=== PATIENT | female | born 1975 | race Caucasian/White ===

== ENCOUNTER → 2018-04-06 | Day surgery (SDC) | payer OTHER ==
--- NOTE | 2018-04-08 09:13 | PATH ---
Surgical Pathology Report Patient Name: MAGGY THURMAN [facility]. Rec. #: [id number] /Age/Gender: 1975 (Age: 42) / F Account: [id number] Location: RADIOLOGY [facility] Taken: 04/06/2018 Received: 04/06/2018 Reported: 04/08/2018 Physicians: Alia Phillips CNM Specimen(s) Received A: RIGHT BREAST 9:00 1.94 CM B: RIGHT AXILLARY 1.59 CM Clinical History Palpable mass Mammographic findings: Highly suspicious/malignant Ultrasound findings: Highly suspicious/malignant Final Diagnosis A. RIGHT BREAST UOQ MASS, ULTRASOUND GUIDED CORE BIOPSY: INVASIVE DUCTAL CARCINOMA, POORLY DIFFERENTIATED (CHANELLE GRADING SYSTEM). THE TUMOR MEASURES AT LEAST 1.5CM IN LARGEST DIMENSION. LYMPHOVASCULAR INVASION IDENTIFIED. B. RIGHT AXILLARY ABNORMAL LOOKING LYMPH NODE, ULTRASOUND GUIDED BIOPSY: METASTATIC CARCINOMA, EXTENSIVELY INVOLVING LYMPH NODE TISSUE. Reports for [place], [place], and [facility] to follow. Interdepartmental case reviewed with consensus on diagnosis. This case was discussed with Dr. Burdick on April 08, 2018. Electronically Signed Maggie Mattson M.D. Gross Description A. Received in formalin labeled "right 9:00," are 5 agustin-yellow, cylindrical portions of fibroadipose tissue ranging from 1.2-1.7 cm in length and averaging 0.1 cm in diameter. The specimens are submitted in toto in one cassette. B. Received in formalin labeled "right axilla," are 3 agustin-yellow, cylindrical portions of fibroadipose tissue ranging from 0.3-1.5 cm in length and averaging 0.1 cm in diameter. The specimens are submitted in toto in one cassette. Time to formalin fixation: Less than one minute Total formalin fixation time: Approximately 6 hours. /04/06/2018 saudi04/06/2018
== END | disposition home or self-care (01) ==
LOC: JRADUS-SUR 10:25
PROVIDERS: ATTEND Midwife
PROC: 0HBT3ZX Excision of Right Breast, Percutaneous Approach, Diagnostic (ICD-10-PCS; principal; 2018-04-06)
PROC: 07D53ZX Extraction of Right Axillary Lymphatic, Percutaneous Approach, Diagnostic (ICD-10-PCS; 2018-04-06)
DX: C50.911 Malignant neoplasm of unspecified site of right female breast (principal); C77.3 Secondary and unspecified malignant neoplasm of axilla and upper limb lymph nodes
CPT/HCPCS: 19083; 19084; 88305-TC; A4648

== ENCOUNTER 2018-05-20 05:28 | Day surgery (SDC) | payer OTHER ==
[2018-05-15 15:25] VITALS: BMI 29.9
[2018-05-20] MEDS ORDERED: HEPARIN NA (PORCINE) 5,000 UNITS/ML 1ML VIAL ONE (15:04)
[2018-05-20] MEDS ORDERED: ceFAZolin SODIUM 1 GM VIAL ONE (15:42)
[2018-05-20] MEDS ORDERED: MIDAZOLAM HCL 2 MG/2 ML SINGLE DOSE VIAL ONE ×2 (15:42)
[2018-05-20] MEDS ORDERED: PROPOFOL 20 ML ONE (15:44)
[2018-05-20] MEDS ORDERED: ceFAZolin SODIUM 1 GM VIAL IVPB ONE (15:51)
[2018-05-20] MEDS ORDERED: LIDOCAINE HCL 1%, 10 MG/ML (20ML VIAL) INF ONE (16:00)
[2018-05-20] MEDS ORDERED: HEPARIN NA (PORCINE) 5,000 UNITS/ML 1ML VIAL SQ ONE (16:10)
[2018-05-20] MEDS ORDERED: ONDANSETRON 4 MG/2 ML VIAL IVPUSH PRN (16:36)
[2018-05-20] MEDS ORDERED: ACETAMINOPHEN 325 MG TABLET (FP) PO PRN (16:36)
[2018-05-20] MEDS ORDERED: LACTATED RINGERS SOLUTION 1,000 ML IV SCH (16:45)
[2018-05-20] MEDS ORDERED: ACETAMINOPHEN 325 MG TABLET (FP) ONE (17:02)
[2018-05-20 18:00] VITALS: BP 133/80; PULSE 78; TEMP 97.5
--- NOTE | 2018-05-20 19:34 | OP ---
DATE OF OPERATION: 05/20/2018 PREOPERATIVE DIAGNOSIS: Breast cancer. POSTOPERATIVE DIAGNOSIS: Breast cancer. PROCEDURE: Left Mediport under fluoroscopy. SURGEON: Sara Novoa M.D. ANESTHESIA: Local, IV sedation. ESTIMATED BLOOD LOSS: Minimal. COMPLICATIONS: None. This was a sterile procedure. INDICATION FOR PROCEDURE: Patient presenting with a locally advanced right breast cancer with a positive lymph node in the axilla. Therefore, recommendation for neoadjuvant chemotherapy and venous access was needed for this neoadjuvant chemotherapy. The procedure of a left Mediport was discussed, and all the questions answered. PROCEDURE IN DETAIL: The patient was brought to [facility] in [place], was taken into the operating room, and after IV sedation and IV antibiotics, the left chest and neck were prepped and draped in usual sterile fashion. The area in the upper left chest was anesthetized with 1% lidocaine without epinephrine. A percutaneous stick of the left subclavian vein was performed, and venous return was noted. The Seldinger technique was used to insert the catheter into the superior vena cava. Appropriate positioning was noted under fluoroscopy. The catheter was then tunneled through. A pocket was created for the Mediport device. The system was flushed with heparinized saline at all times. Once the appropriate pocket was created, the Mediport recess was connected to the catheter, cut at the correct length. The system was then flushed with heparinized saline and brief fluoroscopy was performed to note there were no kinks, and the tip was in the SVC. Once this was done the incision was closed in routine fashion, interrupted 2-0 Vicryl, running 4-0 Biosyn. A sterile dressing with Tegaderm, 4x4s applied. She tolerated the procedure well, was taken to recovery in good condition. SARA NOVOA M.D. [id number] MTDD
== END 2018-05-20 18:06 | disposition home or self-care (01) ==
LOC: JASU-SURG 05:28
PROVIDERS: ATTEND Surgery
PROC: B518ZZA Fluoroscopy of Superior Vena Cava, Guidance (ICD-10-PCS; 2018-05-20)
PROC: 02HV33Z Insertion of Infusion Device into Superior Vena Cava, Percutaneous Approach (ICD-10-PCS; principal; 2018-05-20 14:00)
DX: C50.911 Malignant neoplasm of unspecified site of right female breast (principal)
CPT/HCPCS: 36561; C1751; 71045-TC-FY; 76000-TC-FY; 84703; J1644

== ENCOUNTER 2018-06-10 07:30 | Day surgery (SDC) | payer OTHER ==
[2018-06-10] MEDS ORDERED: SODIUM CHLORIDE 500 ML IV ONE ×2 (09:00→11:30)
[2018-06-10 09:34] LABS: EOS % 1.1 % (0-4.5); HEMATOCRIT 36.8 % (32.4-45.2); HEMOGLOBIN 12.4 GM/dL (10.7-15.3); MCH 29.8 pg (25.7-33.7); MCHC 33.7 g/dl (32.0-36.0); MEAN CELL VOLUME 88.6 fl (80-96); MEAN PLT VOLUME 8.4 fl (7.5-11.1); MONO % 7.9 % (3.8-10.2); PLATELET COUNT 233 K/MM3 (134-434); RBC 4.15 M/mm3 (3.60-5.2); RDW 14.1 % (11.6-15.6); WHITE BLOOD COUNT 6.8 K/mm3 (4.0-10.0)
[2018-06-10] MEDS ORDERED: PALONOSETRON HCL 0.25 MG/5 ML VIAL IVPUSH ONE (10:00)
[2018-06-10] MEDS ORDERED: FOSAPREPITANT DIMEGLUMINE 150 MG in SODIUM CHLORIDE 150 ML IVPB ONE (10:00)
[2018-06-10] MEDS ORDERED: DEXAMETHASONE INJECTION 20 MG in SODIUM CHLORIDE 50 ML IVPB ONE (10:00)
[2018-06-10 10:01] LABS: ALBUMIN 3.5 g/dl (3.4-5.0); ALBUMIN 3.6 g/dl (3.4-5.0); ALK PHOS 111 U/L (45-117); ALK PHOS 114 U/L (45-117); ANION GAP 9 MMOL/L (8-16); BILIRUBIN,DIRECT < 0.2 mg/dL (0.0-0.2); BILIRUBIN,TOTAL 0.2 mg/dL (0.2-1.0); BLOOD UREA NITROGEN 13 mg/dL (7-18); CALCIUM 8.5 mg/dL (8.5-10.1); CHLORIDE 108 mmol/L (98-107); CO2 23 mmol/L (21-32); CREATININE 0.7 mg/dL (0.55-1.02); GLUCOSE,RANDOM 109 mg/dL (74-106); MAGNESIUM 2.3 mg/dL (1.8-2.4); POTASSIUM 4.2 mmol/L (3.5-5.1); SGOT/AST 17 U/L (15-37); SGPT/ALT 23 U/L (12-78); SODIUM 140 mmol/L (136-145); TOT PROT 6.9 g/dl (6.4-8.2); TOT PROT 7.1 g/dl (6.4-8.2)
[2018-06-10] MEDS ORDERED: DOXORUBICIN HCL IV ONE (10:30)
[2018-06-10] MEDS ORDERED: SODIUM CHLORIDE IV ONE (10:30)
[2018-06-10] MEDS ORDERED: CYCLOPHOSPHAMIDE IVPB ONE (11:00)
[2018-06-10] MEDS ORDERED: SODIUM CHLORIDE IVPB ONE (11:00)
[2018-06-10 16:05] VITALS: TEMP 97.6
[2018-06-10] MEDS ORDERED: PORTA CATH FLUSH 10 ML IVPUSH ONE (16:05)
[2018-06-10 16:12] VITALS: BP 123/51; PULSE 88
== END 2018-06-10 15:10 | disposition home or self-care (01) ==
LOC: JONCCHEMO 07:30
PROVIDERS: ATTEND Internal Medicine Hematology & Oncology
DX: Z51.11 Encounter for antineoplastic chemotherapy (principal); C50.911 Malignant neoplasm of unspecified site of right female breast
CPT/HCPCS: 36415; 80053; 80076; 83735; 85025; 96361; 96367; 96375; 96413; 96417; J1100; J1453; J2469; J9070

== ENCOUNTER 2018-06-11 07:26 | Day surgery (SDC) | payer OTHER ==
[2018-06-11] MEDS ORDERED: SODIUM CHLORIDE IVPB ONE (10:00)
[2018-06-11] MEDS ORDERED: PEGFILGRASTIM 6 MG/0.6 ML DISP.SYRIN SQ ONE (10:00)
[2018-06-11] MEDS ORDERED: DEXAMETHASONE IVPB ONE (10:00)
[2018-06-11] MEDS ORDERED: ONDANSETRON IVPB ONE (10:00)
[2018-06-11] MEDS ORDERED: POTASSIUM CHLORIDE 20 MEQ in DEXTROSE 5%-NORMAL SALINE 500 ML IVPB SCH (10:30)
[2018-06-11 16:40] VITALS: BP 115/71; PULSE 108; TEMP 98.1
[2018-06-11] MEDS ORDERED: PORTA CATH FLUSH 10 ML IVPUSH ONE (16:40)
== END 2018-06-11 14:30 | disposition home or self-care (01) ==
LOC: JONCCHEMO 07:26 → J7W 11:45 → JONCCHEMO 14:30
PROVIDERS: ATTEND Internal Medicine Hematology & Oncology
PROC: 3E013GC Introduction of Other Therapeutic Substance into Subcutaneous Tissue, Percutaneous Approach (ICD-10-PCS; principal; 2018-06-11)
PROC: 3E0437Z Introduction of Electrolytic and Water Balance Substance into Central Vein, Percutaneous Approach (ICD-10-PCS; 2018-06-11)
PROC: 3E0 Administration, Physiological Systems and Anatomical Regions, Introduction (ICD-10-PCS; 2018-06-11)
DX: C50.911 Malignant neoplasm of unspecified site of right female breast (principal); Z76.89 Persons encountering health services in other specified circumstances
CPT/HCPCS: 96361; 96365; 96367; 96368; 96372; 96375; J2505

== ENCOUNTER 2018-06-23 07:26 | Day surgery (SDC) | payer OTHER ==
[2018-06-23] MEDS ORDERED: SODIUM CHLORIDE 500 ML IV ONE ×2 (08:00→10:00)
[2018-06-23] MEDS ORDERED: PALONOSETRON HCL 0.25 MG/5 ML VIAL IVPUSH ONE (08:30)
[2018-06-23] MEDS ORDERED: DEXAMETHASONE INJECTION 20 MG in SODIUM CHLORIDE 50 ML IVPB ONE (08:30)
[2018-06-23] MEDS ORDERED: FOSAPREPITANT DIMEGLUMINE 150 MG in SODIUM CHLORIDE 145 ML IVPB ONE (08:30)
[2018-06-23] MEDS ORDERED: SODIUM CHLORIDE IV ONE (09:00)
[2018-06-23] MEDS ORDERED: DOXORUBICIN HCL IV ONE (09:00)
[2018-06-23 09:20] LABS: BASO % 0.8 % (0-2.0); EOS % 0.8 % (0-4.5); HEMATOCRIT 34.5 % (32.4-45.2); HEMOGLOBIN 11.5 GM/dL (10.7-15.3); LYMPH % 18.9 % (8-40); MCH 29.5 pg (25.7-33.7); MCHC 33.3 g/dl (32.0-36.0); MEAN CELL VOLUME 88.6 fl (80-96); MEAN PLT VOLUME 8.2 fl (7.5-11.1); MONO % 10.3 % (3.8-10.2); NEUT % 69.2 % (42.8-82.8); PLATELET COUNT 222 K/MM3 (134-434); RBC 3.89 M/mm3 (3.60-5.2); RDW 14.9 % (11.6-15.6); WHITE BLOOD COUNT 7.8 K/mm3 (4.0-10.0)
[2018-06-23] MEDS ORDERED: CYCLOPHOSPHAMIDE IVPB ONE (09:30)
[2018-06-23] MEDS ORDERED: SODIUM CHLORIDE IVPB ONE (09:30)
[2018-06-23 09:40] LABS: ALBUMIN 3.4 g/dl (3.4-5.0); ALBUMIN 3.5 g/dl (3.4-5.0); ALK PHOS 140 U/L (45-117); ANION GAP 7 MMOL/L (8-16); BILIRUBIN,DIRECT < 0.2 mg/dL (0.0-0.2); BILIRUBIN,TOTAL 0.1 mg/dL (0.2-1.0); BILIRUBIN,TOTAL 0.2 mg/dL (0.2-1.0); BLOOD UREA NITROGEN 18 mg/dL (7-18); CALCIUM 8.7 mg/dL (8.5-10.1); CHLORIDE 111 mmol/L (98-107); CO2 23 mmol/L (21-32); CREATININE 0.5 mg/dL (0.55-1.02); GLUCOSE,RANDOM 98 mg/dL (74-106); MAGNESIUM 2.4 mg/dL (1.8-2.4); POTASSIUM 4.3 mmol/L (3.5-5.1); SGOT/AST 13 U/L (15-37); SGOT/AST 15 U/L (15-37); SGPT/ALT 27 U/L (12-78); SGPT/ALT 28 U/L (12-78); SODIUM 141 mmol/L (136-145); TOT PROT 6.6 g/dl (6.4-8.2); TOT PROT 6.7 g/dl (6.4-8.2)
[2018-06-23 09:42] LABS: ALK PHOS 145 U/L (45-117)
[2018-06-23] MEDS ORDERED: DEXAMETHASONE SOD PHOSPHATE 10 MG/1 ML VIAL ONE (09:58)
[2018-06-23] MEDS ORDERED: ONDANSETRON 4 MG/2 ML VIAL ONE (09:59)
[2018-06-23 10:43] VITALS: TEMP 98.1
[2018-06-23] MEDS ORDERED: PORTA CATH FLUSH 10 ML IVPUSH ONE (10:43)
[2018-06-23 10:54] LABS: ANISOCYTOSIS 3+; MACROCYTOSIS 0; PLATELET ESTIMATE NORMAL; TEAR DROP CELLS 1+
[2018-06-23 14:31] VITALS: BP 118/72; PULSE 80
== END 2018-06-23 14:32 | disposition home or self-care (01) ==
LOC: JONCCHEMO 07:26 → J7W 09:50 → JONCCHEMO 14:32
PROVIDERS: ATTEND Internal Medicine Hematology & Oncology
DX: Z51.11 Encounter for antineoplastic chemotherapy (principal); C50.911 Malignant neoplasm of unspecified site of right female breast
CPT/HCPCS: 36415; 80053; 80076; 83735; 85025; 96361; 96367; 96375; 96413; 96417; J1100; J1453; J2469; J9070

== ENCOUNTER 2018-06-24 07:39 | Day surgery (SDC) | payer OTHER ==
[2018-06-24] MEDS ORDERED: DEXAMETHASONE INJECTION 8 MG, ONDANSETRON INJECTION 8 MG in SODIUM CHLORIDE 100 ML IVPB ONE (09:00)
[2018-06-24] MEDS ORDERED: PEGFILGRASTIM 6 MG/0.6 ML DISP.SYRIN SQ ONE (09:00)
[2018-06-24] MEDS ORDERED: POTASSIUM CHLORIDE 20 MEQ, MAGNESIUM SULFATE 1 GM in DEXTROSE 5%-0.45% SALINE - 500 ML IVPB ONE (09:30)
[2018-06-24 15:50] VITALS: TEMP 98.1
[2018-06-24 16:08] VITALS: BP 126/78; PULSE 74
[2018-06-24] MEDS ORDERED: PORTA CATH FLUSH 10 ML IVPUSH ONE (16:08)
== END 2018-06-24 14:55 | disposition home or self-care (01) ==
LOC: JONCCHEMO 07:39 → J7W 12:41 → JONCCHEMO 14:55
PROVIDERS: ATTEND Internal Medicine Hematology & Oncology
PROC: 3E0437Z Introduction of Electrolytic and Water Balance Substance into Central Vein, Percutaneous Approach (ICD-10-PCS; principal; 2018-06-24)
PROC: 3E043GC Introduction of Other Therapeutic Substance into Central Vein, Percutaneous Approach (ICD-10-PCS; 2018-06-24)
PROC: 3E013GC Introduction of Other Therapeutic Substance into Subcutaneous Tissue, Percutaneous Approach (ICD-10-PCS; 2018-06-24)
DX: C50.911 Malignant neoplasm of unspecified site of right female breast (principal); Z76.89 Persons encountering health services in other specified circumstances
CPT/HCPCS: 96361; 96365; 96367; 96372; 96375; J1100; J2405; J2505

== ENCOUNTER 2018-07-07 07:44 | Day surgery (SDC) | payer OTHER ==
[2018-07-07] MEDS ORDERED: SODIUM CHLORIDE 500 ML IV ONE ×2 (08:00→10:30)
[2018-07-07] MEDS ORDERED: PALONOSETRON HCL 0.25 MG/5 ML VIAL IVPUSH ONE (08:30)
[2018-07-07] MEDS ORDERED: FOSAPREPITANT DIMEGLUMINE 150 MG in SODIUM CHLORIDE 145 ML IVPB ONE (08:30)
[2018-07-07] MEDS ORDERED: DEXAMETHASONE INJECTION 20 MG in SODIUM CHLORIDE 50 ML IVPB ONE (08:30)
[2018-07-07] MEDS ORDERED: DOXORUBICIN HCL IV ONE (09:00)
[2018-07-07] MEDS ORDERED: SODIUM CHLORIDE IV ONE (09:00)
[2018-07-07] MEDS ORDERED: CYCLOPHOSPHAMIDE IVPB ONE (10:00)
[2018-07-07] MEDS ORDERED: SODIUM CHLORIDE IVPB ONE (10:00)
[2018-07-07 10:10] LABS: BASO % 1.4 % (0-2.0); EOS % 0.8 % (0-4.5); HEMATOCRIT 32.4 % (32.4-45.2); HEMOGLOBIN 10.8 GM/dL (10.7-15.3); LYMPH % 16.9 % (8-40); MCH 29.8 pg (25.7-33.7); MCHC 33.5 g/dl (32.0-36.0); MEAN CELL VOLUME 89.1 fl (80-96); MONO % 9.4 % (3.8-10.2); NEUT % 71.5 % (42.8-82.8); PLATELET COUNT 252 K/MM3 (134-434); RBC 3.63 M/mm3 (3.60-5.2); RDW 15.3 % (11.6-15.6); WHITE BLOOD COUNT 7.4 K/mm3 (4.0-10.0)
[2018-07-07 10:42] LABS: ALBUMIN 3.4 g/dl (3.4-5.0); ALK PHOS 115 U/L (45-117); BILIRUBIN,DIRECT < 0.2 mg/dL (0.0-0.2); BILIRUBIN,TOTAL 0.3 mg/dL (0.2-1); MAGNESIUM 2.3 mg/dL (1.8-2.4); SGOT/AST 15 U/L (15-37); SGPT/ALT 24 U/L (13-61); TOT PROT 6.4 g/dl (6.4-8.2)
[2018-07-07 10:43] LABS: ALBUMIN 3.5 g/dl (3.4-5.0); ALK PHOS 122 U/L (45-117); ANION GAP 9 MMOL/L (8-16); BILIRUBIN,TOTAL 0.2 mg/dL (0.2-1); BLOOD UREA NITROGEN 15 mg/dL (7-18); CALCIUM 8.8 mg/dL (8.5-10.1); CHLORIDE 107 mmol/L (98-107); CO2 27 mmol/L (21-32); CREATININE 0.6 mg/dL (0.55-1.3); GLUCOSE,RANDOM 87 mg/dL (74-106); SGOT/AST 14 U/L (15-37); SGPT/ALT 25 U/L (13-61); SODIUM 142 mmol/L (136-145); TOT PROT 6.8 g/dl (6.4-8.2)
[2018-07-07 13:46] LABS: ACANTHOCYTES 0; ANISOCYTOSIS 0; HELMET CELLS 0; HOWELL-JOLLY BODIES 0; MACROCYTOSIS 0; OVALOCYTE 0; PLATELET ESTIMATE NORMAL; ROULEAU 0; SICKELED CELLS 0; TARGET CELLS 0; TEAR DROP CELLS 0; TOXIC GRANULATION 0
[2018-07-07] MEDS ORDERED: PORTA CATH FLUSH 10 ML IVPUSH ONE (18:30)
[2018-07-07 18:31] VITALS: BP 116/65; PULSE 95; TEMP 98.1
== END 2018-07-07 18:34 | disposition home or self-care (01) ==
LOC: JONCCHEMO 07:44 → J7W 12:13 → JONCCHEMO 18:34
PROVIDERS: ATTEND Internal Medicine Hematology & Oncology
DX: Z51.11 Encounter for antineoplastic chemotherapy (principal); C50.911 Malignant neoplasm of unspecified site of right female breast
CPT/HCPCS: 36415; 80053; 80076; 83735; 84702; 85025; 96361; 96367; 96375; 96413; 96417; J1100; J1453; J2469; J9070

== ENCOUNTER 2018-07-08 07:43 | Day surgery (SDC) | payer OTHER ==
[2018-07-08] MEDS ORDERED: DEXAMETHASONE INJECTION 10 MG, ONDANSETRON INJECTION 8 MG in SODIUM CHLORIDE 100 ML IVPB ONE (09:00)
[2018-07-08] MEDS ORDERED: PEGFILGRASTIM 6 MG/0.6 ML DISP.SYRIN SQ ONE (09:00)
[2018-07-08] MEDS ORDERED: POTASSIUM CHLORIDE 20 MEQ in SODIUM CHLORIDE 250 ML IVPB ONE (09:30)
[2018-07-08] MEDS ORDERED: POTASSIUM CHLORIDE 20 MEQ in SODIUM CHLORIDE 500 ML IVPB ONE (09:30)
[2018-07-08 15:43] VITALS: TEMP 98.8
[2018-07-08 16:26] VITALS: BP 110/66; PULSE 105
[2018-07-08] MEDS ORDERED: PORTA CATH FLUSH 10 ML IVPUSH ONE (16:26)
== END 2018-07-08 14:20 | disposition home or self-care (01) ==
LOC: JONCCHEMO 07:43 → J7W 11:36 → JONCCHEMO 14:20
PROVIDERS: ATTEND Internal Medicine Hematology & Oncology
PROC: 3E0437Z Introduction of Electrolytic and Water Balance Substance into Central Vein, Percutaneous Approach (ICD-10-PCS; principal; 2018-07-08)
PROC: 3E043GC Introduction of Other Therapeutic Substance into Central Vein, Percutaneous Approach (ICD-10-PCS; 2018-07-08)
PROC: 3E013GC Introduction of Other Therapeutic Substance into Subcutaneous Tissue, Percutaneous Approach (ICD-10-PCS; 2018-07-08)
DX: C50.911 Malignant neoplasm of unspecified site of right female breast (principal); Z76.89 Persons encountering health services in other specified circumstances
CPT/HCPCS: 96361; 96365; 96367; 96372; 96375; J1100; J2405; J2505

== ENCOUNTER 2018-07-14 11:35 | Day surgery (SDC) | payer OTHER ==
[2018-07-14] MEDS ORDERED: ONDANSETRON 4 MG TABLET PO ONE (12:15)
[2018-07-14] MEDS ORDERED: TBO-FILGRASTIM 480 MCG/0.8 ML DISP.SYRIN SQ ONE (12:45)
[2018-07-14 14:35] VITALS: BP 111/67; PULSE 86; TEMP 98.1
== END 2018-07-14 12:40 | disposition home or self-care (01) ==
LOC: JONCCHEMO 11:35 → J7W 11:56 → JONCCHEMO 12:40
PROVIDERS: ATTEND Internal Medicine Hematology & Oncology
PROC: 3E013GC Introduction of Other Therapeutic Substance into Subcutaneous Tissue, Percutaneous Approach (ICD-10-PCS; principal; 2018-07-14)
DX: Z76.89 Persons encountering health services in other specified circumstances (principal); C50.911 Malignant neoplasm of unspecified site of right female breast
CPT/HCPCS: 96372; J1447

== ENCOUNTER 2018-07-21 07:45 | Day surgery (SDC) | payer OTHER ==
[2018-07-21] MEDS ORDERED: SODIUM CHLORIDE 500 ML IV ONE ×2 (09:00→11:30)
[2018-07-21 10:00] LABS: BASO % 0.4 % (0-2.0); EOS % 0.1 % (0-4.5); HEMATOCRIT 33.1 % (32.4-45.2); HEMOGLOBIN 10.9 GM/dL (10.7-15.3); LYMPH % 6.1 % (8-40); MCH 29.5 pg (25.7-33.7); MCHC 33.1 g/dl (32.0-36.0); MEAN CELL VOLUME 89.3 fl (80-96); MEAN PLT VOLUME 8.1 fl (7.5-11.1); MONO % 2.6 % (3.8-10.2); NEUT % 90.8 % (42.8-82.8); PLATELET COUNT 224 K/MM3 (134-434); RDW 17.9 % (11.6-15.6); WHITE BLOOD COUNT 11.9 K/mm3 (4.0-10.0)
[2018-07-21] MEDS ORDERED: PALONOSETRON HCL 0.25 MG/5 ML VIAL IVPUSH ONE (10:00)
[2018-07-21] MEDS ORDERED: FAMOTIDINE 20 MG/50 ML IVPB 20 MG/50 ML MG IVPB ONE (10:00)
[2018-07-21] MEDS ORDERED: DEXAMETHASONE INJECTION 20 MG, DIPHENHYDRAMINE 50 MG in SODIUM CHLORIDE 100 ML IVPB ONE (10:00)
[2018-07-21 10:23] LABS: ALBUMIN 3.6 g/dl (3.4-5.0); BILIRUBIN,DIRECT 0.1 mg/dL (0.0-0.2); BILIRUBIN,TOTAL 0.2 mg/dL (0.2-1); MAGNESIUM 2.3 mg/dL (1.8-2.4); TOT PROT 7.1 g/dl (6.4-8.2)
[2018-07-21 10:27] LABS: ALBUMIN 3.7 g/dl (3.4-5.0); ALK PHOS 133 U/L (45-117); ANION GAP 5 MMOL/L (8-16); BILIRUBIN,TOTAL 0.2 mg/dL (0.2-1); BLOOD UREA NITROGEN 12 mg/dL (7-18); CALCIUM 9.6 mg/dL (8.5-10.1); CHLORIDE 109 mmol/L (98-107); CO2 25 mmol/L (21-32); CREATININE 0.6 mg/dL (0.55-1.3); GLUCOSE,RANDOM 149 mg/dL (74-106); POTASSIUM 4.3 mmol/L (3.5-5.1); SGOT/AST 14 U/L (15-37); SGPT/ALT 25 U/L (13-61); SODIUM 139 mmol/L (136-145); TOT PROT 7.2 g/dl (6.4-8.2)
[2018-07-21] MEDS ORDERED: PACLITAXEL 144 MG in SODIUM CHLORIDE 250 ML IVPB ONE (10:30)
[2018-07-21 13:01] LABS: ACANTHOCYTES 0; ANISOCYTOSIS 0; HELMET CELLS 0; HOWELL-JOLLY BODIES 0; MACROCYTOSIS 0; OVALOCYTE 0; PLATELET ESTIMATE NORMAL; ROULEAU 0; SICKELED CELLS 0; TARGET CELLS 0; TEAR DROP CELLS 0; TOXIC GRANULATION 0
[2018-07-21 18:06] VITALS: BP 125/77; PULSE 107; TEMP 97.8
[2018-07-21] MEDS ORDERED: PORTA CATH FLUSH 10 ML IVPUSH ONE (18:06)
== END 2018-07-21 15:30 | disposition home or self-care (01) ==
LOC: JONCCHEMO 07:45 → J7W 10:26 → JONCCHEMO 15:30
PROVIDERS: ATTEND Internal Medicine Hematology & Oncology
DX: Z51.11 Encounter for antineoplastic chemotherapy (principal); C50.911 Malignant neoplasm of unspecified site of right female breast
CPT/HCPCS: 36415; 80053; 80076; 83735; 84703; 85025; 96361; 96367; 96375; 96413; 96415; J1100; J2469

== ENCOUNTER 2018-07-28 07:44 | Day surgery (SDC) | payer OTHER ==
[2018-07-28] MEDS ORDERED: FAMOTIDINE 20 MG/50 ML IVPB 20 MG/50 ML MG IVPB ONE (08:00)
[2018-07-28] MEDS ORDERED: PALONOSETRON HCL 0.25 MG/5 ML VIAL IVPUSH ONE (08:00)
[2018-07-28] MEDS ORDERED: DEXAMETHASONE INJECTION 20 MG, DIPHENHYDRAMINE 50 MG in SODIUM CHLORIDE 100 ML IVPB ONE (08:00)
[2018-07-28] MEDS ORDERED: PACLITAXEL 144 MG in SODIUM CHLORIDE 250 ML IVPB ONE (08:30)
[2018-07-28] MEDS ORDERED: SODIUM CHLORIDE 250 ML IV ONE (09:30)
[2018-07-28 09:43] VITALS: TEMP 98.1
[2018-07-28 10:04] LABS: BASO % 0.8 % (0-2.0); EOS % 0.2 % (0-4.5); HEMOGLOBIN 10.7 GM/dL (10.7-15.3); LYMPH % 9.9 % (8-40); MCH 30.9 pg (25.7-33.7); MCHC 34.6 g/dl (32.0-36.0); MEAN CELL VOLUME 89.1 fl (80-96); MONO % 4.5 % (3.8-10.2); NEUT % 84.6 % (42.8-82.8); PLATELET COUNT 403 K/MM3 (134-434); RBC 3.48 M/mm3 (3.60-5.2); RDW 18.2 % (11.6-15.6); WHITE BLOOD COUNT 5.5 K/mm3 (4.0-10.0)
[2018-07-28 10:29] LABS: ALBUMIN 3.8 g/dl (3.4-5.0); BILIRUBIN,DIRECT 0.1 mg/dL (0.0-0.2); BILIRUBIN,TOTAL 0.4 mg/dL (0.2-1); MAGNESIUM 2.3 mg/dL (1.8-2.4)
[2018-07-28 10:45] LABS: ALBUMIN 3.7 g/dl (3.4-5.0); ALK PHOS 100 U/L (45-117); ANION GAP 6 MMOL/L (8-16); BILIRUBIN,TOTAL 0.4 mg/dL (0.2-1); BLOOD UREA NITROGEN 20 mg/dL (7-18); CALCIUM 9.1 mg/dL (8.5-10.1); CHLORIDE 107 mmol/L (98-107); CO2 25 mmol/L (21-32); CREATININE 0.6 mg/dL (0.55-1.3); GLUCOSE,RANDOM 110 mg/dL (74-106); POTASSIUM 4.3 mmol/L (3.5-5.1); SGOT/AST 38 U/L (15-37); SGPT/ALT 69 U/L (13-61); SODIUM 138 mmol/L (136-145); TOT PROT 7.1 g/dl (6.4-8.2)
[2018-07-28 17:52] VITALS: BP 123/68; PULSE 113
[2018-07-28] MEDS ORDERED: PORTA CATH FLUSH 10 ML IVPUSH ONE (17:52)
== END 2018-07-28 15:00 | disposition home or self-care (01) ==
LOC: JONCCHEMO 07:44 → J7W 10:22 → JONCCHEMO 15:00
PROVIDERS: ATTEND Internal Medicine Hematology & Oncology
DX: Z51.11 Encounter for antineoplastic chemotherapy (principal); C50.911 Malignant neoplasm of unspecified site of right female breast
CPT/HCPCS: 36415; 80053; 80076; 83735; 84703; 85025; 96361; 96367; 96375; 96413; J1100; J2469

== ENCOUNTER 2018-08-04 07:14 | Day surgery (SDC) | payer OTHER ==
[2018-08-04 09:17] LABS: BASO % 2.1 % (0-2.0); EOS % 1.4 % (0-4.5); HEMATOCRIT 32.4 % (32.4-45.2); HEMOGLOBIN 10.9 GM/dL (10.7-15.3); LYMPH % 13.8 % (8-40); MCH 30.7 pg (25.7-33.7); MCHC 33.6 g/dl (32.0-36.0); MEAN CELL VOLUME 91.4 fl (80-96); MEAN PLT VOLUME 8.2 fl (7.5-11.1); MONO % 4.9 % (3.8-10.2); NEUT % 77.8 % (42.8-82.8); PLATELET COUNT 326 K/MM3 (134-434); RBC 3.54 M/mm3 (3.60-5.2); RDW 20.4 % (11.6-15.6); WHITE BLOOD COUNT 4.5 K/mm3 (4.0-10.0)
[2018-08-04 09:53] LABS: ALBUMIN 3.5 g/dl (3.4-5.0); ALK PHOS 96 U/L (45-117); ANION GAP 6 MMOL/L (8-16); BILIRUBIN,DIRECT 0.1 mg/dL (0.0-0.2); BILIRUBIN,TOTAL 0.4 mg/dL (0.2-1); BLOOD UREA NITROGEN 17 mg/dL (7-18); CALCIUM 8.7 mg/dL (8.5-10.1); CHLORIDE 110 mmol/L (98-107); CO2 25 mmol/L (21-32); CREATININE 0.5 mg/dL (0.55-1.3); GLUCOSE,RANDOM 119 mg/dL (74-106); MAGNESIUM 2.4 mg/dL (1.8-2.4); POTASSIUM 4.3 mmol/L (3.5-5.1); SGOT/AST 29 U/L (15-37); SGPT/ALT 66 U/L (13-61); SODIUM 141 mmol/L (136-145); TOT PROT 6.4 g/dl (6.4-8.2)
[2018-08-04] MEDS ORDERED: DEXAMETHASONE IVPB ONE (10:00)
[2018-08-04] MEDS ORDERED: SODIUM CHLORIDE IVPB ONE (10:00)
[2018-08-04] MEDS ORDERED: DIPHENHYDRAMINE IVPB ONE (10:00)
[2018-08-04] MEDS ORDERED: FAMOTIDINE 20 MG/50 ML IVPB 20 MG/50 ML MG IVPB ONE (10:00)
[2018-08-04] MEDS ORDERED: PACLITAXEL 144 MG in SODIUM CHLORIDE 250 ML IVPB ONE (10:30)
[2018-08-04] MEDS ORDERED: SODIUM CHLORIDE 250 ML IV ONE (11:30)
[2018-08-04 14:09] VITALS: TEMP 96.6
[2018-08-04] MEDS ORDERED: PORTA CATH FLUSH 10 ML IVPUSH ONE (14:09)
[2018-08-04 14:12] VITALS: BP 126/72; PULSE 80
== END 2018-08-04 13:20 | disposition home or self-care (01) ==
LOC: JONCCHEMO 07:14 → J7W 09:43 → JONCCHEMO 13:20
PROVIDERS: ATTEND Internal Medicine Hematology & Oncology
DX: Z51.11 Encounter for antineoplastic chemotherapy (principal); C50.911 Malignant neoplasm of unspecified site of right female breast
CPT/HCPCS: 36415; 80053; 80076; 83735; 84703; 85025; 96361; 96366; 96367; 96375; 96413; J1100

== ENCOUNTER 2018-08-11 07:47 | Day surgery (SDC) | payer OTHER ==
[2018-08-11] MEDS ORDERED: DIPHENHYDRAMINE IVPB ONE (08:00)
[2018-08-11] MEDS ORDERED: FAMOTIDINE 20 MG/50 ML IVPB 20 MG/50 ML MG IVPB ONE (08:00)
[2018-08-11] MEDS ORDERED: DEXAMETHASONE IVPB ONE (08:00)
[2018-08-11] MEDS ORDERED: SODIUM CHLORIDE IVPB ONE (08:00)
[2018-08-11] MEDS ORDERED: PACLITAXEL 144 MG in SODIUM CHLORIDE 250 ML IVPB ONE (08:30)
[2018-08-11] MEDS ORDERED: SODIUM CHLORIDE 250 ML IV ONE (09:30)
[2018-08-11 09:52] LABS: BASO % 0.9 % (0-2.0); EOS % 1.6 % (0-4.5); HEMOGLOBIN 11.2 GM/dL (10.7-15.3); LYMPH % 11.5 % (8-40); MCH 31.3 pg (25.7-33.7); MCHC 33.9 g/dl (32.0-36.0); MEAN CELL VOLUME 92.4 fl (80-96); MEAN PLT VOLUME 8.3 fl (7.5-11.1); MONO % 2.8 % (3.8-10.2); NEUT % 83.2 % (42.8-82.8); PLATELET COUNT 342 K/MM3 (134-434); RBC 3.57 M/mm3 (3.60-5.2); RDW 20.4 % (11.6-15.6); WHITE BLOOD COUNT 5.3 K/mm3 (4.0-10.0)
[2018-08-11 10:31] LABS: ALBUMIN 3.6 g/dl (3.4-5.0); ALK PHOS 107 U/L (45-117); ANION GAP 11 MMOL/L (8-16); BILIRUBIN,DIRECT 0.1 mg/dL (0.0-0.2); BILIRUBIN,TOTAL 0.4 mg/dL (0.2-1); BLOOD UREA NITROGEN 20 mg/dL (7-18); CALCIUM 8.9 mg/dL (8.5-10.1); CHLORIDE 109 mmol/L (98-107); CO2 22 mmol/L (21-32); CREATININE 0.7 mg/dL (0.55-1.3); GLUCOSE,RANDOM 151 mg/dL (74-106); MAGNESIUM 2.2 mg/dL (1.8-2.4); POTASSIUM 4.6 mmol/L (3.5-5.1); SGOT/AST 32 U/L (15-37); SGPT/ALT 69 U/L (13-61); SODIUM 142 mmol/L (136-145); TOT PROT 6.9 g/dl (6.4-8.2)
[2018-08-11] MEDS ORDERED: PORTA CATH FLUSH 10 ML IVPUSH ONE (14:04)
[2018-08-11 14:48] VITALS: BP 120/75; PULSE 102
[2018-08-11 16:34] VITALS: TEMP 97.8
== END 2018-08-11 14:45 | disposition home or self-care (01) ==
LOC: JONCCHEMO 07:47 → J7W 10:21 → JONCCHEMO 14:45
PROVIDERS: ATTEND Internal Medicine Hematology & Oncology
DX: Z51.11 Encounter for antineoplastic chemotherapy (principal); C50.919 Malignant neoplasm of unspecified site of unspecified female breast
CPT/HCPCS: 36415; 80053; 80076; 83735; 84703; 85025; 96361; 96367; 96375; 96413; J1100

== ENCOUNTER 2018-08-18 07:20 | Day surgery (SDC) | payer OTHER ==
[2018-08-18] MEDS ORDERED: SODIUM CHLORIDE IVPB ONE (08:00)
[2018-08-18] MEDS ORDERED: DEXAMETHASONE IVPB ONE (08:00)
[2018-08-18] MEDS ORDERED: FAMOTIDINE 20 MG/50 ML IVPB 20 MG/50 ML MG IVPB ONE (08:00)
[2018-08-18] MEDS ORDERED: DIPHENHYDRAMINE IVPB ONE (08:00)
[2018-08-18] MEDS ORDERED: PACLITAXEL 144 MG in SODIUM CHLORIDE 250 ML IVPB ONE (08:30)
[2018-08-18] MEDS ORDERED: SODIUM CHLORIDE 250 ML IV ONE (09:30)
[2018-08-18 10:02] LABS: EOS % 1.7 % (0-4.5); HEMATOCRIT 33.7 % (32.4-45.2); HEMOGLOBIN 11.9 GM/dL (10.7-15.3); LYMPH % 11.7 % (8-40); MCH 32.7 pg (25.7-33.7); MCHC 35.4 g/dl (32.0-36.0); MEAN CELL VOLUME 92.5 fl (80-96); MEAN PLT VOLUME 8.1 fl (7.5-11.1); MONO % 2.6 % (3.8-10.2); PLATELET COUNT 325 K/MM3 (134-434); RBC 3.64 M/mm3 (3.60-5.2); RDW 19.8 % (11.6-15.6); WHITE BLOOD COUNT 5.3 K/mm3 (4.0-10.0)
[2018-08-18 10:27] LABS: ALBUMIN 3.7 g/dl (3.4-5.0); ALK PHOS 110 U/L (45-117); ANION GAP 10 MMOL/L (8-16); BILIRUBIN,DIRECT 0.2 mg/dL (0.0-0.2); BILIRUBIN,TOTAL 0.5 mg/dL (0.2-1); BLOOD UREA NITROGEN 16 mg/dL (7-18); CHLORIDE 106 mmol/L (98-107); CO2 24 mmol/L (21-32); CREATININE 0.8 mg/dL (0.55-1.3); GLUCOSE,RANDOM 126 mg/dL (74-106); MAGNESIUM 2.2 mg/dL (1.8-2.4); POTASSIUM 4.8 mmol/L (3.5-5.1); SGOT/AST 33 U/L (15-37); SGPT/ALT 74 U/L (13-61); SODIUM 140 mmol/L (136-145); TOT PROT 7.2 g/dl (6.4-8.2)
[2018-08-18] MEDS ORDERED: LIDOCAINE 2.5%/PRILOCAINE 2.5% (5 Gram/TUBE) TP ONE (11:30)
[2018-08-18] MEDS ORDERED: ACETAMINOPHEN 325 MG TABLET (FP) PO ONE (11:30)
[2018-08-18 15:06] VITALS: PULSE 116; TEMP 98.6
[2018-08-18] MEDS ORDERED: PORTA CATH FLUSH 10 ML IVPUSH ONE (15:06)
[2018-08-18 15:07] VITALS: BP 148/80
== END 2018-08-18 14:40 | disposition home or self-care (01) ==
LOC: JONCCHEMO 07:20 → J7W 11:08 → JONCCHEMO 14:40
PROVIDERS: ATTEND Internal Medicine Hematology & Oncology
DX: Z51.11 Encounter for antineoplastic chemotherapy (principal); C50.919 Malignant neoplasm of unspecified site of unspecified female breast
CPT/HCPCS: 36415; 80053; 80076; 83735; 84703; 85025; 96361; 96367; 96375; 96413; J1100

== ENCOUNTER 2018-08-25 07:32 | Day surgery (SDC) | payer OTHER ==
[2018-08-25] MEDS ORDERED: SODIUM CHLORIDE IVPB ONE (08:00)
[2018-08-25] MEDS ORDERED: DIPHENHYDRAMINE IVPB ONE (08:00)
[2018-08-25] MEDS ORDERED: DEXAMETHASONE IVPB ONE (08:00)
[2018-08-25] MEDS ORDERED: FAMOTIDINE 20 MG/50 ML IVPB 20 MG/50 ML MG IVPB ONE (08:00)
[2018-08-25] MEDS ORDERED: PACLITAXEL 144 MG in SODIUM CHLORIDE 250 ML IVPB ONE (08:30)
[2018-08-25] MEDS ORDERED: SODIUM CHLORIDE 250 ML IV ONE (09:30)
[2018-08-25 10:12] LABS: BASO % 1.1 % (0-2.0); HEMATOCRIT 34.8 % (32.4-45.2); HEMOGLOBIN 11.6 GM/dL (10.7-15.3); LYMPH % 14.4 % (8-40); MCH 30.8 pg (25.7-33.7); MCHC 33.3 g/dl (32.0-36.0); MEAN CELL VOLUME 92.6 fl (80-96); MEAN PLT VOLUME 7.6 fl (7.5-11.1); MONO % 4.5 % (3.8-10.2); PLATELET COUNT 325 K/MM3 (134-434); RBC 3.76 M/mm3 (3.60-5.2); RDW 19.7 % (11.6-15.6); WHITE BLOOD COUNT 4.7 K/mm3 (4.0-10.0)
[2018-08-25 10:54] LABS: ALBUMIN 3.8 g/dl (3.4-5.0); ALK PHOS 100 U/L (45-117); ANION GAP 9 MMOL/L (8-16); BILIRUBIN,DIRECT 0.2 mg/dL (0.0-0.2); BILIRUBIN,TOTAL 0.4 mg/dL (0.2-1); BLOOD UREA NITROGEN 17 mg/dL (7-18); CHLORIDE 106 mmol/L (98-107); CO2 24 mmol/L (21-32); CREATININE 0.7 mg/dL (0.55-1.3); GLUCOSE,RANDOM 104 mg/dL (74-106); MAGNESIUM 2.4 mg/dL (1.8-2.4); POTASSIUM 4.5 mmol/L (3.5-5.1); SGOT/AST 28 U/L (15-37); SGPT/ALT 63 U/L (13-61); SODIUM 140 mmol/L (136-145)
[2018-08-25] MEDS ORDERED: PORTA CATH FLUSH 10 ML IVPUSH ONE (15:54)
[2018-08-25 15:57] VITALS: TEMP 91
[2018-08-25 15:59] VITALS: BP 113/70; PULSE 117
== END 2018-08-25 15:45 | disposition home or self-care (01) ==
LOC: JONCCHEMO 07:32 → J7W 11:12 → JONCCHEMO 15:45
PROVIDERS: ATTEND Internal Medicine Hematology & Oncology
PROC: 3E04305 Introduction of Other Antineoplastic into Central Vein, Percutaneous Approach (ICD-10-PCS; principal; 2018-08-25)
PROC: 3E043GC Introduction of Other Therapeutic Substance into Central Vein, Percutaneous Approach (ICD-10-PCS; 2018-08-25)
PROC: 3E0437Z Introduction of Electrolytic and Water Balance Substance into Central Vein, Percutaneous Approach (ICD-10-PCS; 2018-08-25)
DX: Z51.11 Encounter for antineoplastic chemotherapy (principal); C50.911 Malignant neoplasm of unspecified site of right female breast
CPT/HCPCS: 36415; 80053; 80076; 83735; 84703; 85025; 96361; 96367; 96375; 96413; J1100

== ENCOUNTER 2018-09-01 07:32 | Day surgery (SDC) | payer OTHER ==
[2018-09-01 09:59] LABS: BASO % 1.1 % (0-2.0); EOS % 2.3 % (0-4.5); HEMATOCRIT 33.2 % (32.4-45.2); HEMOGLOBIN 11.7 GM/dL (10.7-15.3); LYMPH % 15.3 % (8-40); MCH 32.4 pg (25.7-33.7); MCHC 35.1 g/dl (32.0-36.0); MEAN CELL VOLUME 92.3 fl (80-96); MONO % 3.6 % (3.8-10.2); NEUT % 77.7 % (42.8-82.8); PLATELET COUNT 345 K/MM3 (134-434); RBC 3.59 M/mm3 (3.60-5.2); RDW 19.2 % (11.6-15.6); WHITE BLOOD COUNT 4.8 K/mm3 (4.0-10.0)
[2018-09-01] MEDS ORDERED: FAMOTIDINE 20 MG/50 ML IVPB 20 MG/50 ML MG IVPB ONE (10:00)
[2018-09-01] MEDS ORDERED: DIPHENHYDRAMINE IVPB ONE (10:00)
[2018-09-01] MEDS ORDERED: DEXAMETHASONE IVPB ONE (10:00)
[2018-09-01] MEDS ORDERED: SODIUM CHLORIDE IVPB ONE (10:00)
[2018-09-01] MEDS ORDERED: PACLITAXEL 144 MG in SODIUM CHLORIDE 250 ML IVPB ONE (10:30)
[2018-09-01 10:37] LABS: ALBUMIN 3.5 g/dl (3.4-5.0); ALK PHOS 89 U/L (45-117); ANION GAP 13 MMOL/L (8-16); BILIRUBIN,DIRECT 0.1 mg/dL (0.0-0.2); BILIRUBIN,TOTAL 0.5 mg/dL (0.2-1); BLOOD UREA NITROGEN 15 mg/dL (7-18); CALCIUM 9.1 mg/dL (8.5-10.1); CHLORIDE 105 mmol/L (98-107); CO2 20 mmol/L (21-32); CREATININE 0.9 mg/dL (0.55-1.3); GLUCOSE,RANDOM 142 mg/dL (74-106); MAGNESIUM 2.1 mg/dL (1.8-2.4); POTASSIUM 4.6 mmol/L (3.5-5.1); SGOT/AST 26 U/L (15-37); SGPT/ALT 52 U/L (13-61); SODIUM 138 mmol/L (136-145); TOT PROT 6.8 g/dl (6.4-8.2)
[2018-09-01] MEDS ORDERED: SODIUM CHLORIDE 250 ML IV ONE (11:30)
[2018-09-01] MEDS ORDERED: DEXAMETHASONE SOD PHOSPHATE 10 MG/1 ML VIAL IVPB ONE (12:15)
[2018-09-01 17:14] VITALS: TEMP 98.5
[2018-09-01] MEDS ORDERED: PORTA CATH FLUSH 10 ML IVPUSH ONE (17:21)
[2018-09-01 17:22] VITALS: BP 115/66; PULSE 116
== END 2018-09-01 14:45 | disposition home or self-care (01) ==
LOC: JONCCHEMO 07:32 → J7W 10:37 → JONCCHEMO 14:45
PROVIDERS: ATTEND Internal Medicine Hematology & Oncology
DX: Z51.11 Encounter for antineoplastic chemotherapy (principal); C50.911 Malignant neoplasm of unspecified site of right female breast
CPT/HCPCS: 36415; 80053; 80076; 83735; 84703; 85025; 96361; 96367; 96375; 96413; J1100

== ENCOUNTER 2018-09-08 07:22 | Day surgery (SDC) | payer OTHER ==
[2018-09-08 09:20] VITALS: TEMP 97.9
[2018-09-08 09:52] LABS: EOS % 2.1 % (0-4.5); HEMATOCRIT 33.3 % (32.4-45.2); HEMOGLOBIN 11.8 GM/dL (10.7-15.3); LYMPH % 13.2 % (8-40); MCH 32.6 pg (25.7-33.7); MCHC 35.3 g/dl (32.0-36.0); MEAN CELL VOLUME 92.2 fl (80-96); MEAN PLT VOLUME 8.3 fl (7.5-11.1); MONO % 4.8 % (3.8-10.2); NEUT % 78.9 % (42.8-82.8); PLATELET COUNT 355 K/MM3 (134-434); RBC 3.62 M/mm3 (3.60-5.2); RDW 17.9 % (11.6-15.6); WHITE BLOOD COUNT 4.5 K/mm3 (4.0-10.0)
[2018-09-08] MEDS ORDERED: DIPHENHYDRAMINE IVPB ONE (10:00)
[2018-09-08] MEDS ORDERED: FAMOTIDINE 20 MG/50 ML IVPB 20 MG/50 ML MG IVPB ONE (10:00)
[2018-09-08] MEDS ORDERED: SODIUM CHLORIDE IVPB ONE (10:00)
[2018-09-08] MEDS ORDERED: DEXAMETHASONE SODIUM PHOSPHATE IVPB ONE (10:00)
[2018-09-08 10:21] LABS: ALBUMIN 3.6 g/dl (3.4-5.0); ALK PHOS 99 U/L (45-117); ANION GAP 9 MMOL/L (8-16); BILIRUBIN,DIRECT 0.2 mg/dL (0.0-0.2); BILIRUBIN,TOTAL 0.3 mg/dL (0.2-1); BLOOD UREA NITROGEN 17 mg/dL (7-18); CHLORIDE 105 mmol/L (98-107); CO2 23 mmol/L (21-32); CREATININE 0.8 mg/dL (0.55-1.3); GLUCOSE,RANDOM 122 mg/dL (74-106); MAGNESIUM 2.4 mg/dL (1.8-2.4); POTASSIUM 4.6 mmol/L (3.5-5.1); SGOT/AST 19 U/L (15-37); SGPT/ALT 51 U/L (13-61); SODIUM 138 mmol/L (136-145); TOT PROT 6.9 g/dl (6.4-8.2)
[2018-09-08] MEDS ORDERED: PACLITAXEL 144 MG in SODIUM CHLORIDE 250 ML IVPB ONE (10:30)
[2018-09-08] MEDS ORDERED: SODIUM CHLORIDE 250 ML IV ONE (11:30)
[2018-09-08] MEDS ORDERED: PORTA CATH FLUSH 10 ML IVPUSH ONE (16:52)
[2018-09-08 16:56] VITALS: BP 122/75; PULSE 109
== END 2018-09-08 14:15 | disposition home or self-care (01) ==
LOC: JONCCHEMO 07:22 → J7W 10:24 → JONCCHEMO 14:15
PROVIDERS: ATTEND Internal Medicine Hematology & Oncology
DX: Z51.11 Encounter for antineoplastic chemotherapy (principal); C50.911 Malignant neoplasm of unspecified site of right female breast
CPT/HCPCS: 36415; 80053; 80076; 83735; 84702; 84703; 85025; 96361; 96367; 96375; 96413

== ENCOUNTER 2018-09-15 07:25 | Day surgery (SDC) | payer OTHER ==
[2018-09-15 09:27] LABS: BASO % 0.8 % (0-2.0); EOS % 2.2 % (0-4.5); HEMATOCRIT 31.6 % (32.4-45.2); HEMOGLOBIN 11.1 GM/dL (10.7-15.3); LYMPH % 16.7 % (8-40); MCHC 35.2 g/dl (32.0-36.0); MEAN CELL VOLUME 93.8 fl (80-96); MEAN PLT VOLUME 8.1 fl (7.5-11.1); MONO % 5.1 % (3.8-10.2); NEUT % 75.2 % (42.8-82.8); PLATELET COUNT 352 K/MM3 (134-434); RBC 3.36 M/mm3 (3.60-5.2); RDW 17.6 % (11.6-15.6); WHITE BLOOD COUNT 4.4 K/mm3 (4.0-10.0)
[2018-09-15 10:00] LABS: ALBUMIN 3.5 g/dl (3.4-5.0); ALK PHOS 97 U/L (45-117); ANION GAP 9 MMOL/L (8-16); BILIRUBIN,DIRECT 0.1 mg/dL (0.0-0.2); BILIRUBIN,TOTAL 0.3 mg/dL (0.2-1); BLOOD UREA NITROGEN 14 mg/dL (7-18); CALCIUM 8.6 mg/dL (8.5-10.1); CHLORIDE 109 mmol/L (98-107); CO2 24 mmol/L (21-32); CREATININE 0.8 mg/dL (0.55-1.3); GLUCOSE,RANDOM 125 mg/dL (74-106); MAGNESIUM 2.3 mg/dL (1.8-2.4); POTASSIUM 4.6 mmol/L (3.5-5.1); SGOT/AST 20 U/L (15-37); SGPT/ALT 48 U/L (13-61); SODIUM 141 mmol/L (136-145); TOT PROT 6.6 g/dl (6.4-8.2)
[2018-09-15] MEDS ORDERED: DIPHENHYDRAMINE IVPB ONE (10:00)
[2018-09-15] MEDS ORDERED: DEXAMETHASONE SODIUM PHOSPHATE IVPB ONE (10:00)
[2018-09-15] MEDS ORDERED: FAMOTIDINE 20 MG/50 ML IVPB 20 MG/50 ML MG IVPB ONE (10:00)
[2018-09-15] MEDS ORDERED: SODIUM CHLORIDE IVPB ONE (10:00)
[2018-09-15] MEDS ORDERED: PACLITAXEL 144 MG in SODIUM CHLORIDE 250 ML IVPB ONE (10:30)
[2018-09-15] MEDS ORDERED: DEXAMETHASONE SOD PHOSPHATE 4 MG/1 ML VIAL IVPB ONE (11:00)
[2018-09-15] MEDS ORDERED: SODIUM CHLORIDE 250 ML IV ONE (11:30)
[2018-09-15 13:03] LABS: ANISOCYTOSIS 1+; MACROCYTOSIS 1+
[2018-09-15 15:01] VITALS: TEMP 98
[2018-09-15 15:15] VITALS: BP 124/71; PULSE 115
[2018-09-15] MEDS ORDERED: PORTA CATH FLUSH 10 ML IVPUSH ONE (15:15)
== END 2018-09-15 14:35 | disposition home or self-care (01) ==
LOC: JONCCHEMO 07:25 → J7W 10:35 → JONCCHEMO 14:35
PROVIDERS: ATTEND Internal Medicine Hematology & Oncology
DX: Z51.11 Encounter for antineoplastic chemotherapy (principal); C50.911 Malignant neoplasm of unspecified site of right female breast
CPT/HCPCS: 36415; 80053; 80076; 83735; 84703; 85025; 96361; 96367; 96375; 96413

== ENCOUNTER 2018-09-22 07:29 | Day surgery (SDC) | payer OTHER ==
[2018-09-22 09:18] LABS: BASO % 1.1 % (0-2.0); HEMOGLOBIN 10.8 GM/dL (10.7-15.3); LYMPH % 12.1 % (8-40); MCH 32.6 pg (25.7-33.7); MCHC 34.7 g/dl (32.0-36.0); MEAN CELL VOLUME 93.9 fl (80-96); MEAN PLT VOLUME 8.5 fl (7.5-11.1); MONO % 4.4 % (3.8-10.2); NEUT % 80.4 % (42.8-82.8); PLATELET COUNT 335 K/MM3 (134-434); RDW 16.8 % (11.6-15.6)
[2018-09-22 09:44] LABS: ALBUMIN 3.4 g/dl (3.4-5.0); ALK PHOS 89 U/L (45-117); ANION GAP 7 MMOL/L (8-16); BILIRUBIN,DIRECT 0.1 mg/dL (0.0-0.2); BILIRUBIN,TOTAL 0.3 mg/dL (0.2-1); BLOOD UREA NITROGEN 14 mg/dL (7-18); CALCIUM 8.6 mg/dL (8.5-10.1); CHLORIDE 107 mmol/L (98-107); CO2 26 mmol/L (21-32); CREATININE 0.7 mg/dL (0.55-1.3); GLUCOSE,RANDOM 141 mg/dL (74-106); MAGNESIUM 2.1 mg/dL (1.8-2.4); POTASSIUM 4.5 mmol/L (3.5-5.1); SGOT/AST 24 U/L (15-37); SGPT/ALT 52 U/L (13-61); SODIUM 140 mmol/L (136-145); TOT PROT 6.4 g/dl (6.4-8.2)
[2018-09-22] MEDS ORDERED: FAMOTIDINE 20 MG/50 ML IVPB 20 MG/50 ML MG IVPB ONE (10:00)
[2018-09-22] MEDS ORDERED: DEXAMETHASONE SODIUM PHOSPHATE 12 MG, DIPHENHYDRAMINE 50 MG in SODIUM CHLORIDE 100 ML IVPB ONE (10:00)
[2018-09-22] MEDS ORDERED: MAGNESIUM SULF 50% (8.12 MEQ/2 ML-1 GM VIAL) ONE (10:01)
[2018-09-22] MEDS ORDERED: D5-NS + 20 MEQ KCL - 20 MEQ/1,000 ML INFUS.BAG IV SCH (10:30)
[2018-09-22] MEDS ORDERED: MAGNESIUM SULF 50% (8.12 MEQ/2 ML-1 GM VIAL) IVPB ONE (10:30)
[2018-09-22] MEDS ORDERED: PACLITAXEL 144 MG in SODIUM CHLORIDE 250 ML IVPB ONE (10:30)
[2018-09-22] MEDS ORDERED: SODIUM CHLORIDE 250 ML IV ONE (11:30)
[2018-09-22 15:20] VITALS: BP 125/79; PULSE 115; TEMP 98.3
[2018-09-22] MEDS ORDERED: PORTA CATH FLUSH 10 ML IVPUSH ONE (15:20)
== END 2018-09-22 12:30 | disposition home or self-care (01) ==
LOC: JONCCHEMO 07:29 → JONCNONCHE 07:29 → J7W 09:53 → JONCCHEMO 12:30
PROVIDERS: ATTEND Internal Medicine Hematology & Oncology
PROC: 3E043GC Introduction of Other Therapeutic Substance into Central Vein, Percutaneous Approach (ICD-10-PCS; principal; 2018-09-22)
PROC: 3E043GC Introduction of Other Therapeutic Substance into Central Vein, Percutaneous Approach (ICD-10-PCS; 2018-09-22)
DX: C50.911 Malignant neoplasm of unspecified site of right female breast (principal); Z76.89 Persons encountering health services in other specified circumstances
CPT/HCPCS: 36415; 80053; 80076; 83735; 84702; 84703; 85025; 96360; 96361; 96365; 96366; 96368

== ENCOUNTER 2018-11-10 10:00 | Inpatient (IN) | payer OTHER ==
[2018-11-24 16:31] VITALS: BMI 31.6
[2018-11-25 07:51] LABS: URINE APPEARANCE CLEAR; URINE BILIRUBIN NEGATIVE (<2.0 mg/dL); URINE COLOR LTYELLOW; URINE GLUCOSE (UA) NEGATIVE (NEGATIVE); URINE KETONE NEGATIVE (NEGATIVE); URINE LEUK ESTERASE NEGATIVE (NEGATIVE); URINE NITRITE NEGATIVE (NEGATIVE); URINE PROTEIN NEGATIVE (NEGATIVE); URINE UROBILINOGEN NEGATIVE mg/dL (0.2-1.0)
[2018-11-25 07:53] LABS: HCG,QUALITATIVE URINE Negative
[2018-11-25] MEDS ORDERED: BUPIVACAINE LIPOSOME/PF (EXPAREL) 266 MG/20 ML VIAL ONE (12:32)
[2018-11-25] MEDS ORDERED: BUPIVACAINE HCL/PF 0.5% (5MG/ML) 10 ML VIAL ONE ×2 (12:33)
[2018-11-25] MEDS ORDERED: MIDAZOLAM HCL 2 MG/2 ML SINGLE DOSE VIAL ONE ×2 (13:00)
[2018-11-25] MEDS ORDERED: PROPOFOL 20 ML ONE (13:00)
[2018-11-25] MEDS ORDERED: KETAMINE HCL 200 MG/20 ML VIAL ONE (13:00)
[2018-11-25] MEDS ORDERED: SUCCINYLCHOLINE CHLORIDE 200 MG/10 ML VIAL ONE (13:00)
[2018-11-25] MEDS ORDERED: LIDOCAINE HCL/PF 2% SDV 5ML VIAL ONE (13:02)
[2018-11-25] MEDS ORDERED: DEXAMETHASONE SOD PHOSPHATE 4 MG/1 ML VIAL ONE (13:02)
[2018-11-25] MEDS ORDERED: ceFAZolin SODIUM 1 GM VIAL ONE ×3 (13:02→21:31)
[2018-11-25] MEDS ORDERED: SODIUM CHLORIDE 0.9% P/F 10 ML VIAL IJ ONE (13:02)
[2018-11-25] MEDS ORDERED: KETOROLAC TROMETHAMINE 30 MG/1 ML VIAL ONE (13:02)
--- NOTE | 2018-11-25 13:07 | HP ---
History & Physical Update - History History: No Change - Physical Physical: No Change - Assessment Assessment: No Change - Plan Plan: No Change (Full H&P in chart from 11/16/18)
[2018-11-25] MEDS ORDERED: ISOSULFAN BLUE 10 MG/ML VIAL SQ ONE (13:35)
[2018-11-25] MEDS ORDERED: ceFAZolin SODIUM 1 GM VIAL IVPB ONE (13:55)
[2018-11-25] MEDS ORDERED: DESFLURANE GAS 240 ML BOTTLE IH ONE (16:00)
[2018-11-25] MEDS ORDERED: GENTAMICIN SO4 80 MG/2 ML VIAL ONE (16:05)
[2018-11-25] MEDS ORDERED: ONDANSETRON 4 MG/2 ML VIAL IVPUSH PRN (16:24)
[2018-11-25] MEDS ORDERED: HYDROmorphone *PCA* 10MG/50ML DISP.SYRIN PCA SCH (16:30)
[2018-11-25] MEDS ORDERED: LACTATED RINGERS SOLUTION 1000 ML INFUS.BAG IV SCH (16:30)
[2018-11-25] MEDS ORDERED: LACTATED RINGERS SOLUTION 1,000 ML IV SCH (17:30)
[2018-11-25] MEDS ORDERED: CEFAZOLIN 1 GM in DEXTROSE 5%-WATER - 50 ML IVPB SCH ×2 (18:00→22:00)
--- NOTE | 2018-11-25 19:34 | SURG ---
Surgery Sheriffs Detective Note Sheriffs Detective: Dany Frye PA-C Date of Service: 11/25/18 Diagnosis: Breast cancer Procedure: Bilateral breast reconstruction with alloderm and expanders I was present for the entirety of the operative procedure. For further detail, please refer to operative report. Visit type - Case Type Case Type: Scheduled - Emergency Emergency Visit: No - New patient This patient is new to me today: Yes Date on this admission: 11/25/18
[2018-11-25] MEDS ORDERED: ACETAMINOPHEN INJECTION 100 ML IVPB ONE (19:40)
--- NOTE | 2018-11-25 19:52 | OP ---
Operative Note - Note: Operative Date: 11/25/18 Pre-Operative Diagnosis: bilateral absence of breasts Findings: bilateral breast reconstruction with tissue cargo service agent and alloderm with right axillary complex closure Implants: tissue cargo service agent x 2: Rut [id number] Post-Operative Diagnosis: Same as Pre-op Surgeon: Jigar Pierre Orchid Transplanter: Dany Frye Anesthesia: General Drains & Tubes with Location: LEANN x 2 per side
[2018-11-25] MEDS ORDERED: HYDROmorphone HCl 2 MG/ML VIAL ONE (19:53)
[2018-11-25] MEDS: HYDROmorphone HCL/PF 1 MG/ML AMP IVPUSH PRN ×2 (19:55→20:25)
[2018-11-25] MEDS ORDERED: ACETAMINOPHEN 1000 MG/100 ML VIAL (NON FORMULARY) IVPB ONE (19:58)
[2018-11-25] MEDS ORDERED: HEPARIN NA (PORCINE) 5,000 UNITS/ML 1ML VIAL SQ SCH (22:00)
[2018-11-25] MEDS: LACTATED RINGERS SOLUTION 1,000 ML IV SCH (22:00)
[2018-11-26] MEDS: oxyCODONE HCL 5 MG TABLET PO PRN ×6 (00:54→19:25)
[2018-11-26] MEDS: ACETAMINOPHEN 325 MG TABLET (FP) PO PRN ×4 (00:55→16:07)
[2018-11-26] MEDS: CEFAZOLIN 1 GM/D5W 1 GM/50 ML BAG IVPB SCH ×3 (05:18→21:05)
[2018-11-26] MEDS: LACTATED RINGERS SOLUTION 1,000 ML IV SCH ×2 (06:08→21:05)
--- NOTE | 2018-11-26 08:04 | OP ---
DATE OF OPERATION: 11/25/2018 PREOPERATIVE DIAGNOSIS: Right breast cancer. POSTOPERATIVE DIAGNOSIS: Right breast cancer. PROCEDURE: Bilateral total mastectomy, right axillary wire excision of lymph node, right sentinel node biopsy, removal of left Mediport. SURGEON: Francesco Salomon MD DOCTOR OSTEOPATHIC: Jigar Pierre MD ANESTHESIA: General. ESTIMATED BLOOD LOSS: 400 mL DRAINS: None. COMPLICATIONS: None. This was a sterile procedure. INDICATION FOR PROCEDURE: Patient had presented with palpable mass in the outer right breast. Needle biopsy showed an ER/TN positive, HER2/mayr negative, invasive duct carcinoma. She also had a pathologic-appearing lymph node in the right axilla on imaging; therefore, biopsy of both of these was done. She had a positive lymph node with adenocarcinoma. Therefore, she had neoadjuvant chemotherapy which essentially made the right 9 o'clock mass resolve on exam. The lymph node significantly decreased in size. We discussed the options, and decision was to go ahead with a right mastectomy as well as a prophylactic left mastectomy, as well as a right sentinel node biopsy and to remove the lymph node with the clip within this. The procedure was discussed with all her questions answered. She met with Plastic Surgery to discuss reconstruction. PROCEDURE IN DETAIL: Patient was brought to [facility] in [place], taken first to breast imaging where ultrasound guidance was used by the radiologist to localize the lymph node with the clip in the right axilla. She was then taken to nuclear medicine where I injected technetium-labeled sulfur colloid as an intradermal injection at the right 9 o'clock location. She was then brought up to the operating room, and after bilateral pectoral blocks by the anesthesiologist, she was taken into the operating room. After induction of general anesthesia and IV antibiotics, both breasts and axilla were scrubbed and then prepped and draped in the usual sterile fashion. Next, 5 mL of isosulfan blue dye was injected into the right subareolar plexus, and her breast was massaged for 5 minutes. Next, the area was prepped and draped in usual sterile fashion. A 4-cm incision was made in the right axilla, and the wire was used as a guide to get down to the area of interest which was a lymph node that was hot but not blue, was taken as sentinel lymph node number 1, hot, not blue, with the wire intact within this. This was sent for specimen radiograph. Next, there were 3 other sentinel lymph nodes removed. One was right axillary sentinel node number 2 that was blue and hot. The third one was blue, but not hot, and the fourth one was hot, but not blue. These were all sent to Pathology for permanent section. Hemostasis was assured with electrocautery. Next, the right mastectomy was performed. An ellipse of skin was taken to include the nipple-areolar complex, and superior, inferior, medial, and lateral flaps were raised. Breast was reflected medial to lateral off the pectoralis muscle. This was tagged with a stitch at the lateral edge and sent to Pathology for permanent section as right mastectomy. Next, gown, gloves, instruments were changed, and then, next, the left mastectomy was performed. A 10 blade was used to include the nipple-areolar complex with the mastectomy, and superior, inferior, medial, and lateral flaps were created. The breast was reflected off the pectoralis muscle, tagged with a stitch at the lateral edge and sent to Pathology for permanent section. At this point, I encountered the Mediport in the upper left chest, and this was removed separately without difficulty. This was also sent to Pathology. Hemostasis was assured with electrocautery. The patient tolerated the procedure well. She was left with Dr. Pierre to finish the reconstructive part of the procedure. FRANCESCO SALOMON M.D. [id number] cc: Edin Garrido MD
--- NOTE | 2018-11-26 09:19 | PN ---
Progress Note (short form) - Note Progress Note: POD 1 VSS AF LEANN all thin and functioning well - serosanguinous CBC pending Ambulating SQ heparin started All skin is viable, no collections Aashish PO Urinating Pt to seen by Dr. Salomon tomorrow and discharged if meets criteria. f/u with Dr. Salomon in one week and me in 2 weeks.
[2018-11-26] MEDS ORDERED: PT OWN MED DRAWER 7, Y5N ONE (09:37)
[2018-11-26] MEDS: HEPARIN NA (PORCINE) 5,000 UNITS/ML 1ML VIAL SQ SCH ×3 (09:49→21:06)
--- NOTE | 2018-11-26 12:25 | OP ---
DATE OF OPERATION: 11/25/2018 TITLE OF PROCEDURE: Bilateral breast reconstruction using tissue expanders and acellular dermal matrix allograft to bilateral sides, as well as a 4-cm, complex wound closure to the right axilla. Intraoperative angiography assessment for skin perfusion. ATTENDING SURGEON: Jigar Pierre MD The procedure is performed in combination with a bilateral mastectomy and right-sided sentinel lymph node biopsy performed by Dr. Sara Salomon. That portion of the procedure will be dictated separately by Dr. Sara Salomon. DAYCARE PROVIDER: For my portion of the case is KATERYNA Casper. ANESTHESIA: General endotracheal anesthesia. DESCRIPTION OF PROCEDURE: Patient had been marked preoperatively in the holding area. The inframammary folds were noted. The left was slightly higher than the right which was to be corrected by the new placement of the tissue expanders. The plan is for transverse periareolar mastectomy incisions. Patient is awake and aware of all incisions and resulting scars. She is given a gram of Ancef preoperatively. GISELLA hose and sequential compression stockings are applied. She is brought to the operating room and placed in supine position. She is given a Madsen catheter. She is padded all extremities. Position is checked by surgical and anesthesia teams. The patient is then prepped and draped in the standard surgical fashion. A dual prep is used using both Betadine scrub and ChloraPrep. The patient is then prepped and draped sterilely and the mastectomy on the right side is then performed. Only upon the completion of the mastectomy on the right side does my portion begin. At this point, the lateral border of the pectoralis major muscle is identified and a subpectoral plane is dissected. Hemostasis is meticulously achieved. The extent of the dissection is to the medial fibers attaching to the sternum and inferiorly to a marking which is 1 cm inferior to the current inframammary fold. Hemostasis is then meticulously achieved throughout the entire wound. At this point, the acellular dermal matrix is then brought onto the field. It is rinsed with triple-antibiotic solution. Given a 16-cm-width tissue venture capitalist, the markings are made from the medial extent of the pocket to a point 16 cm lateral to this. The AlloDerm was fixed to the chest wall, oriented properly with the dermal side externally, then secured with a running, locking 2-0 PDS suture. The tissue venture capitalist was then brought onto the field with new gloves and a one-touch technique. The tissue venture capitalist is placed into the pocket. It is evacuated of all air. Once it is oriented properly, the free edge of the AlloDerm is then sewn to the lateral free edge of the muscle. At this point, this closure is performed with a 2-0 PDS suture. The Magna-Finder is used to identify the port of the tissue venture capitalist. It should also be noted that prior to final closure of the AlloDerm, the suture tabs are used laterally and superiorly to secure the position of the tissue venture capitalist. They are secured to the chest wall with a 2-0 PDS suture. The tissue venture capitalist is then inflated to 200 mL of saline. The skin is tailor-tacked. Attention is then directed to the contralateral side. On the contralateral side, a mirror-image procedure is performed. The same style and size tissue venture capitalist is placed. AlloDerm is used as it was on the patient's right side. Hemostasis is meticulously achieved. The final fill volume of the tissue venture capitalist is also 200 mL. At the completion of this, the skin is once again tailor-tacked with richard and the SPY indocyanine perfusion scan intraoperative angiography is performed which revealed good perfusion to the superior and inferior skin flaps bilaterally. At this point, size-10 flat LEANN drains are brought out through lateral stab wound incisions, secured with 3-0 silk drain suture. There is a drain placed in the lateral recess and superior aspect of the mastectomy wound, then a separate drain along the inferior recess. The distal several millimeters of skin of the mastectomy flaps are then trimmed using scissors. Good dermal bleeding is appreciated. The deep fatty tissue of the mastectomy flaps is then closed with a running 3-0 Monocryl suture. The dermis is then approximated with a series of interrupted buried deep dermal 3-0 Monocryl suture. The skin is then closed with a running subcuticular 3-0 Monocryl suture. The closure of the axilla is performed with a series of interrupted deep 3-0 Vicryl axillary fascia closure, followed by a 4-cm closure of the axillary wound after debridement of the edges with scissors. This closure is performed with a series of interrupted buried deep dermal 3-0 Monocryl suture, followed by a running subcuticular 3-0 Monocryl suture. Patient's wounds are dressed with 1/2-inch Steri-Strips, ABD gauze, 4 x 4 gauze, and a surgical bra. She is awoken from anesthesia. Drains are placed to bulb suction. Transferred to recovery without complication. JIGAR PIERRE M.D. [id number]
[2018-11-26] MEDS: MORPHINE SULFATE 2 MG/ML VIAL IVPUSH PRN (23:40)
[2018-11-27] MEDS: oxyCODONE HCL 5 MG TABLET PO PRN ×2 (02:11→08:27)
[2018-11-27] MEDS: ACETAMINOPHEN 325 MG TABLET (FP) PO PRN ×2 (02:13→08:28)
[2018-11-27 03:40] VITALS: PULSE 101
[2018-11-27] MEDS ORDERED: PT OWN MED DRAWER 7, Y5N ONE (05:44)
[2018-11-27] MEDS: CEFAZOLIN 1 GM/D5W 1 GM/50 ML BAG IVPB SCH (05:54)
[2018-11-27] MEDS: MORPHINE SULFATE 2 MG/ML VIAL IVPUSH PRN (05:58)
[2018-11-27 07:00] VITALS: BP 112/62; TEMP 99.2
[2018-11-27 07:51] LABS: HEMATOCRIT 27.9 % (32.4-45.2); HEMOGLOBIN 9.4 GM/dL (10.7-15.3); MCH 29.7 pg (25.7-33.7); MCHC 33.7 g/dl (32.0-36.0); MEAN CELL VOLUME 88.2 fl (80-96); MEAN PLT VOLUME 8.7 fl (7.5-11.1); PLATELET COUNT 209 K/MM3 (134-434); RBC 3.16 M/mm3 (3.60-5.2); RDW 14.6 % (11.6-15.6); WHITE BLOOD COUNT 6.9 K/mm3 (4.0-10.0)
[2018-11-27] MEDS: HEPARIN NA (PORCINE) 5,000 UNITS/ML 1ML VIAL SQ SCH (09:53)
--- NOTE | 2018-11-27 13:12 | PN ---
Progress Note (short form) - Note Progress Note: pod 2 s/p bl mastectomy temp 99.2, VSS mastectomy flaps viable, JPs in place pain control on percocet, ambulating d/c home today she will see me in one week
--- NOTE | 2018-12-02 11:47 | PATH ---
Surgical Pathology Report Patient Name: MAGGY THURMAN [facility]. Rec. #: [id number] /Age/Gender: 1975 (Age: 43) / F Account: [id number] Location: [address] [place] [address]/[facility] Taken: 11/25/2018 Received: 11/25/2018 Reported: 12/02/2018 Physicians: Alia Pittman Specimen(s) Received A: RIGHT SENTINEL LYMPH NODE #1 B: RIGHT AXILLARY SENTINEL LYMPH NODE #2 C: RIGHT AXILLARY SENTINEL LYMPH NODE #3 D: RIGHT BREAST, MASTECTOMY E: RIGHT SENTINEL LYMPH NODE #4 F: OLD PORT-A-CATH G: LEFT BREAST, MASTECTOMY H: RIGHT MASTECTOMY OF SKIN I: LEFT MASTECTOMY OF SKIN Clinical History Right breast cancer Final Diagnosis A. AXILLARY SENTINEL LYMPH NODE #1, RIGHT, EXCISION: BENIGN FIBROADIPOSE TISSUE AND SCANT SKELETAL MUSCLE. NO LYMPHOID TISSUE IDENTIFIED. B. AXILLARY SENTINEL LYMPH NODE #2, RIGHT, EXCISION: ONE LYMPH NODE WITH FOCAL HYALINIZING FIBROSIS CONSISTENT WITH TREATMENT-RELATED CHANGES. NO CARCINOMA IDENTIFIED ON H&E AND CONFIRMED BY AE1/3 IMMUNOHISTOCHEMICAL STAIN (0/1). C. AXILLARY SENTINEL LYMPH NODE #3, RIGHT, EXCISION: TWO LYMPH NODES NEGATIVE FOR CARCINOMA (0/2). D. BREAST, RIGHT, MASTECTOMY: THREE (3) FOCI OF INVASIVE DUCTAL CARCINOMA, MODERATELY DIFFERENTIATED (TUBULE SCORE: 3/3, NUCLEAR GRADE: 3/3, MITOTIC SCORE: 1/3; TOTAL CHANELLE SCORE: 7/9), SPANNING UP TO 8 MM IN GREATEST MICROSCOPIC DIMENSION, LOCATED AT UPPER AND LOWER OUTER QUADRANTS (UOQ, LOQ). INVASIVE CARCINOMA PRESENT IN A BACKGROUND OF DENSE HYALINIZING FIBROSIS CONSISTENT WITH PARTIALLY TREATED TUMOR BED TISSUE; INVASIVE CARCINOMA COMPRISES APPROXIMATELY 15% OF FIBROTIC TUMOR BED. EXTENSIVE DUCTAL CARCINOMA IN SITU (DCIS), SOLID TYPE, HIGH NUCLEAR GRADE, ASSOCIATED WITH CENTRAL NECROSIS, MICROCALCIFICATIONS, AND LOBULAR CANCERIZATION. NO LYMPHOVASCULAR INVASION IDENTIFIED. SURGICAL MARGINS ARE UNINVOLVED BY CARCINOMA; CARCINOMA IS 1 CM FROM CLOSEST ANTERIOR MARGIN. SKIN AND NIPPLE ARE PRESENT AND UNINVOLVED BY CARCINOMA. REMAINDER OF BREAST TISSUE SHOWS FIBROCYSTIC CHANGES, INCLUDING MICROCYSTS, SCLEROSING ADENOSIS, AND MILD PERIDUCTAL CHRONIC INFLAMMATION WITH ASSOCIATED MICROCALCIFICATIONS. PATHOLOGIC STAGE (pTNM): ypT1b(m) ypN0. SEE INVASIVE CARCINOMA CASE SUMMARY BELOW. E. AXILLARY SENTINEL LYMPH NODE #4, RIGHT, EXCISION: FOUR LYMPH NODES NEGATIVE FOR CARCINOMA (0/4). F. OLD PORT-A-CATH, REMOVAL: CATHETER. MACROSCOPIC DIAGNOSIS. G. MASTECTOMY, BREAST, LEFT: BENIGN BREAST TISSUE WITH FIBROCYSTIC CHANGES INCLUDING STROMAL FIBROSIS, MICROCYSTS, AND MILD FOCAL PERIDUCTAL CHRONIC INFLAMMATION. SKIN AND NIPPLE WITHOUT SIGNIFICANT PATHOLOGIC FINDINGS. H. SKIN, MASTECTOMY, RIGHT, EXCISION: SKIN WITH MILD SUPERFICIAL DERMIS, PERIADNEXAL, AND PERIVASCULAR ACUTE AND CHRONIC INFLAMMATION. I. SKIN, MASTECTOMY, LEFT, EXCISION: SKIN WITH MILD SUPERFICIAL DERMIS, PERIADNEXAL, AND PERIVASCULAR ACUTE AND CHRONIC INFLAMMATION. Comments: Part D, Immunohistochemical stains performed and interpreted at [facility] show loss of myoepithelial cells (p63 and SMM-HC: negative) in the areas of invasive carcinoma; while positive for E-cadherin. Comments Breast Invasive Carcinoma: Surgical Pathology Case Summary (Based on AJCC TNM 8 th edition) Procedure _X__ Total mastectomy (including nipple-sparing and skin-sparing mastectomy) Specimen Laterality _X__ Right Tumor Size _X__ Greatest dimension of largest invasive focus >1 mm (specify exact measurement) (millimeters): _8__ mm Histologic Type _X__ Invasive carcinoma of no special type (ductal, not otherwise specified) Histologic Grade (Chanelle Histologic Score) Glandular (Acinar)/Tubular Differentiation _X__ Score 3 (<10% of tumor area forming glandular/tubular structures) Nuclear Pleomorphism _X__ Score 3 Mitotic Rate _X__ Score 1 Overall Grade _X__ Grade 2 (scores of 6 or 7) Tumor Focality _X_ Multiple foci of invasive carcinoma Number of foci: 3 Sizes of individual foci: _8 mm, 1 mm, 1.2 mm Ductal Carcinoma In Situ (DCIS) _X__ DCIS is present in specimen _X__ Positive for EIC Margins Invasive Carcinoma Margins _X__ Uninvolved by invasive carcinoma Distance from closest margin (millimeters): 1 cm Closest margin: Anterior DCIS Margins _X__ Uninvolved by DCIS Distance from closest margin (millimeters): widely free Regional Lymph Nodes Number of Lymph Nodes with Macrometastases (>2 mm): 0 Number of Lymph Nodes with Micrometastases (>0.2 mm to 2 mm and/or >200 cells): 0 Number of Lymph Nodes with Isolated Tumor Cells (=0.2 mm and =200 cells): 0 Number of Lymph Nodes Examined: 7 Number of Causey Nodes Examined : 7 Treatment Effect Treatment Effect in the Breast _X__ Probable or definite response to presurgical therapy in the invasive carcinoma Treatment Effect in the Lymph Nodes _X__ No lymph node metastases. Fibrous scarring, possibly related to prior lymph node metastases with pathologic complete response Lymphovascular Invasion _X__ Not identified Pathologic Stage Classification (pTNM, AJCC 8th Edition) TNM Descriptors _X__m (multiple foci of invasive carcinoma) _X__ y (posttreatment) Primary Tumor (Invasive Carcinoma) (pT) _X__ pT1b: Tumor >5 mm but =10 mm in greatest dimension Regional Lymph Nodes (pN) Category (pN) _X__ pN0: No regional lymph node metastasis identified or ITCs only Biomarker Studies Results of ER and AR studies performed on this specimen (block# D9) at [facility] are as follows: ER (clone [id number] mouse monoclonal antibody by [employer]): ~70% nuclear staining with moderate to strong intensity (Positive). AR (clone16 mouse monoclonal antibody by [employer]): 0% nuclear staining (Negative). Results of Her2 (IHC) & Ki-67 studies performed on this specimen (block# D9) at [place], [place] ( [id number]) are as follows: Her2 IHC (EP3 from [employer], formerly known as [id number], using [employer] Polymer Refine detection kit): 0 (Negative). Ki67: ~5% (Low proliferative index). Positive and negative controls (internal if applicable) show appropriate results. Formalin fixation and cold ischemic times are within current ASCO/CAP recommendations for ER, AR and Her2 testing. Electronically Signed Karol Evans M.D. Gross Description A. Received fresh on an [employer] labeled "right wire lobe excision of lymph node (sentinel lymph node #1)," is a 4.5 x 2.5 x 1.7 cm portion of fibroadipose tissue with a needle localization wire present. There are no orienting sutures present. There is no skin present. No definite lymph node is identified upon sectioning. The specimen is sectioned and entirely submitted in 5 cassettes. B. Received in formalin labeled "right axillary sentinel lymph node #2," is a 3.2 x 2.0 x 0.6 cm portion of soft tissue, consistent with a lymph node. There is a viveros metallic biopsy clip identified within the lymph node. The specimen is bisected and entirely submitted 2 cassettes. C. Received in formalin labeled "right axillary sentinel lymph node #3," are 2 lymph nodes with attached fat measuring 0.4 and 0.7 cm in greatest dimension. The lymph nodes are bisected and entirely submitted in 2 cassettes as follows: 1-2-one bisected lymph node each. D. Received in formalin, labeled "right breast mastectomy," is an 899 gram, 16.5 x 15.0 x 6.5 cm. right mastectomy specimen with a suture marking the lateral edge of the skin, per the surgeon. The anterior surface displays a 12.5 x 4.0 cm agustin, elliptical portion of skin with a 1.1 cm diameter nipple. The deep margin is inked black and the anterior soft tissue margin is inked blue. The specimen is serially sectioned from lateral to medial. Sectioning reveals a 6.0 x 4.0 x 3.5 cm focus of dense, firm fibrous tissue spanning the upper outer quadrant (UOQ) and lower outer quadrant (LOQ). There is a viveros metallic biopsy clip identified within the focus of tissue in the LOQ. No definitive residual mass is identified. The remaining breast parenchyma displays multifocal dense white fibrous tissue. Hammer Adjuster sections are submitted in 16 cassettes as follows: 1-serially sectioned nipple; 2-subareolar shave; 3-LOQ section with biopsy clip and the anterior soft tissue margin; 4-additional tissue surrounding biopsy clip; 1-0-qmiqifyiqz dense fibrous tissue from LOQ near biopsy clip; 8-10-UOQ dense fibrous tissue near biopsy clip; 11-12-upper inner quadrant; 13-14-lower inner quadrant; 15-skin; 16-deep margin. Total formalin fixation time: Approximately 26 hours E. Received in formalin labeled "right axillary sentinel lymph node #4," is a 4.5 x 2.2 x 0.3 cm aggregate of yellow, lobulated adipose tissue possibly containing a lymph node. The specimen is entirely submitted in 2 cassettes. F. Received fresh labeled "old Port-A-Cath," is a 2.5 x 2.5 x 1.4 cm viveros metallic device, consistent with a port-a-cath. The Port-A-Cath displays a 22 cm in length portion of white tubing extending from one aspect. No soft tissue is present. No sections are submitted, gross only. G. Received in formalin, labeled "left mastectomy," is a 937 gram, 18.0 x 16.5 x 6.5 cm. left mastectomy specimen with a suture marking the lateral edge of the skin, per the surgeon. The anterior surface displays a 14.0 x 4.3 cm agustin, elliptical portion of skin with a 1.1 cm in diameter nipple. The deep margin is inked black and the anterior soft tissue margin is inked blue. The specimen is serially sectioned from medial to lateral. Sectioning reveals abundant dense white fibrous tissue. No definitive mass is identified. Hammer Adjuster sections are submitted in 16 cassettes as follows: 1-serially sectioned nipple; 2-subareolar shave; 3-4-upper outer quadrant; 5-6-lower outer quadrant; 2-0-anfefxpffcwu tissue; 9-11-upper inner quadrant; 12-13-lower inner quadrant; 14-anterior soft tissue margin; 15-skin; 16-deep margin. Total formalin fixation time: Approximately 26 hours H. Received in formalin labeled "right mastectomy skin," is a 14.0 x 1.5 x 0.3 cm aggregate of multiple unoriented, focally stapled portions of agustin skin. No discrete epidermal lesions are identified. Hammer Adjuster sections are submitted in one cassette. I. Received in formalin labeled "left mastectomy skin," is a 16.5 x 1.4 x 0.3 cm aggregate of multiple unoriented portions of agustin skin. No discrete epidermal lesions are identified. Hammer Adjuster sections are submitted in one cassette. 11/26/2018 [facility]
== END 2018-11-27 14:29 | disposition home health service (06) | DRG 362 ==
LOC: EDSTATUS 10:00 → JSAMEDAYSX 11-25 07:22 → J6S 11-25 21:52
PROVIDERS: ADMIT Surgery; ATTEND Plastic Surgery
PROC: 4A1GXSH Monitoring of Skin and Breast Vascular Perfusion using Indocyanine Green Dye, External Approach (ICD-10-PCS; 2018-11-25)
PROC: 0H0V0ZZ Alteration of Bilateral Breast, Open Approach (ICD-10-PCS; 2018-11-25)
PROC: 0HTV0ZZ Resection of Bilateral Breast, Open Approach (ICD-10-PCS; principal; 2018-11-25 11:00)
PROC: 07B50ZX Excision of Right Axillary Lymphatic, Open Approach, Diagnostic (ICD-10-PCS; 2018-11-25 11:00)
PROC: 0HHV0NZ Insertion of Tissue Expander into Bilateral Breast, Open Approach (ICD-10-PCS; 2018-11-25 11:00)
DX: C50.911 Malignant neoplasm of unspecified site of right female breast (principal); Z40.01 Encounter for prophylactic removal of breast; Z17.0 Estrogen receptor positive status [ER+]
CPT/HCPCS: 19281; 36415; 78195-TC; 81003; 84703; 85027; 88300-TC; 88304-TC; 88307-TC; 88341-TC; 94010; 94760; A9541; J0131; J1644

== ENCOUNTER 2019-05-06 07:11 | Day surgery (SDC) | payer OTHER ==
[2019-05-06 08:32] LABS: BASO % 0.7 % (0-2.0); EOS % 1.7 % (0-4.5); HEMATOCRIT 39.2 % (32.4-45.2); HEMOGLOBIN 13.2 GM/dL (10.7-15.3); LYMPH % 29.8 % (8-40); MCH 29.5 pg (25.7-33.7); MCHC 33.6 g/dl (32.0-36.0); MEAN PLT VOLUME 8.2 fl (7.5-11.1); MONO % 5.4 % (3.8-10.2); NEUT % 62.4 % (42.8-82.8); PLATELET COUNT 259 K/MM3 (134-434); RBC 4.45 M/mm3 (3.60-5.2); WHITE BLOOD COUNT 5.8 K/mm3 (4.0-10.0)
[2019-05-06 09:06] LABS: ALBUMIN 3.6 g/dl (3.4-5.0); BILIRUBIN,DIRECT 0.1 mg/dL (0.0-0.2); BILIRUBIN,TOTAL 0.4 mg/dL (0.2-1); BLOOD UREA NITROGEN 16.8 mg/dL (7-18); CALCIUM 9.1 mg/dL (8.5-10.1); CREATININE 0.8 mg/dL (0.55-1.3); MAGNESIUM 2.5 mg/dL (1.8-2.4); POTASSIUM 4.1 mmol/L (3.5-5.1); TOT PROT 7.2 g/dl (6.4-8.2)
[2019-05-06] MEDS ORDERED: LIDOCAINE HCL 1%, 10 MG/ML (20ML VIAL) ID ONE (10:00)
[2019-05-06] MEDS ORDERED: GOSERELIN ACETATE 3.6 MG IMPLANT SYRINGE SQ ONE (10:00)
[2019-05-06 14:05] VITALS: BP 107/70; PULSE 76; TEMP 98.4
[2019-05-07 03:07] LABS: FOLLICLE STIMULATING HORMONE 71.1 mIU/mL (.)
== END 2019-05-06 11:50 | disposition home or self-care (01) ==
LOC: JONCCHEMO 07:11 → J7W 09:53 → JONCCHEMO 11:50
PROVIDERS: ATTEND Internal Medicine Hematology & Oncology
DX: Z51.11 Encounter for antineoplastic chemotherapy (principal); C50.911 Malignant neoplasm of unspecified site of right female breast
CPT/HCPCS: 36415; 80048; 80076; 82670; 82728; 82977; 83001; 83002; 83540; 83550; 83735; 84702; 85025; 96402; J9202

== ENCOUNTER 2019-06-03 06:56 | Day surgery (SDC) | payer OTHER ==
[2019-06-03 08:45] LABS: BASO % 0.6 % (0-2.0); EOS % 2.4 % (0-4.5); HEMATOCRIT 39.6 % (32.4-45.2); HEMOGLOBIN 13.5 GM/dL (10.7-15.3); LYMPH % 32.1 % (8-40); MCH 30.5 pg (25.7-33.7); MCHC 34.1 g/dl (32.0-36.0); MEAN CELL VOLUME 89.3 fl (80-96); MEAN PLT VOLUME 8.4 fl (7.5-11.1); MONO % 6.3 % (3.8-10.2); NEUT % 58.6 % (42.8-82.8); PLATELET COUNT 271 K/MM3 (134-434); RBC 4.43 M/mm3 (3.60-5.2); RDW 14.4 % (11.6-15.6); WHITE BLOOD COUNT 5.1 K/mm3 (4.0-10.0)
[2019-06-03 09:00] LABS: ALBUMIN 3.7 g/dl (3.4-5.0); BILIRUBIN,DIRECT 0.2 mg/dL (0.0-0.2); BILIRUBIN,TOTAL 0.6 mg/dL (0.2-1); BLOOD UREA NITROGEN 15.9 mg/dL (7-18); CALCIUM 9.2 mg/dL (8.5-10.1); CREATININE 0.7 mg/dL (0.55-1.3); MAGNESIUM 2.4 mg/dL (1.8-2.4); POTASSIUM 4.4 mmol/L (3.5-5.1); TOT PROT 7.2 g/dl (6.4-8.2)
[2019-06-03] MEDS ORDERED: GOSERELIN ACETATE 3.6 MG IMPLANT SYRINGE SQ ONE (10:00)
[2019-06-03] MEDS ORDERED: LIDOCAINE HCL 1%, 10 MG/ML (20ML VIAL) ID ONE (10:00)
[2019-06-03 14:06] VITALS: BP 119/64; PULSE 77; TEMP 97.3
[2019-06-04 03:07] LABS: FOLLICLE STIMULATING HORMONE 3.8 mIU/mL (.); LUTEINIZING HORMONE 2.3 mIU/mL (.)
== END 2019-06-03 10:35 | disposition home or self-care (01) ==
LOC: JONCCHEMO 06:56 → J7W 10:15 → JONCCHEMO 10:35
PROVIDERS: ATTEND Internal Medicine Hematology & Oncology
DX: Z51.11 Encounter for antineoplastic chemotherapy (principal); C50.911 Malignant neoplasm of unspecified site of right female breast
CPT/HCPCS: 36415; 72100-TC-FY; 80048; 80076; 82607; 82670; 83001; 83002; 83036; 83735; 84439; 84443; 84703; 85025; 86593; 96402; J9202

== ENCOUNTER 2019-07-01 05:20 | Day surgery (SDC) | payer OTHER ==
[2019-07-01 09:45] LABS: BASO % 0.7 % (0-2.0); EOS % 5.2 % (0-4.5); HEMOGLOBIN 13.9 GM/dL (10.7-15.3); LYMPH % 27.7 % (8-40); MCH 30.1 pg (25.7-33.7); MCHC 33.1 g/dl (32.0-36.0); MEAN CELL VOLUME 90.7 fl (80-96); MEAN PLT VOLUME 8.9 fl (7.5-11.1); MONO % 4.3 % (3.8-10.2); NEUT % 62.1 % (42.8-82.8); PLATELET COUNT 267 K/MM3 (134-434); RBC 4.63 M/mm3 (3.60-5.2); RDW 14.6 % (11.6-15.6); WHITE BLOOD COUNT 6.1 K/mm3 (4.0-10.0)
[2019-07-01] MEDS ORDERED: GOSERELIN ACETATE 3.6 MG IMPLANT SYRINGE SQ ONE (10:00)
[2019-07-01] MEDS ORDERED: LIDOCAINE HCL 1%, 10 MG/ML (20ML VIAL) ID ONE (10:00)
[2019-07-01 10:15] LABS: ALBUMIN 3.9 g/dl (3.4-5.0); BILIRUBIN,TOTAL 0.5 mg/dL (0.2-1); BLOOD UREA NITROGEN 16.1 mg/dL (7-18); CALCIUM 9.7 mg/dL (8.5-10.1); CREATININE 0.7 mg/dL (0.55-1.3); MAGNESIUM 2.5 mg/dL (1.8-2.4); TOT PROT 7.4 g/dl (6.4-8.2)
[2019-07-01 15:13] VITALS: BP 144/59; PULSE 65; TEMP 98.6
[2019-07-03 07:09] LABS: FOLLICLE STIMULATING HORMONE 4.1 mIU/mL (.); LUTEINIZING HORMONE 0.1 mIU/mL (.)
== END 2019-07-01 11:00 | disposition home or self-care (01) ==
LOC: JONCCHEMO 05:20 → J7W 10:14 → JONCCHEMO 11:00
PROVIDERS: ATTEND Internal Medicine Hematology & Oncology
DX: Z51.11 Encounter for antineoplastic chemotherapy (principal); C50.911 Malignant neoplasm of unspecified site of right female breast
CPT/HCPCS: 36415; 80053; 82728; 83001; 83002; 83540; 83550; 83735; 84703; 85025; 96402; J9202

== ENCOUNTER 2019-07-29 07:10 | Day surgery (SDC) | payer OTHER ==
[2019-07-29 08:48] VITALS: TEMP 97.7
[2019-07-29 09:28] LABS: BASO % 0.6 % (0-2.0); EOS % 2.9 % (0-4.5); HEMATOCRIT 41.3 % (32.4-45.2); LYMPH % 33.1 % (8-40); MCH 29.9 pg (25.7-33.7); MCHC 33.9 g/dl (32.0-36.0); MEAN CELL VOLUME 88.4 fl (80-96); MEAN PLT VOLUME 8.7 fl (7.5-11.1); MONO % 7.1 % (3.8-10.2); NEUT % 56.3 % (42.8-82.8); PLATELET COUNT 271 K/MM3 (134-434); RBC 4.67 M/mm3 (3.60-5.2); RDW 14.3 % (11.6-15.6); WHITE BLOOD COUNT 5.6 K/mm3 (4.0-10.0)
[2019-07-29] MEDS ORDERED: GOSERELIN ACETATE 3.6 MG IMPLANT SYRINGE SQ ONE (10:00)
[2019-07-29] MEDS ORDERED: LIDOCAINE HCL 1%, 10 MG/ML (20ML VIAL) ID ONE (10:00)
[2019-07-29 10:01] LABS: ALBUMIN 3.7 g/dl (3.4-5.0); BILIRUBIN,TOTAL 0.4 mg/dL (0.2-1); BLOOD UREA NITROGEN 17.4 mg/dL (7-18); CREATININE 0.7 mg/dL (0.55-1.3); MAGNESIUM 2.4 mg/dL (1.8-2.4); POTASSIUM 4.4 mmol/L (3.5-5.1); TOT PROT 7.3 g/dl (6.4-8.2)
[2019-07-29 10:52] VITALS: BP 124/68; PULSE 66
[2019-08-01 06:37] LABS: FOLLICLE STIMULATING HORMONE 4.7 mIU/mL (.); LUTEINIZING HORMONE 0.1 mIU/mL (.)
== END 2019-07-29 10:45 | disposition home or self-care (01) ==
LOC: JONCCHEMO 07:10 → J7W 10:23 → JONCCHEMO 10:45
PROVIDERS: ATTEND Internal Medicine Hematology & Oncology
DX: Z51.11 Encounter for antineoplastic chemotherapy (principal); C50.911 Malignant neoplasm of unspecified site of right female breast
CPT/HCPCS: 36415; 80053; 82670; 83001; 83002; 83735; 85025; 96402; J9202

== ENCOUNTER 2019-08-26 07:21 | Day surgery (SDC) | payer OTHER ==
[2019-08-26 08:42] LABS: BASO % 0.6 % (0-2.0); EOS % 2.8 % (0-4.5); HEMATOCRIT 41.3 % (32.4-45.2); HEMOGLOBIN 13.9 GM/dL (10.7-15.3); LYMPH % 32.7 % (8-40); MCH 29.8 pg (25.7-33.7); MCHC 33.7 g/dl (32.0-36.0); MEAN CELL VOLUME 88.5 fl (80-96); MEAN PLT VOLUME 8.3 fl (7.5-11.1); MONO % 5.6 % (3.8-10.2); NEUT % 58.3 % (42.8-82.8); PLATELET COUNT 276 K/MM3 (134-434); RBC 4.66 M/mm3 (3.60-5.2); RDW 14.4 % (11.6-15.6); WHITE BLOOD COUNT 5.6 K/mm3 (4.0-10.0)
[2019-08-26 08:46] VITALS: TEMP 97.8
[2019-08-26 09:04] LABS: IRON SERUM 67 ug/dL (50-175); TOTAL IRON BINDING CAPACITY 330 ug/dL (250-450)
[2019-08-26 09:08] LABS: ALBUMIN 3.6 g/dl (3.4-5.0); BILIRUBIN,TOTAL 0.3 mg/dL (0.2-1); BLOOD UREA NITROGEN 16.2 mg/dL (7-18); CALCIUM 9.4 mg/dL (8.5-10.1); CREATININE 0.8 mg/dL (0.55-1.3); MAGNESIUM 2.4 mg/dL (1.8-2.4); POTASSIUM 4.1 mmol/L (3.5-5.1); TOT PROT 7.4 g/dl (6.4-8.2)
[2019-08-26] MEDS ORDERED: GOSERELIN ACETATE 3.6 MG IMPLANT SYRINGE SQ ONE (10:00)
[2019-08-26] MEDS ORDERED: LIDOCAINE HCL 1%, 10 MG/ML (20ML VIAL) ID ONE (10:00)
[2019-08-26 14:47] VITALS: BP 122/91; PULSE 71
[2019-08-27 07:07] LABS: FOLLICLE STIMULATING HORMONE 5.1 mIU/mL (.); LUTEINIZING HORMONE 0.1 mIU/mL (.)
== END 2019-08-26 11:40 | disposition home or self-care (01) ==
LOC: JONCCHEMO 07:21 → J7W 10:15 → JONCCHEMO 11:40
PROVIDERS: ATTEND Internal Medicine Hematology & Oncology
DX: Z51.11 Encounter for antineoplastic chemotherapy (principal); C50.911 Malignant neoplasm of unspecified site of right female breast
CPT/HCPCS: 36415; 80053; 82306; 82670; 82728; 83001; 83002; 83540; 83550; 83735; 84702; 85025; 96402; J9202

== ENCOUNTER 2019-09-21 06:44 | Inpatient (IN) | payer OTHER ==
[2019-09-20 13:35] VITALS: BMI 32.9
[2019-09-21] MEDS ORDERED: BUPIVACAINE LIPOSOME/PF (EXPAREL) 266 MG/20 ML VIAL ONE (07:11)
[2019-09-21] MEDS ORDERED: HEPARIN NA (PORCINE) 5,000 UNITS/ML 1ML VIAL ONE ×2 (07:11→07:31)
[2019-09-21] MEDS ORDERED: LIDOCAINE HCL 4% PRESERVE-FREE 5 ML AMP ONE (07:14)
[2019-09-21] MEDS ORDERED: ceFAZolin SODIUM 1 GM VIAL ONE (07:31)
[2019-09-21] MEDS ORDERED: ceFAZolin SODIUM 1 GM VIAL IVPB ONE ×3 (08:21→16:48)
[2019-09-21] MEDS ORDERED: HEPARIN NA (PORCINE) 5,000 UNITS/ML 1ML VIAL SQ ONE (08:24)
[2019-09-21] MEDS ORDERED: LIDOCAINE HCL 4% PRESERVE-FREE 5 ML AMP TP ONE (13:12)
[2019-09-21] MEDS ORDERED: BUPIVACAINE LIPOSOME/PF (EXPAREL) 266 MG/20 ML VIAL IJ ONE (13:13)
[2019-09-21] MEDS ORDERED: BACITRACIN 50,000 UNITS VIAL TP ONE (17:38)
[2019-09-21] MEDS ORDERED: ONDANSETRON 4 MG/2 ML VIAL IVPUSH PRN (19:26)
[2019-09-21] MEDS ORDERED: ZOLPIDEM TARTRATE 5 MG TABLET PO PRN (19:26)
[2019-09-21] MEDS ORDERED: PROCHLORPERAZINE MALEATE 25 MG SUPP.RECT PR PRN (19:26)
[2019-09-21] MEDS ORDERED: morphine CARPU-JECT 2 MG/1 ML DISP.SYRIN IVPUSH PRN (19:26)
--- NOTE | 2019-09-21 19:34 | OP ---
Operative Note - Note: Operative Date: 09/21/19 Pre-Operative Diagnosis: absence of breasts Operation: Bilateral CONSTANZA flap breast reconstruction Post-Operative Diagnosis: Same as Pre-op Surgeon: Jigar Pierre Professor Of Psychology: Joseph Cardenas Anesthesia: General Operative Report Dictated: Yes
--- NOTE | 2019-09-21 19:48 | OPR ---
DATE OF OPERATION: 09/21/19 ATTENDING SURGEON: Jigar Pierre MD CO-SURGEON: Joseph Cardenas MD ENAMEL SHADER: Mi Rodriguez PREOPERATIVE DIAGNOSIS: Abence of Bilateral Breasts POSTOPERATIVE DIAGNOSIS: PROCEDURE PERFORMED: 1. Bilateral breast reconstruction with CONSTANZA (deep inferior epigastric perforators) flap. 2. Bilateral ligation of SIEV (superficial inferior epigastric vein). 3. Left Ligation of superficial circumflex iliac vein 4. Bilateral Regla-prosthetic capsulectomy of breasts 5. Bilateral removal of in tact breast prostheses 6. Bilateral intercostal nerve block for postoperative pain relief. 7. Bilateral transversus abdominis plane block for postoperative pain relief. COMPLICATIONS: None. ESTIMATED BLOOD LOSS: 300 mL DESCRIPTION OF PROCEDURE: Position is checked and padded. Madsen catheter is placed. SCD's and TEDS are applied. 5000 u sq heparin and 1g ancef are given. Time out is called and all verified. The patient was brought to the OR in conjunction with . Theresa , the breasts were addressed initially with incisions directly over the existing scars. Dissection is carried down to the capsule. An en bloc capsulectomy is performed along with the in tact breast prosthesis. the pectoralis muscle is then placed ont he chest wall and sutured in place with a 2-0 vicryl suture. This capsulectomy and implant removal is repeated bilaterally At the abdomen the previously marked ellipse of tissue from just above the umbilicus down to the pubic hairline was incised using a 15 blade scalpel. Dissection was carried down through the subcutaneous tissues using electrocautery, beveling away from the flap in order to increase the volume of the flap. At the right side, 6 cm off the midline, the superficial inferior epigastric artery and vein were identified. They were meticulously freed of all surrounding tissue, and they were traced down to their origin in the groin where they were ligated and divided and kept in continuity with the flap in case they were needed later in the flap for additional inflow or outflow to the flap. At the left side, 6 cm off the midline the left superficial inferior epigastric artery and vein were identified. Using microsurgical technique, they were meticulously dissected down to their origin in the groin where they were ligated and divided. They were kept in continuity with the left CONSTANZA flap in case they were needed later in the case for additional inflow or outflow to the flap. A large left superficial circumflex iliac vein was also noted and this was dissected into the groin and preserved with the flap. the vein is ligated distally with a medium clip. Attention was first paid to harvest of the right CONSTANZA flap. The right CONSTANZA flap was elevated in a lateral to medial direction using electrocautery until the lateral edge of the rectus abdominis sheath was encountered. At this point, meticulous dissection continued using bipolar cautery, and the dominant perforators to this side, that were identified preoperatively on the MRA, were identified and preserved and kept in continuity with the flap. The anterior rectus fascia was then incised in a superior and inferior direction, and a small cuff of fascia, less than 1 cm, was kept in continuity with the perforators and freed from the surrounding tissue. The perforators were then dissected free of all surrounding tissue. The rectus muscle was atraumatically split in line with its longitudinal fibers, and the perforators were followed down through the rectus muscle to the lateral main branch of the deep inferior epigastric artery. Two perforators were kept in continuity with the flap and dissected in this technique. The main pedicle was then traced back to its origin in the groin where all small branches along the way were clipped and divided. at the groin the takeoff of the deep inferior epigastric artery and vein were identified. On the right side, there was noted to be one large deep inferior epigastric artery and two accompanying large venae comitantes. A single green clamp was applied to the pedicle, medium automatic clips were placed around the deep inferior epigastric artery and two accompanying veins. They were then divided. Simultaneously, at the left chest, exposure of the internal mammary artery and vein was performed. The mastectomy pocket was thoroughly irrigated, all points of bleeding were stopped with electrocautery. The pectoralis major muscle was then divided in line with its longitudinal fibers overlying the third rib. Gelpi retractors were placed for exposure. The third rib was scored using electrocautery, and then, the perichondrium surrounding the cartilaginous portion of the third rib was elevated using a periosteal elevator. Then, 2 cm of cartilaginous portion of the rib were removed using a rongeur, and under loupe magnification, the posterior perichondrium was elevated using microsurgical technique and bipolar cautery. Meticulous dissection was performed, and the internal mammary artery and vein were identified. The internal mammary artery and vein were freed of all surrounding tissue for a total length of 2 cm in order to allow microsurgical anastomoses. The operating microscope was brought into position on the left side. The right CONSTANZA flap was rotated 180 degrees. It was then placed at the right chest. It was sutured in position using 2-0 Vicryl sutures for temporary securing. The pedicle was placed in alignment with the internal mammary artery and vein. Under the operating microscope, the internal mammary vein had a single green clip applied proximally and a single green clip applied distally, and it was divided in the middle using straight microscissors. The vein lumen was irrigated and measured, and it was noted that a 2.5 -mm ballistics professor would fit well upon the internal mammary vein. The two veins of the flap pedicle were measured, and it was noted that 2.5 -mm ballistics professor would fit well upon each of these veins. The coupling device was loaded with a 2.5____ -mm ballistics professor, which was lowered into the operative field under the operating microscope. The antegrade pedicle vein was brought up and through the coupling device. It was everted over the coupling spikes. It was secured in position using the J-Hole. The lumen was irrigated with heparinized saline solution, and the ballistics professor was lowered adjacent to the antegrade portion of the internal mammary vein, the cut end of which was brought up and through the coupling device, everted over the coupling spikes, secured in position using the J-Hole. The lumen was then irrigated with heparinized saline solution. It was noted to be in good position and free of debris. The ballistics professor was closed, creating a secured couple anastomosis. The single green clamp was removed, and there was noted to be excellent flow across the anastomosis. Attention was then paid to the retrograde vein. The veins were measured and a 2 mm ballistics professor was selected. The second vein of the pedicle was then brought up and through a 2 mm ballistics professor. It was everted over the coupling spikes. It was secured in position using the J-Hole. The ballistics professor was then lowered adjacent to the retrograde internal mammary vein, the cut end of which was brought up and through the coupling device, everted over the coupling spikes, and secured in position using the J-Hole. The lumens were irrigated, noted to be free of debris and in good position. The ballistics professor was closed, and a secured couple anastomosis was created. The single green clamp was removed, and there was noted to be excellent flow across the anastomosis. Attention was then paid to the arterial anastomosis. The pedicle artery was placed in alignment with the internal mammary artery. The internal mammary artery had a single green clamp applied proximally, and a medium automatic green clip applied distally, and it was divided using a straight microscissor. The lumen was irrigated and noted to be free of debris and healthy in appearance. The arterial artery of the flap was placed in alignment with the internal mammary artery, and a hand-sewn anastomosis was performed. The 8-0 nylon was used in an interrupted fashion to perform the hand-sewn anastomosis. The single green clamp was removed, and there was noted to be strong healthier flow across the anastomosis with a very strong audible signal using the hand-held Doppler. At this point, an implantable Doppler was placed for monitoring of the flap postoperatively. Using the Daniels dissector, a small window was created around the pedicle artery. The cuff of the implantable Doppler was passed around this. It was then secured in position using MicroClips and hooked to the Doppler box where there was noted to be a strong bounding signal within the pedicle artery. This was left attached to the Doppler box and monitored throughout the entirety of the rest of the case, and there was excellent flow throughout the entire rest of this case. The operating microscope was removed. Flap was gently placed within the mastectomy pocket while monitoring the entire time. There was noted to be excellent shape to the flap and the skin was temporarily closed using skin staplers, and attention was paid to reconstruction of the contralateral side. At the left abdomen, the left CONSTANZA flap was elevated in a lateral to medial direction using electrocautery until the lateral edge of the rectus abdominis muscle was encountered. Then, dissection continued using bipolar cautery in a meticulous fashion using loupe magnification, and the two dominant perforators identified on the preoperative MRA were encountered and preserved. They were circumferentially freed. An incision was made in the anterior rectus fascia in a superior and inferior direction. A small cuff of fascia was kept adherent to the perforators, approximately 1 cm in size. The perforators were followed down into the rectus muscle freeing all small branches as necessary. The rectus muscle was atraumatically split using Gelpi retractors, and the perforators were traced down to the left deep inferior epigastric artery pedicle. The pedicle was then traced down to its origin in the groin, clipping and dividing all small branches as necessary. At the groin, there was noted to be one large artery and two large venae comitantes. These were clipped with the medium automatic clip non cdl driver and divided. Simultaneous to this dissection, at the right chest, exposure of the internal mammary artery and vein was performed. The mastectomy pocket was irrigated, all points of bleeding were stopped with electrocautery. The pectoralis major muscle was divided overlying the third rib in line with its longitudinal fibers. The underlying third rib was exposed. The perichondrium was scored using electrocautery and then freed using a periosteal elevator. Then, 2 cm of cartilaginous portion of the rib were resected using a large rongeur. Under loupe magnification, the posterior perichondrium was elevated and the internal mammary artery and vein were identified. All small branches were divided, and the internal mammary artery and vein were exposed for a length of 2 cm in order to allow microsurgical anastomosis. The left CONSTANZA flap was rotated 180 degrees. It was placed at the left chest and temporarily secured in position using 2-0 Vicryl sutures. The pedicle of the flap was placed in alignment with the internal mammary artery and vein. The operating microscope was brought into position. Under the operating microscope, attention was first paid to the venous anastomosis. The internal mammary vein had a clip applied distally and a single green clamp applied Proximally and distally. It was then divided using straight microscissors. The lumen was measured, and noted to be 3 mm. The pedicle vein was measured and noted to be 3 mm. A coupling device was loaded with a 3 _ -mm ballistics professor. It was lowered into the operative field under the operating microscope. The cut end of the pedicle vein was brought up and through the ballistics professor, everted over the coupling spike, secured in position using the J-Hole. The lumen was irrigated with heparinized saline solution, and it was noted to be in good potion and free of all debris. The ballistics professor was lowered adjacent to the internal mammary vein antegrade portion, the cut end of which was brought up and through the coupling device, everted over the coupling spikes, secured in position using the J-Hole, irrigated with heparinized saline solution, noted to be free of debris and in good position. The ballistics professor was closed, creating a secured couple anastomosis. The single green clamp was removed, and there was noted to be excellent flow across the venous anastomosis. Attention was then paid to the retrograde vein. The veins were measured and a 3 mm ballistics professor was selected. The second vein of the pedicle was then brought up and through a 3 mm ballistics professor. It was everted over the coupling spikes. It was secured in position using the J-Hole. The ballistics professor was then lowered adjacent to the retrograde internal mammary vein, the cut end of which was brought up and through the coupling device, everted over the coupling spikes, and secured in position using the J-Hole. The lumens were irrigated, noted to be free of debris and in good position. The ballistics professor was closed, and a secured couple anastomosis was created. The single green clamp was removed, and there was noted to be excellent flow across the anastomosis. Attention was then paid to the arterial anastomosis. The internal mammary artery had a medium clip applied distally, a single green clamp applied proximally. It was then divided using straight microscissors. The lumen was irrigated and noted to be free of debris and healthy in appearance. The pedicle artery was placed in alignment with the internal mammary artery, and a hand-sewn anastomosis was performed using an 8-0 nylon suture in an interrupted fashion. After completion of the hand-sewn anastomosis, the single green clamp was removed, and there was noted to be excellent strong pulsatile flow across the arterial anastomosis and a bounding pedicle. The pedicle was interrogated using the hand-held Doppler. There was noted to be strong, healthy pulsatile flow. For postoperative monitoring, the decision was made to place an implantable Doppler. A small window was created around the pedicle artery using the Daniels dissector. The Fibe[employer]io implantable Doppler cuff was passed around this and secured in position using MicroClips. The Doppler was hooked to the Doppler box, and it was noted to have a strong pulsatile signal. This was monitored throughout the entirety of the rest of the case. The operating microscope was then removed from the field. The flap was gently placed within the mastectomy cavity. The skin incisions were temporarily closed using skin staplers, and there was noted to be excellent shape and symmetry between the left and right breasts. Attention was then paid to closure of the left and right side. The left and right CONSTANZA flaps were appropriately shaped, recreating a beautiful natural lateral sweep to the breasts and a sharp inframammary fold. The skin paddle of the flaps was marked to replace the areola in a circular pattern. This was preserved. The rest of the skin along the flaps was deepithelialized using facelift scissors. The flaps were then inset in the appropriate position, and skin incisions were closed in multiple layers with 3-0 PDS as the deep layer and 4-0 Monocryl as the final running subcuticular closure. At the left and right side, prior to closure, an intercostalnerve block was performed using 0.25% Marcaine, 15 mL of 0.25% Marcaine was used on the left and 15 mL was used on the right, injecting small amounts of Marcaine adjacent to the intercostal nerve and rib space 2-7 in order to provide Postoperative pain relief. Prior to closing the incisions, a No. 19 Ignacio drain was placed on the left and right side and brought out through a small separate stab wound incision. Attention was then paid to closure of the abdomen. The anterior rectus fascia including both the anterior layer and posterior layer of anterior rectus fascia was reapproximated using 0 PDS sutures in a figure-of-8 fashion with one suture placed every centimeter. After reapproximating the fascia, this was then overrun with a 0 V-Loc PDS suture in multiple layers in order to plicate and strengthen the closure. In the epigastric area, there was noted to be a small amount of bulging and a central plication was performed using a 0 V-Loc suture in a running fashion. The patient had an excellent shape to the abdomen after closure of the fascia, and the skin and subcutaneous flap was advanced in the inferior direction. A low transverse incision was then closed in multiple layers with 0 PDS as the first layer and 3-0 V-Loc as the final running subcuticular closure. The umbilicus was brought up to and out through an inverted V-shaped incision and inset using 4-0 Monocryl. At the abdomen prior to closure, a transversus abdominis plane block was performed at the left and right side using 0.25% Marcaine, 15 mL of Marcaine was introduced through multiple small injections in the transversus abdominis plane on the left and right side in order to provide postoperative pain relief; 15 mL of Marcaine was used on the left side, and 15 mL of Marcaine was used on the right side. Also, at the abdomen, a left and right 19 ignacio abdominal drain was placed prior to closure. After closure of the incisions, sterile dressings were applied of 0.5-inch Steri-Strips to the incisions. The drains were placed to bulb suction,and the patient was awakened from anesthesia in stable condition. She tolerated the procedure well and there were no complications.
--- NOTE | 2019-09-21 19:52 | PN ---
Progress Note (short form) - Note Progress Note: patient very comfortable flaps viable with good color and flow signals LEANN's functioning well Standard monitoring.
[2019-09-21] MEDS ORDERED: MORPHINE SULFATE 2 MG/ML VIAL ONE (22:50)
[2019-09-21] MEDS ORDERED: MORPHINE SULFATE 2 MG/ML VIAL IVPUSH PRN (23:09)
[2019-09-21] MEDS ORDERED: ACETAMINOPHEN 1000 MG/100 ML VIAL (NON FORMULARY) IVPB ONE (23:34)
--- NOTE | 2019-09-21 23:38 | CONSULT ---
Consultation: REQUESTING PROVIDER: CONSULT REQUEST: We have been asked to medically evaluate this patient for ICU monitoring s/p CONSTANZA flap surgery. HISTORY OF PRESENT ILLNESS: 44 y/o/f with PMHx of invasive right breast ductal carcinoma s/p chemotherapy here POD#0 s/p bilateral breast reconstruction with CONSTANZA flap repair. Procesure completed without known complications. EBL of 300mL in surgery. Patient received 4000mL of LR. Patient is comfortable post-op with josué-hugger in place. Complains of abd pain and requesting more pain medication. Otherwise denies chest pain, SOB, fever, chills, N/V, headache. Past Medical Hx: GERD, invasive right breast ductal carcinoma s/p chemotherapy Past Surgical Hx: 2000, medical port for chemo 2017 Family Hx: father . Mother with hx of diabetes. Maternal aunt with history of stomach cancer. Paternal uncle with unknown cancer. Allergies: NKDA, citrus fruit Procedure Performed: 1. Bilateral breast reconstruction with CONSTANZA (deep inferior epigastric perforators) flap. 2. Bilateral ligation of SIEV (superficial inferior epigastric vein). 3. Left Ligation of superficial circumflex iliac vein 4. Bilateral Regla-prosthetic capsulectomy of breasts 5. Bilateral removal of in tact breast prostheses 6. Bilateral intercostal nerve block for postoperative pain relief. 7. Bilateral transversus abdominis plane block for postoperative pain relief. REVIEW OF SYSTEMS: as per HPI. PHYSICAL EXAMINATION Vital Signs - 24 hr 09/21/19 09/21/19 09/21/19 07:27 19:15 19:30 Temperature 98.6 F 99.8 F H Pulse Rate 87 116 H 112 H Respiratory 16 14 12 Rate Blood Pressure 137/75 126/83 118/78 O2 Sat by Pulse 99 100 100 Oximetry (%) 09/21/19 09/21/19 09/21/19 19:45 20:00 20:15 Temperature Pulse Rate 109 H 106 H 110 H Respiratory 11 10 11 Rate Blood Pressure 106/76 112/72 115/75 O2 Sat by Pulse 100 100 100 Oximetry (%) 09/21/19 09/21/19 09/21/19 20:30 20:45 21:00 Temperature Pulse Rate 108 H 112 H 118 H Respiratory 12 12 18 Rate Blood Pressure 123/76 124/72 114/65 O2 Sat by Pulse 100 100 100 Oximetry (%) 09/21/19 09/21/19 09/21/19 21:15 21:30 21:45 Temperature Pulse Rate 121 H 117 H 118 H Respiratory 18 10 16 Rate Blood Pressure 107/71 111/76 106/70 O2 Sat by Pulse 100 100 100 Oximetry (%) 09/21/19 09/21/19 22:00 22:05 Temperature 98.4 F Pulse Rate 113 H 110 H Respiratory 10 16 Rate Blood Pressure 102/65 102/65 O2 Sat by Pulse 100 100 Oximetry (%) GENERAL: Awake, alert, and fully oriented, in no acute distress. HEAD: Normal with no signs of trauma. EYES: PERRL, EOMI, no scleral icterus EARS, NOSE, THROAT: MMM NECK: trachea midline, supple LUNGS: Breath sounds equal, clear to auscultation bilaterally. No wheezes, and no crackles. No accessory muscle use. HEART: Tachycardic, no murmur auscultated ABDOMEN: mild diffuse tenderness to palpation. LEANN drains in place x4. soft, nondistended. Dressing clean / dry / intact EXTREMITIES: 2+ pulses, warm, well-perfused. No calf tenderness. No peripheral edema. NEUROLOGICAL: Normal speech. gait not observed. Sensation intact throughout. PSYCHIATRIC: Cooperative. Good eye contact. Appropriate mood and affect. SKIN: Warm, dry. surgical flaps warm, soft, well perfused. Dopplerable pulses on CONSTANZA flaps Laboratory Results - last 24 hr 09/21/19 09/21/19 06:52 07:30 Blood Type O POSITIVE O POSITIVE Antibody Screen Negative Active Medications Generic Name Dose Route Start Last Admin Trade Name Catrachoq PRN Reason Stop Dose Admin Acetaminophen 1,000 mg 09/21/19 23:34 Ofirmev Injection - IVPB 09/21/19 23:35 ONCE ONE Heparin Sodium (Porcine) 5,000 unit 09/22/19 08:00 Heparin - SQ Q12H BRETT Hydromorphone HCl 2 mg 09/21/19 19:26 Dilaudid Vial - IVPUSH 09/24/19 19:26 Q3H PRN PAIN LEVEL 7 - 10 Cefazolin Sodium 1 gm in 50 mls @ 100 mls/hr 09/22/19 02:00 Ancef 1 Gm Premixed Ivpb - IVPB Q8H-IV BRETT Potassium Chloride/Dextrose/Sod Cl 10 meq in 1,000 mls @ 150 mls/hr 09/21/19 19:30 D5-1/2ns+10 Meq Kcl - IV 09/22/19 19:29 ASDIR BRETT Metoclopramide HCl 10 mg 09/21/19 19:26 Reglan Injection - IVPB Q6H PRN NAUSEA AND/OR VOMITING Morphine Sulfate 2 mg 09/21/19 23:09 Morphine Sulfate IVPUSH 09/24/19 19:26 Q3H PRN PAIN LEVEL 1 - 3 Ondansetron HCl 4 mg 09/21/19 19:26 Zofran Injection IVPUSH Q6H PRN NAUSEA AND/OR VOMITING Prochlorperazine Maleate 25 mg 09/21/19 19:26 Compazine Suppository - [place] Q12H PRN NAUSEA AND/OR VOMITING Zolpidem Tartrate 5 mg 09/21/19 19:26 Ambien - PO 09/24/19 19:26 HS PRN INSOMNIA ASSESSMENT/PLAN: 44 y/o/f with PMHx of invasive right breast ductal carcinoma s/p chemotherapy here POD#0 s/p bilateral breast reconstruction with CONSTANZA flap repair. #Neuro - Zofran and Reglan PRN for nausea - Pain control as per surgery - AAOx3 #Cardio - Assess flaps - Q 1hr x 8 hours then - Q 2hr x 8 hours then - Q 4hr until discharge - Tachycardia likely 2/2 surgery, monitor #Pulm - Encourage incentive spirometer use - maintain SpO2 >92% #Renal - Received 4L LR intraop - monitor urine output - monitor kidney function #ID - Ancef x3 post-op - afebrile, monitor. f/u WBC #Prophylaxis - Heparin - TEDs, SCDs #FEN - D5 1/2NS @150mls/hr - Ice chips, advance diet as per surgery - monitor and replete lytes as needed #Disposition - Continue ICU monitoring, disposition as per surgery Visit type - Emergency Visit Emergency Visit: No - New Patient This patient is new to me today: Yes Date on this admission: 09/21/19 - Critical Care Critical Care patient: Yes Total Critical Care Time (in minutes): 36 Critical Care Statement: The care of this patient involved high complexity decision making to prevent further life threatening deterioration of the patient 's condition and/or to evaluate & treat vital organ system(s) failure or risk of failure. ATTENDING PHYSICIAN STATEMENT I saw and evaluated the patient. I reviewed the resident's note and discussed the case with the resident. I agree with the resident's findings and plan as documented. SUBJECTIVE: OBJECTIVE: ASSESSMENT AND PLAN:
[2019-09-22] MEDS ORDERED: ceFAZolin SODIUM 1 GM VIAL ONE ×3 (00:23→18:25)
[2019-09-22] MEDS ORDERED: DEXTROSE 5%-WATER - 50 ML IVPB ONE ×3 (00:23→18:25)
[2019-09-22] MEDS ORDERED: HEPARIN NA (PORCINE) 5,000 UNITS/ML 1ML VIAL SQ ONE (00:30)
[2019-09-22] MEDS: CEFAZOLIN 1 GM in DEXTROSE 5%-WATER - 50 ML IVPB SCH ×3 (01:33→18:26)
[2019-09-22] MEDS: METOCLOPRAMIDE HCL INJECTION 10 MG/2 ML VIAL IVPB PRN (02:07)
[2019-09-22] MEDS: HYDROmorphone HCl 2 MG/ML VIAL IVPUSH PRN ×6 (02:07→19:47)
[2019-09-22 04:30] LABS: ALBUMIN 2.4 g/dl (3.4-5.0); BILIRUBIN,TOTAL 0.4 mg/dL (0.2-1); CALCIUM 7.8 mg/dL (8.5-10.1); POTASSIUM 4.9 mmol/L (3.5-5.1); TOT PROT 5.2 g/dl (6.4-8.2)
[2019-09-22 05:17] LABS: HEMATOCRIT 29.2 % (32.4-45.2); HEMOGLOBIN 10.1 GM/dL (10.7-15.3); MCH 30.2 pg (25.7-33.7); MCHC 34.4 g/dl (32.0-36.0); MEAN CELL VOLUME 87.9 fl (80-96); MEAN PLT VOLUME 8.6 fl (7.5-11.1); PLATELET COUNT 276 K/MM3 (134-434); RBC 3.33 M/mm3 (3.60-5.2); RDW 14.1 % (11.6-15.6); WHITE BLOOD COUNT 8.8 K/mm3 (4.0-10.0)
[2019-09-22] MEDS: D5-1/2NS+10 MEQ KCL - 10 MEQ/1,000 ML INFUS.BAG IV SCH ×2 (05:52→18:36)
--- NOTE | 2019-09-22 07:21 | PN ---
Progress Note (short form) - Note Progress Note: POD 1 All tissues viable. Good flow signals and flap color No collections LEANN's all thin and serosanguinous and functioning well Afebrile, with tachycardia. Good color, Hb 10.1 UOP 1.5 L lat shift Allow further diuresis OOB to chair, DC josué doshi Advance diet
--- NOTE | 2019-09-22 07:33 | PN ---
Physical Exam: SUBJECTIVE: Patient seen and examined by the bedside. Complaining of some mild diffuse abdominal pain that started at 7AM, no pain at surgical site. OBJECTIVE: Vital Signs Period Temp Pulse Resp BP Sys/Msoher Pulse Ox Last 24 Hr 98.3 F-99.8 F 87-134 10-20 102-137/65-83 99-100 GENERAL: AOx3 HEAD: Normal with no signs of trauma. EYES: PERRL, EOMI, no scleral icterus EARS, NOSE, THROAT: MMM NECK: trachea midline, supple LUNGS: Breath sounds equal, clear to auscultation bilaterally. No wheezes, and no crackles. No accessory muscle use. HEART: Tachycardic, no murmur auscultated ABDOMEN: Diffuse abdominal pain but no tenderness on palpation. LEANN drains in place, thin serosanguineous fluid, dressing clean / dry / intact EXTREMITIES: 2+ pulses, warm, well-perfused. No calf tenderness. No peripheral edema. NEUROLOGICAL: Normal speech. gait not observed. Sensation intact throughout. PSYCHIATRIC: Cooperative. Good eye contact. Appropriate mood and affect. SKIN: Warm, dry. surgical flaps warm, soft, well perfused. Laboratory Results - last 24 hr 09/21/19 09/21/19 09/22/19 06:52 07:30 03:30 WBC 8.8 RBC 3.33 L Hgb 10.1 L Hct 29.2 L D MCV 87.9 MCH 30.2 MCHC 34.4 RDW 14.1 Plt Count 276 MPV 8.6 Sodium Potassium Chloride Carbon Dioxide Anion Gap BUN Creatinine Est GFR (CKD-EPI)AfAm Est GFR (CKD-EPI)NonAf Random Glucose Calcium Total Bilirubin AST ALT Alkaline Phosphatase Total Protein Albumin Blood Type O POSITIVE O POSITIVE Antibody Screen Negative 09/22/19 03:30 WBC RBC Hgb Hct MCV MCH MCHC RDW Plt Count MPV Sodium 138 Potassium 4.9 Chloride 107 Carbon Dioxide 25 Anion Gap 7 L BUN 27.0 H Creatinine 1.0 Est GFR (CKD-EPI)AfAm 80.47 Est GFR (CKD-EPI)NonAf 69.43 Random Glucose 167 H Calcium 7.8 L Total Bilirubin 0.4 AST 38 H ALT 27 Alkaline Phosphatase 101 Total Protein 5.2 L Albumin 2.4 L Blood Type Antibody Screen Active Medications Generic Name Dose Route Start Last Admin Trade Name Freq PRN Reason Stop Dose Admin Heparin Sodium (Porcine) 5,000 unit 09/22/19 08:00 Heparin - SQ Q12H BRETT Hydromorphone HCl 2 mg 09/21/19 19:26 09/22/19 05:51 Dilaudid Vial - IVPUSH 09/24/19 19:26 2 mg Q3H PRN Administration PAIN LEVEL 7 - 10 Cefazolin Sodium 1 gm/ 50 mls @ 100 mls/hr 09/22/19 02:00 09/22/19 01:33 Dextrose IVPB 100 mls/hr Q8H-IV BRETT Administration Potassium Chloride/Dextrose/Sod Cl 10 meq in 1,000 mls @ 150 mls/hr 09/21/19 19:30 09/22/19 05:52 D5-1/2ns+10 Meq Kcl - IV 09/22/19 19:29 150 mls/hr ASDIR BRETT Administration Lorazepam 0.5 mg 09/22/19 07:17 Ativan Injection - IM BID PRN ANXIETY Metoclopramide HCl 10 mg 09/21/19 19:26 09/22/19 02:07 Reglan Injection - IVPB 10 mg Q6H PRN Administration NAUSEA AND/OR VOMITING Morphine Sulfate 2 mg 09/21/19 23:09 Morphine Sulfate IVPUSH 09/24/19 19:26 Q3H PRN PAIN LEVEL 1 - 3 Ondansetron HCl 4 mg 09/21/19 19:26 Zofran Injection IVPUSH Q6H PRN NAUSEA AND/OR VOMITING Prochlorperazine Maleate 25 mg 09/21/19 19:26 Compazine Suppository - [place] Q12H PRN NAUSEA AND/OR VOMITING Zolpidem Tartrate 5 mg 09/21/19 19:26 Ambien - PO 09/24/19 19:26 HS PRN INSOMNIA ASSESSMENT/PLAN: 44F with PMH of invasive right breast ductal carcinoma s/p chemotherapy here POD #1 s/p bilateral breast reconstruction with CONSTANZA flap repair. EBL 300mL, received 4000mL of LR. Tachycardic overnight with HR between 100-130s. #Neuro - Morphine 2mg Q3H PRN, Dilaudid 2mg Q3H PRN, Zolpidem 5mg PO, Ativan 0.5mg IM PRN, - Compazine 25mg [place] PRN, Zofran and Reglan PRN for nausea - AOx3 #Cardio - Tachycardic overnight between 100-130s, EKG ordered, will r/o PE, 500cc bolus N/S given - Assess flaps - Q 4hr until discharge #Pulm - Tachycardic, will r/o PE, CXR, Doppler ordered - CXR clear - Encourage incentive spirometer use - maintain SpO2 >92% #Renal - Received 4L LR intraop - Cr 1.0 #Heme - Hg 10.2 #ID - WBC 8.8, afebrile - Ancef x3 post-op #Prophylaxis - Heparin 5000SQ - TEDs, SCDs #FEN - D5 1/2NS @150mls/hr, 500cc bolus N/S given in the morning - Regular diet #Disposition - Continue ICU monitoring, disposition as per surgery Visit type - Emergency Visit Emergency Visit: No - New Patient This patient is new to me today: Yes Date on this admission: 09/24/19 - Critical Care Critical Care patient: Yes Total Critical Care Time (in minutes): 38 Critical Care Statement: The care of this patient involved high complexity decision making to prevent further life threatening deterioration of the patient 's condition and/or to evaluate & treat vital organ system(s) failure or risk of failure. ATTENDING PHYSICIAN STATEMENT I saw and evaluated the patient. I reviewed the resident's note and discussed the case with the resident. I agree with the resident's findings and plan as documented. SUBJECTIVE: OBJECTIVE: ASSESSMENT AND PLAN:
[2019-09-22] MEDS: HEPARIN NA (PORCINE) 5,000 UNITS/ML 1ML VIAL SQ SCH ×2 (08:40→19:47)
[2019-09-22] MEDS: LORazepam 2 MG/ML SDV VIAL IM PRN ×2 (09:00→21:49)
[2019-09-22] MEDS ORDERED: SODIUM CHLORIDE 500 ML IV STA (09:55)
--- NOTE | 2019-09-22 12:04 | PN ---
Teaching Attending Note Name of Resident: Augustin Pugh ATTENDING PHYSICIAN STATEMENT I saw and evaluated the patient. I reviewed the resident's note and discussed the case with the resident. I agree with the resident's findings and plan as documented. SUBJECTIVE: Pt seen and examined in the ICU. Pain controlled. Sinus tachycardia. OBJECTIVE: Vital Signs Period Temp Pulse Resp BP Sys/Mosher Pulse Ox Last 24 Hr 98.3 F-99.8 F 105-134 10-20 102-126/65-83 100-100 Intake & Output 09/19/19 09/20/19 09/21/19 09/22/19 23:59 23:59 23:59 23:59 Intake Total 5300 2000 Output Total 1090.5 1560 Balance 4209.5 440 Weight 81.647 kg Gen: mildly tachypneic at rest Heart: tachycardic, regular Lung: decreased breath sounds at the bases Abd: soft Ext: no edema CBC, BMP 09/22/19 03:30 09/22/19 03:30 Active Medications Heparin Sodium (Porcine) (Heparin -) 5,000 unit SQ Q12H BRETT Last Admin: 09/22/19 08:40 Dose: 5,000 unit Hydromorphone HCl (Dilaudid Vial -) 2 mg IVPUSH Q3H PRN PRN Reason: PAIN LEVEL 7 - 10 Stop: 09/24/19 19:26 Last Admin: 09/22/19 08:50 Dose: 2 mg Cefazolin Sodium 1 gm/ (Dextrose) 50 mls @ 100 mls/hr IVPB Q8H-IV BRETT Last Admin: 09/22/19 09:22 Dose: 100 mls/hr Potassium Chloride/Dextrose/Sod Cl (D5-1/2ns+10 Meq Kcl -) 10 meq in 1,000 mls @ 150 mls/hr IV ASDIR BRETT Stop: 09/22/19 19:29 Last Admin: 09/22/19 05:52 Dose: 150 mls/hr Lorazepam (Ativan Injection -) 0.5 mg IM BID PRN PRN Reason: ANXIETY Last Admin: 09/22/19 09:00 Dose: 0.5 mg Metoclopramide HCl (Reglan Injection -) 10 mg IVPB Q6H PRN PRN Reason: NAUSEA AND/OR VOMITING Last Admin: 09/22/19 02:07 Dose: 10 mg Morphine Sulfate (Morphine Sulfate) 2 mg IVPUSH Q3H PRN PRN Reason: PAIN LEVEL 1 - 3 Stop: 09/24/19 19:26 Ondansetron HCl (Zofran Injection) 4 mg IVPUSH Q6H PRN PRN Reason: NAUSEA AND/OR VOMITING Prochlorperazine Maleate (Compazine Suppository -) 25 mg [place] Q12H PRN PRN Reason: NAUSEA AND/OR VOMITING Zolpidem Tartrate (Ambien -) 5 mg PO HS PRN PRN Reason: INSOMNIA Stop: 09/24/19 19:26 ASSESSMENT AND PLAN: h/o Breast Ca s/p Bilateral breast reconstruction with CONSTANZA flap Anemia Sinus Tachycardia - pain control - incentive spirometry - flap monitoring - monitor drain output - monitor H/H - IVF - PO as tolerated - DVT prophylaxis - continue ICU monitoring
--- NOTE | 2019-09-22 14:25 | EKG ---
Test Reason : Blood Pressure : / mmHG Vent. Rate : 144 BPM Atrial Rate : 144 BPM P-R Int : 136 ms QRS Dur : 070 ms QT Int : 260 ms P-R-T Axes : 042 052 016 degrees QTc Int : 402 ms SINUS TACHYCARDIA OTHERWISE NORMAL ECG NO PREVIOUS ECGS AVAILABLE PATIENT SITTING IN CHAIR DURING EKG DUE TO CHEST BANDAGES Confirmed by INGRID OWENS MD ([id number]) on 09/22/2019 2:24:52 PM Referred By: Amanda APONTE Confirmed By:INGRID OWENS MD
[2019-09-22 15:14] LABS: HEMATOCRIT 30.2 % (32.4-45.2); HEMOGLOBIN 10.1 GM/dL (10.7-15.3); MCH 29.8 pg (25.7-33.7); MCHC 33.5 g/dl (32.0-36.0); MEAN CELL VOLUME 88.9 fl (80-96); PLATELET COUNT 254 K/MM3 (134-434); RDW 14.5 % (11.6-15.6); WHITE BLOOD COUNT 13.3 K/mm3 (4.0-10.0)
[2019-09-22] MEDS: PANTOPRAZOLE 40 MG TABLET (FP) PO SCH (15:33)
--- NOTE | 2019-09-22 21:28 | PN ---
Progress Note (short form) - Note Progress Note: Patient remains tacycardic CTA negative for PE. Positive for atelectasis and gastric and esophogeal fluid distension Flaps viable LEANN's thin and functioning No collections HCT stable Plan for NG suction of the stomach NPO PRN ativan for anxiety
[2019-09-22] MEDS: LACTATED RINGERS SOLUTION 1,000 ML/1,000 ML INFUS.BAG IV SCH (21:49)
--- NOTE | 2019-09-22 23:56 | PN ---
Progress Note (short form) - Note Progress Note: Patient remains tachycardic in 130s, CTA ordered to r/o PE CTA shows gastric distension but no evidence of PE, NG placed for temporary drainage as per Dr. Pierre Approximately 1300cc drained by slow suction over 2 hours, HR now in 100s NG tube removed, patient reports relief of symptoms
[2019-09-23] MEDS ORDERED: chlorproMAZINE HCL 25 MG/1 ML AMP IVPB ONE (00:55)
[2019-09-23] MEDS ORDERED: ceFAZolin SODIUM 1 GM VIAL ONE ×3 (01:08→17:10)
[2019-09-23] MEDS ORDERED: DEXTROSE 5%-WATER - 50 ML IVPB ONE ×3 (01:08→17:10)
[2019-09-23] MEDS: CEFAZOLIN 1 GM in DEXTROSE 5%-WATER - 50 ML IVPB SCH ×3 (01:12→17:15)
[2019-09-23] MEDS: HYDROmorphone HCl 2 MG/ML VIAL IVPUSH PRN ×4 (02:22→17:14)
[2019-09-23] MEDS ORDERED: METOPROLOL TARTRATE 5 MG/5 ML VIAL IVPUSH ONE (02:41)
[2019-09-23 07:44] LABS: BASO % 0.4 % (0-2.0); HEMATOCRIT 22.7 % (32.4-45.2); MCH 30.8 pg (25.7-33.7); MCHC 35.3 g/dl (32.0-36.0); MEAN CELL VOLUME 87.3 fl (80-96); MEAN PLT VOLUME 8.3 fl (7.5-11.1); MONO % 8.1 % (3.8-10.2); NEUT % 77.5 % (42.8-82.8); PLATELET COUNT 211 K/MM3 (134-434); RDW 13.9 % (11.6-15.6); WHITE BLOOD COUNT 8.6 K/mm3 (4.0-10.0)
[2019-09-23 08:15] LABS: ALBUMIN 2.2 g/dl (3.4-5.0); BILIRUBIN,TOTAL 0.4 mg/dL (0.2-1); BLOOD UREA NITROGEN 23.3 mg/dL (7-18); CALCIUM 7.7 mg/dL (8.5-10.1); CREATININE 0.5 mg/dL (0.55-1.3); POTASSIUM 4.9 mmol/L (3.5-5.1)
--- NOTE | 2019-09-23 08:26 | PN ---
Physical Exam: SUBJECTIVE: Patient seen and examined on ICU AM rounds. Without focal complaint. States she is tired because she didn't sleep well overnight. Denies CP/SOB/N/V/F/C/ abdominal pain/surgical site pain. Drains with small volume thin serosang fluid drainage. Interval CTA without PE, demonstrated some GI fluid, NG tube places, 1.3L drained to slow suction over 2 hours, symptoms resolved. Patient remains persistently tachycardic, afebrile, without symptoms. Denies flatus or BM. OBJECTIVE: Vital Signs Period Temp Pulse Resp BP Sys/Mosher Pulse Ox Last 24 Hr 97.4 F-98.6 F 119-169 9-19 92-132/56-98 100-100 GENERAL: AOx3, no acute distress, awoke from sleep. HEAD: Normal with no signs of trauma, EOMI, no scleral icterus, MMM, trachea midline. LUNGS: Breath sounds equal, clear to auscultation bilaterally. No wheezes, and no crackles. No accessory muscle use. HEART: Tachycardic, nl s1/s2, no murmur auscultated ABDOMEN: Diffuse abdominal pain but no tenderness on palpation. LEANN drains in place, small volume thin serosanguineous fluid, dressing c/d/i EXTREMITIES: 2+ pulses, warm, well-perfused. No calf tenderness. No peripheral edema. NEUROLOGICAL: Normal speech, gait not observed, sensation intact throughout. PSYCHIATRIC: Cooperative. Good eye contact. Appropriate mood and affect. SKIN: Warm, dry, surgical flaps warm, soft, well perfused, non-tender. Laboratory Results - last 24 hr 09/22/19 09/22/19 09/23/19 14:30 18:20 06:50 WBC 13.3 H 8.6 RBC 3.40 L 2.60 L Hgb 10.1 L 8.0 L Hct 30.2 L 22.7 L D MCV 88.9 87.3 MCH 29.8 30.8 MCHC 33.5 35.3 RDW 14.5 13.9 Plt Count 254 211 MPV 9.0 8.3 Absolute Neuts (auto) 6.7 Neutrophils % 77.5 D Lymphocytes % 14.0 D Monocytes % 8.1 Eosinophils % 0.0 D Basophils % 0.4 Nucleated RBC % 0 Sodium Potassium Chloride Carbon Dioxide Anion Gap BUN Creatinine Est GFR (CKD-EPI)AfAm Est GFR (CKD-EPI)NonAf Random Glucose Calcium Total Bilirubin AST ALT Alkaline Phosphatase Total Protein Albumin Urine HCG, Qual Negative 09/23/19 06:50 WBC RBC Hgb Hct MCV MCH MCHC RDW Plt Count MPV Absolute Neuts (auto) Neutrophils % Lymphocytes % Monocytes % Eosinophils % Basophils % Nucleated RBC % Sodium 132 L Potassium 4.9 Chloride 99 Carbon Dioxide 29 Anion Gap 3 L BUN 23.3 H Creatinine 0.5 L Est GFR (CKD-EPI)AfAm 138.36 Est GFR (CKD-EPI)NonAf 119.38 Random Glucose 173 H Calcium 7.7 L Total Bilirubin 0.4 AST 31 ALT 20 Alkaline Phosphatase 86 Total Protein 5.0 L Albumin 2.2 L Urine HCG, Qual Active Medications Generic Name Dose Route Start Last Admin Trade Name Freq PRN Reason Stop Dose Admin Heparin Sodium (Porcine) 5,000 unit 09/22/19 08:00 09/22/19 19:47 Heparin - SQ 5,000 unit Q12H BRETT Administration Hydromorphone HCl 2 mg 09/21/19 19:26 09/23/19 06:47 Dilaudid Vial - IVPUSH 09/24/19 19:26 2 mg Q3H PRN Administration PAIN LEVEL 7 - 10 Cefazolin Sodium 1 gm/ 50 mls @ 100 mls/hr 09/22/19 02:00 09/23/19 01:12 Dextrose IVPB 100 mls/hr Q8H-IV BRETT Administration Lactated Ringer's 1,000 ml in 1,000 mls @ 100 mls/hr 09/22/19 21:45 09/22/19 21:49 Lactated Ringers Solution IV 100 mls/hr ASDIR BRETT Administration Lorazepam 0.5 mg 09/22/19 07:17 09/22/19 21:49 Ativan Injection - IM 0.5 mg BID PRN Administration ANXIETY Metoclopramide HCl 10 mg 09/21/19 19:26 09/22/19 02:07 Reglan Injection - IVPB 10 mg Q6H PRN Administration NAUSEA AND/OR VOMITING Morphine Sulfate 2 mg 09/21/19 23:09 Morphine Sulfate IVPUSH 09/24/19 19:26 Q3H PRN PAIN LEVEL 1 - 3 Ondansetron HCl 4 mg 09/21/19 19:26 Zofran Injection IVPUSH Q6H PRN NAUSEA AND/OR VOMITING Pantoprazole Sodium 40 mg 09/22/19 15:15 09/22/19 15:33 Protonix - PO 40 mg DAILY BRETT Administration Prochlorperazine Maleate 25 mg 09/21/19 19:26 Compazine Suppository - [place] Q12H PRN NAUSEA AND/OR VOMITING Zolpidem Tartrate 5 mg 09/21/19 19:26 Ambien - PO 09/24/19 19:26 HS PRN INSOMNIA ASSESSMENT/PLAN: 44F with PMH of invasive right breast ductal carcinoma s/p chemotherapy here POD #1 s/p bilateral breast reconstruction with CONSTANZA flap repair. EBL 300mL, received 4000mL of LR. Course c/b unexplained sinus tachycardia, r/o PE, no infectious signs, clinically does not appear anxious, 2U PRBCs ordered trending H&H. #Neuro - Morphine 2mg Q3H PRN, Dilaudid 2mg Q3H PRN, Zolpidem 5mg PO, Ativan 0.5mg IM PRN - AOx3 baseline #Cardio - Remained sinus tachycardic overnight between 100-160s - Given 5 lopressor at 3:30AM - Assess flaps q4hr until discharge #Pulm - Tachycardic, CTA without sign of PE, Doppler negative, CXR clear - Encourage incentive spirometer use - Maintain SpO2 >92% #Renal - Received 4L LR intraop - Cr 1.0 > 0.5 - Good UOP, monitor I&Os #Heme - H&H 10.1/30.2 > 8.0/22.7 -2U PRBCs ordered per surgery #ID - WBC 8.6, afebrile - S/p Ancef x3 post-op #GI - Compazine 25mg [place] PRN, Zofran and Reglan PRN for nausea #Prophylaxis - Heparin SQ - TEDs, SCDs #FEN - D5 1/2NS @150mls/hr, 500cc bolus N/S given in the morning - NPO given distention and NG tube decompression, will advance per surgery #Disposition - Continue ICU monitoring - Disposition as per surgery Visit type - Emergency Visit Emergency Visit: No - New Patient This patient is new to me today: Yes Date on this admission: 09/23/19 - Critical Care Critical Care patient: Yes Total Critical Care Time (in minutes): 36 Critical Care Statement: The care of this patient involved high complexity decision making to prevent further life threatening deterioration of the patient 's condition and/or to evaluate & treat vital organ system(s) failure or risk of failure. ATTENDING PHYSICIAN STATEMENT I saw and evaluated the patient. I reviewed the resident's note and discussed the case with the resident. I agree with the resident's findings and plan as documented. SUBJECTIVE: OBJECTIVE: ASSESSMENT AND PLAN:
[2019-09-23] MEDS: HEPARIN NA (PORCINE) 5,000 UNITS/ML 1ML VIAL SQ SCH ×2 (08:50→21:38)
[2019-09-23] MEDS: PANTOPRAZOLE 40 MG TABLET (FP) PO SCH (09:36)
--- NOTE | 2019-09-23 09:41 | PN ---
Progress Note (short form) - Note Progress Note: All tissues viable NG with large output Keep NPO HCT 22. No collection or active bleed. She remains tachycardic so will plan 2 u transfusion. Continue OOB ambulate and encourage IS.
--- NOTE | 2019-09-23 12:02 | PN ---
Teaching Attending Note Name of Resident: Juan Ramon Shukla ATTENDING PHYSICIAN STATEMENT I saw and evaluated the patient. I reviewed the resident's note and discussed the case with the resident. I agree with the resident's findings and plan as documented. SUBJECTIVE: Pt seen and examined in the ICU. CTA negative for PE but did show gastric and esophageal distention s/p NGT decompression. Now feels better. Denies shortness of breath. Pain controlled. OBJECTIVE: Vital Signs Period Temp Pulse Resp BP Sys/Mosher Pulse Ox Last 24 Hr 97.4 F-98.6 F 119-169 8- 92-132/56-98 94-100 Intake & Output 09/20/19 09/21/19 09/22/19 09/23/19 23:59 23:59 23:59 23:59 Intake Total 5300 4580 900 Output Total 1090.5 2520 314 Balance 4209.5 2060 586 Weight 81.647 kg Gen: less tachypneic Heart: tachycardic, regular Lung: decreased breath sounds at the bases Abd: soft, nontender Ext: no edema Drains serosanguinous CBC, BMP 09/23/19 06:50 09/23/19 06:50 Active Medications Heparin Sodium (Porcine) (Heparin -) 5,000 unit SQ Q12H BRETT Last Admin: 09/23/19 08:50 Dose: 5,000 unit Hydromorphone HCl (Dilaudid Vial -) 2 mg IVPUSH Q3H PRN PRN Reason: PAIN LEVEL 7 - 10 Stop: 09/24/19 19:26 Last Admin: 09/23/19 06:47 Dose: 2 mg Cefazolin Sodium 1 gm/ (Dextrose) 50 mls @ 100 mls/hr IVPB Q8H-IV BRETT Last Admin: 09/23/19 09:36 Dose: 100 mls/hr Lactated Ringer's (Lactated Ringers Solution) 1,000 ml in 1,000 mls @ 100 mls/ hr IV ASDIR BRETT Last Admin: 09/22/19 21:49 Dose: 100 mls/hr Lorazepam (Ativan Injection -) 0.5 mg IM BID PRN PRN Reason: ANXIETY Last Admin: 09/22/19 21:49 Dose: 0.5 mg Metoclopramide HCl (Reglan Injection -) 10 mg IVPB Q6H PRN PRN Reason: NAUSEA AND/OR VOMITING Last Admin: 09/22/19 02:07 Dose: 10 mg Morphine Sulfate (Morphine Sulfate) 2 mg IVPUSH Q3H PRN PRN Reason: PAIN LEVEL 1 - 3 Stop: 09/24/19 19:26 Ondansetron HCl (Zofran Injection) 4 mg IVPUSH Q6H PRN PRN Reason: NAUSEA AND/OR VOMITING Pantoprazole Sodium (Protonix -) 40 mg PO DAILY BRETT Last Admin: 09/23/19 09:36 Dose: 40 mg Prochlorperazine Maleate (Compazine Suppository -) 25 mg [place] Q12H PRN PRN Reason: NAUSEA AND/OR VOMITING Zolpidem Tartrate (Ambien -) 5 mg PO HS PRN PRN Reason: INSOMNIA Stop: 09/24/19 19:26 ASSESSMENT AND PLAN: h/o Breast Ca s/p Bilateral breast reconstruction with CONSTANZA flap Acute Blood Loss Anemia Sinus Tachycardia - pain control - incentive spirometry - flap monitoring - monitor drain outputs - for PRBC transfusions - monitor H/H - IVF - PO as tolerated - DVT prophylaxis - continue ICU monitoring
[2019-09-23] MEDS ORDERED: PROCHLORPERAZINE INJECTION 10 MG/2 ML VIAL IVPB ONE (12:21)
[2019-09-23 21:10] LABS: BASO % 0.5 % (0-2.0); EOS % 0.3 % (0-4.5); HEMATOCRIT 30.8 % (32.4-45.2); HEMOGLOBIN 10.6 GM/dL (10.7-15.3); LYMPH % 21.7 % (8-40); MCH 30.4 pg (25.7-33.7); MCHC 34.5 g/dl (32.0-36.0); MEAN CELL VOLUME 88.1 fl (80-96); MEAN PLT VOLUME 8.2 fl (7.5-11.1); MONO % 7.8 % (3.8-10.2); NEUT % 69.7 % (42.8-82.8); PLATELET COUNT 187 K/MM3 (134-434); RDW 13.7 % (11.6-15.6); WHITE BLOOD COUNT 9.4 K/mm3 (4.0-10.0)
[2019-09-23] MEDS ORDERED: ACETAMINOPHEN 1000 MG/100 ML VIAL (NON FORMULARY) IVPB ONE (21:15)
[2019-09-23] MEDS: METOCLOPRAMIDE HCL INJECTION 10 MG/2 ML VIAL IVPB PRN (21:38)
[2019-09-23] MEDS: LACTATED RINGERS SOLUTION 1,000 ML/1,000 ML INFUS.BAG IV SCH (21:40)
[2019-09-24] MEDS ORDERED: ceFAZolin SODIUM 1 GM VIAL ONE ×3 (01:35→16:54)
[2019-09-24] MEDS ORDERED: DEXTROSE 5%-WATER - 50 ML IVPB ONE ×3 (01:35→16:54)
[2019-09-24] MEDS: CEFAZOLIN 1 GM in DEXTROSE 5%-WATER - 50 ML IVPB SCH ×3 (01:42→18:21)
[2019-09-24] MEDS: LORazepam 2 MG/ML SDV VIAL IM PRN (01:43)
[2019-09-24] MEDS ORDERED: ACETAMINOPHEN 1000 MG/100 ML VIAL (NON FORMULARY) IVPB ONE ×3 (01:44→19:31)
[2019-09-24] MEDS: METOCLOPRAMIDE HCL INJECTION 10 MG/2 ML VIAL IVPB PRN ×3 (05:00→18:23)
[2019-09-24 06:43] LABS: BASO % 0.3 % (0-2.0); EOS % 0.9 % (0-4.5); HEMATOCRIT 24.6 % (32.4-45.2); HEMOGLOBIN 8.7 GM/dL (10.7-15.3); LYMPH % 22.6 % (8-40); MCH 30.5 pg (25.7-33.7); MCHC 35.3 g/dl (32.0-36.0); MEAN CELL VOLUME 86.4 fl (80-96); MEAN PLT VOLUME 8.1 fl (7.5-11.1); MONO % 7.3 % (3.8-10.2); NEUT % 68.9 % (42.8-82.8); PLATELET COUNT 171 K/MM3 (134-434); RBC 2.85 M/mm3 (3.60-5.2); RDW 13.1 % (11.6-15.6); WHITE BLOOD COUNT 5.3 K/mm3 (4.0-10.0)
--- NOTE | 2019-09-24 07:12 | PN ---
Physical Exam: SUBJECTIVE: Patient seen and examined by the bedside. Complaining of some mild diffuse abdominal pain (responsive to Ofiramev overnight), no pain at surgical site. OBJECTIVE: Vital Signs Period Temp Pulse Resp BP Sys/Mosher Pulse Ox Last 24 Hr 98.2 F-98.9 F 104-137 8-13 109-134/58-81 94-100 GENERAL: AOx3 HEAD: Normal with no signs of trauma. EYES: PERRL, EOMI, no scleral icterus EARS, NOSE, THROAT: MMM NECK: trachea midline, supple LUNGS: Breath sounds equal, clear to auscultation bilaterally. No wheezes, and no crackles. No accessory muscle use. HEART: Tachycardic, no murmur auscultated ABDOMEN: Diffuse abdominal pain but no tenderness on palpation. LEANN drains in place, thin serosanguineous fluid, dressing clean / dry / intact EXTREMITIES: 2+ pulses, warm, well-perfused. No calf tenderness. No peripheral edema. NEUROLOGICAL: Normal speech. gait not observed. Sensation intact throughout. PSYCHIATRIC: Cooperative. Good eye contact. Appropriate mood and affect. SKIN: Warm, dry. surgical flaps warm, soft, well perfused. Laboratory Results - last 24 hr 09/21/19 09/23/19 09/23/19 06:52 06:50 06:50 WBC 8.6 RBC 2.60 L Hgb 8.0 L Hct 22.7 L D MCV 87.3 MCH 30.8 MCHC 35.3 RDW 13.9 Plt Count 211 MPV 8.3 Absolute Neuts (auto) 6.7 Neutrophils % 77.5 D Lymphocytes % 14.0 D Monocytes % 8.1 Eosinophils % 0.0 D Basophils % 0.4 Nucleated RBC % 0 Sodium 132 L Potassium 4.9 Chloride 99 Carbon Dioxide 29 Anion Gap 3 L BUN 23.3 H Creatinine 0.5 L Est GFR (CKD-EPI)AfAm 138.36 Est GFR (CKD-EPI)NonAf 119.38 Random Glucose 173 H Calcium 7.7 L Total Bilirubin 0.4 AST 31 ALT 20 Alkaline Phosphatase 86 Total Protein 5.0 L Albumin 2.2 L Blood Type O POSITIVE Antibody Screen Negative Crossmatch See Detail 09/23/19 09/24/19 20:30 06:10 WBC 9.4 5.3 RBC 3.50 L 2.85 L Hgb 10.6 L 8.7 L Hct 30.8 L D 24.6 L D MCV 88.1 86.4 MCH 30.4 30.5 MCHC 34.5 35.3 RDW 13.7 13.1 Plt Count 187 171 MPV 8.2 8.1 Absolute Neuts (auto) 6.6 3.7 Neutrophils % 69.7 68.9 Lymphocytes % 21.7 D 22.6 Monocytes % 7.8 7.3 Eosinophils % 0.3 D 0.9 D Basophils % 0.5 0.3 Nucleated RBC % 0 0 Sodium Potassium Chloride Carbon Dioxide Anion Gap BUN Creatinine Est GFR (CKD-EPI)AfAm Est GFR (CKD-EPI)NonAf Random Glucose Calcium Total Bilirubin AST ALT Alkaline Phosphatase Total Protein Albumin Blood Type Antibody Screen Crossmatch Active Medications Generic Name Dose Route Start Last Admin Trade Name Freq PRN Reason Stop Dose Admin Heparin Sodium (Porcine) 5,000 unit 09/22/19 08:00 09/23/19 21:38 Heparin - SQ 5,000 unit Q12H BRETT Administration Hydromorphone HCl 2 mg 09/21/19 19:26 09/23/19 17:14 Dilaudid Vial - IVPUSH 09/24/19 19:26 2 mg Q3H PRN Administration PAIN LEVEL 7 - 10 Cefazolin Sodium 1 gm/ 50 mls @ 100 mls/hr 09/22/19 02:00 09/24/19 01:42 Dextrose IVPB 100 mls/hr Q8H-IV BRETT Administration Lactated Ringer's 1,000 ml in 1,000 mls @ 100 mls/hr 09/22/19 21:45 09/23/19 21:40 Lactated Ringers Solution IV 100 mls/hr ASDIR BRETT Administration Lorazepam 0.5 mg 09/22/19 07:17 09/24/19 01:43 Ativan Injection - IM 0.5 mg BID PRN Administration ANXIETY Metoclopramide HCl 10 mg 09/21/19 19:26 09/24/19 05:00 Reglan Injection - IVPB 10 mg Q6H PRN Administration NAUSEA AND/OR VOMITING Morphine Sulfate 2 mg 09/21/19 23:09 Morphine Sulfate IVPUSH 09/24/19 19:26 Q3H PRN PAIN LEVEL 1 - 3 Ondansetron HCl 4 mg 12/10/19 19:26 Zofran Injection IVPUSH Q6H PRN NAUSEA AND/OR VOMITING Pantoprazole Sodium 40 mg 09/22/19 15:15 09/23/19 09:36 Protonix - PO 40 mg DAILY BRETT Administration Zolpidem Tartrate 5 mg 09/21/19 19:26 Ambien - PO 09/24/19 19:26 HS PRN INSOMNIA ASSESSMENT/PLAN: 44F with PMH of invasive right breast ductal carcinoma s/p chemotherapy. POD#3 ( 09/21) s/p bilateral breast reconstruction with CONSTANZA flap repair. EBL 300mL, received 4000mL of LR. Course c/b unexplained sinus tachycardia, r/o PE, no infectious signs. Received 2x PRBC yesterday, but Hg dropped from 10.6 to 8.7 overnight. #Neuro - Ofiramev, Morphine 2mg Q3H PRN, Dilaudid 2mg Q3H PRN, Zolpidem 5mg PO, Ativan 0.5mg IM PRN - AOx3 baseline #Cardio - Rate overnight 100-120 - Assess flaps q4hr until discharge #Pulm - CT AP (09/24): Extensive atelectasis B/L with small pleural effusions - CTA (09/22): without sign of PE, Doppler negative, CXR clear - Encourage incentive spirometer use #GI - GI bleed unlikely despite Hg drop, will r/o by performing CT AP and FOBT - CT AP (09/24): No acute pathology, no hematoma/abscess, GB slightly distended but clear, no abdominal/peritoneal fluid collections, masses - FOBT pending - 1300cc drained via temporary NG on 09/23 - Compazine 25mg AK PRN, Zofran and Reglan PRN for nausea #Renal - Received 4L LR intraop - Cr 1.0 > 0.5 - Good UOP, monitor I&Os #Heme - Hg 10.1 -> 8.0 -> (2RBC)-> 10.6 -> 8.7 - Repeat afternoon CBC ordered - 2U PRBCs ordered per surgery #ID - WBC 5.3, afebrile - Cefazolin - S/p Ancef x3 post-op #Prophylaxis - Heparin SQ - TEDs, SCDs #FEN - LR @ 100 - Clearliquid diet started since CT AP is clear #Disposition - Continue ICU monitoring - Disposition as per surgery Visit type - Emergency Visit Emergency Visit: No - New Patient This patient is new to me today: No - Critical Care Critical Care patient: Yes Total Critical Care Time (in minutes): 38 Critical Care Statement: The care of this patient involved high complexity decision making to prevent further life threatening deterioration of the patient 's condition and/or to evaluate & treat vital organ system(s) failure or risk of failure. ATTENDING PHYSICIAN STATEMENT I saw and evaluated the patient. I reviewed the resident's note and discussed the case with the resident. I agree with the resident's findings and plan as documented. SUBJECTIVE: OBJECTIVE: ASSESSMENT AND PLAN:
[2019-09-24 07:23] LABS: ALBUMIN 1.9 g/dl (3.4-5.0); BILIRUBIN,TOTAL 0.6 mg/dL (0.2-1); BLOOD UREA NITROGEN 9.9 mg/dL (7-18); CALCIUM 7.5 mg/dL (8.5-10.1); CREATININE 0.4 mg/dL (0.55-1.3); MAGNESIUM 2.2 mg/dL (1.8-2.4); PHOSPHOROUS 2.3 mg/dL (2.5-4.9); POTASSIUM 3.8 mmol/L (3.5-5.1); TOT PROT 4.5 g/dl (6.4-8.2)
[2019-09-24] MEDS: HYDROmorphone HCl 2 MG/ML VIAL IVPUSH PRN (08:00)
[2019-09-24] MEDS: HEPARIN NA (PORCINE) 5,000 UNITS/ML 1ML VIAL SQ SCH ×2 (08:00→19:42)
--- NOTE | 2019-09-24 09:55 | PN ---
Teaching Attending Note Name of Resident: Augustin Pugh ATTENDING PHYSICIAN STATEMENT I saw and evaluated the patient. I reviewed the resident's note and discussed the case with the resident. I agree with the resident's findings and plan as documented. SUBJECTIVE: Patient seen and examined in the ICU. Awake and alert. Reports pain and breathing is a little better. Noted drift in H&H. No occult bleeding noted overnight. OBJECTIVE: Intake & Output 09/21/19 09/22/19 09/23/19 09/24/19 23:59 23:59 23:59 23:59 Intake Total 5300 4580 2500 1650 Output Total 1090.5 2520 1544 1945 Balance 4209.5 2060 956 -295 Weight 180 lb Last Vital Signs Temp Pulse Resp BP Pulse Ox 98.9 F 104 H 13 109/70 95 09/24/19 06:00 09/24/19 06:00 09/24/19 06:00 09/24/19 06:00 09/24/19 07:37 Active Medications Heparin Sodium (Porcine) (Heparin -) 5,000 unit SQ Q12H BRETT Last Admin: 09/23/19 21:38 Dose: 5,000 unit Hydromorphone HCl (Dilaudid Vial -) 2 mg IVPUSH Q3H PRN PRN Reason: PAIN LEVEL 7 - 10 Stop: 09/24/19 19:26 Last Admin: 09/23/19 17:14 Dose: 2 mg Cefazolin Sodium 1 gm/ (Dextrose) 50 mls @ 100 mls/hr IVPB Q8H-IV BRETT Last Admin: 09/24/19 01:42 Dose: 100 mls/hr Lactated Ringer's (Lactated Ringers Solution) 1,000 ml in 1,000 mls @ 100 mls/ hr IV ASDIR BRETT Last Admin: 09/23/19 21:40 Dose: 100 mls/hr Lorazepam (Ativan Injection -) 0.5 mg IM BID PRN PRN Reason: ANXIETY Last Admin: 09/24/19 01:43 Dose: 0.5 mg Metoclopramide HCl (Reglan Injection -) 10 mg IVPB Q6H PRN PRN Reason: NAUSEA AND/OR VOMITING Last Admin: 09/24/19 05:00 Dose: 10 mg Morphine Sulfate (Morphine Sulfate) 2 mg IVPUSH Q3H PRN PRN Reason: PAIN LEVEL 1 - 3 Stop: 09/24/19 19:26 Ondansetron HCl (Zofran Injection) 4 mg IVPUSH Q6H PRN PRN Reason: NAUSEA AND/OR VOMITING Pantoprazole Sodium (Protonix -) 40 mg PO DAILY BRETT Last Admin: 09/23/19 09:36 Dose: 40 mg Zolpidem Tartrate (Ambien -) 5 mg PO HS PRN PRN Reason: INSOMNIA Stop: 09/24/19 19:26 Gen: Awake and alert, NAD Heart: tachycardic, regular Lung: decreased breath sounds at the bases Abd: soft, nontender, (+) BS Ext: no edema Drains serosanguinous Laboratory Results - last 24 hr 09/21/19 09/23/19 09/24/19 06:52 20:30 06:10 WBC 9.4 5.3 RBC 3.50 L 2.85 L Hgb 10.6 L 8.7 L Hct 30.8 L D 24.6 L D MCV 88.1 86.4 MCH 30.4 30.5 MCHC 34.5 35.3 RDW 13.7 13.1 Plt Count 187 171 MPV 8.2 8.1 Absolute Neuts (auto) 6.6 3.7 Neutrophils % 69.7 68.9 Lymphocytes % 21.7 D 22.6 Monocytes % 7.8 7.3 Eosinophils % 0.3 D 0.9 D Basophils % 0.5 0.3 Nucleated RBC % 0 0 Sodium Potassium Chloride Carbon Dioxide Anion Gap BUN Creatinine Est GFR (CKD-EPI)AfAm Est GFR (CKD-EPI)NonAf Random Glucose Hemoglobin A1c % Calcium Phosphorus Magnesium Total Bilirubin AST ALT Alkaline Phosphatase Total Protein Albumin Blood Type O POSITIVE Antibody Screen Negative Crossmatch See Detail 09/24/19 09/24/19 06:10 06:10 WBC RBC Hgb Hct MCV MCH MCHC RDW Plt Count MPV Absolute Neuts (auto) Neutrophils % Lymphocytes % Monocytes % Eosinophils % Basophils % Nucleated RBC % Sodium 137 Potassium 3.8 Chloride 102 Carbon Dioxide 30 Anion Gap 5 L BUN 9.9 Creatinine 0.4 L Est GFR (CKD-EPI)AfAm 148.89 Est GFR (CKD-EPI)NonAf 128.47 Random Glucose 109 H Hemoglobin A1c % 5.2 Calcium 7.5 L Phosphorus 2.3 L Magnesium 2.2 Total Bilirubin 0.6 AST 24 ALT 16 Alkaline Phosphatase 69 Total Protein 4.5 L Albumin 1.9 L Blood Type Antibody Screen Crossmatch ASSESSMENT AND PLAN: h/o Breast Ca s/p Bilateral breast reconstruction with CONSTANZA flap Acute Blood Loss Anemia Sinus Tachycardia PE ruled out - pain control - incentive spirometry - flap monitoring - monitor drain outputs - for PRBC transfusions - monitor H/H - IVF - PO as tolerated - DVT prophylaxis - continue ICU monitoring Dr Andrew
[2019-09-24] MEDS: PANTOPRAZOLE 40 MG TABLET (FP) PO SCH (10:09)
[2019-09-24 13:06] LABS: BASO % 0.3 % (0-2.0); EOS % 1.1 % (0-4.5); HEMATOCRIT 27.6 % (32.4-45.2); HEMOGLOBIN 9.5 GM/dL (10.7-15.3); MCH 30.3 pg (25.7-33.7); MCHC 34.5 g/dl (32.0-36.0); MEAN CELL VOLUME 87.9 fl (80-96); MEAN PLT VOLUME 8.3 fl (7.5-11.1); MONO % 7.8 % (3.8-10.2); NEUT % 69.8 % (42.8-82.8); PLATELET COUNT 209 K/MM3 (134-434); RBC 3.14 M/mm3 (3.60-5.2); RDW 13.6 % (11.6-15.6); WHITE BLOOD COUNT 6.8 K/mm3 (4.0-10.0)
--- NOTE | 2019-09-24 16:26 | PN ---
Progress Note (short form) - Note Progress Note: Patient seen and evaluated this morning. Low HCT likely dilutional, but CT abdomen checked. CT negative for pathology or hematoma. Clearly no active bleeding and repeat HCT this afternoon 27. Tachycardia is partially improved. flaps viable, abdomen soft and non-distended Advance to CLD If no complications plan for transfer to floor tomorrow. Continue ambulation and treat atelectasis with incentive spirometry.
[2019-09-24] MEDS ORDERED: SIMETHICONE 80 MG TAB.CHEW (FP) PO ONE (19:31)
[2019-09-24] MEDS ORDERED: POLYETHYLENE GLYCOL 3350 119 GM BTL PO ONE (19:31)
[2019-09-25] MEDS ORDERED: PT OWN MED DRAWER 7, Y5N ONE (00:42)
[2019-09-25] MEDS ORDERED: DEXTROSE 5%-WATER - 50 ML IVPB ONE ×3 (00:50→17:05)
[2019-09-25] MEDS ORDERED: ceFAZolin SODIUM 1 GM VIAL ONE ×3 (00:50→17:05)
[2019-09-25] MEDS: CEFAZOLIN 1 GM in DEXTROSE 5%-WATER - 50 ML IVPB SCH ×3 (01:03→17:12)
[2019-09-25] MEDS ORDERED: ACETAMINOPHEN 1000 MG/100 ML VIAL (NON FORMULARY) IVPB ONE ×2 (01:08→07:30)
[2019-09-25] MEDS: LACTATED RINGERS SOLUTION 1,000 ML/1,000 ML INFUS.BAG IV SCH ×2 (01:16→21:21)
[2019-09-25] MEDS: HEPARIN NA (PORCINE) 5,000 UNITS/ML 1ML VIAL SQ SCH ×2 (07:51→20:23)
[2019-09-25] MEDS ORDERED: HYDROmorphone HCl 2 MG/ML VIAL IVPUSH PRN (08:35)
[2019-09-25] MEDS: PANTOPRAZOLE 40 MG TABLET (FP) PO SCH (09:51)
--- NOTE | 2019-09-25 13:57 | PN ---
Progress Note (short form) - Note Progress Note: POD 4. VSS AF Patient is ambulating and now tolerating PO. Flaps perfectly viable with good color and flow signals Abd soft and non-distended Pain well controlled Tachcardia resolved. Definitively no bleeding or hematoma Madsen d/c'd Once tolerates reg diet and voids OK for discharge with drain care instructions and no compressive garments or bra. f/u garrick one week
[2019-09-25] MEDS ORDERED: HYDROmorphone HCL CARPU-JECT 2 MG/1 ML DISP.SYRIN IVPUSH PRN (16:54)
[2019-09-25] MEDS: HYDROmorphone HCl 2 MG/ML VIAL IVPUSH PRN (17:12)
[2019-09-26] MEDS ORDERED: DEXTROSE 5%-WATER - 50 ML IVPB ONE ×2 (02:27→10:30)
[2019-09-26] MEDS ORDERED: ceFAZolin SODIUM 1 GM VIAL ONE ×2 (02:27→10:29)
[2019-09-26] MEDS: CEFAZOLIN 1 GM in DEXTROSE 5%-WATER - 50 ML IVPB SCH ×2 (02:31→10:43)
[2019-09-26] MEDS: HYDROmorphone HCl 2 MG/ML VIAL IVPUSH PRN ×3 (05:51→10:50)
[2019-09-26] MEDS: HEPARIN NA (PORCINE) 5,000 UNITS/ML 1ML VIAL SQ SCH (10:05)
[2019-09-26] MEDS: PANTOPRAZOLE 40 MG TABLET (FP) PO SCH (10:43)
--- NOTE | 2019-09-26 13:09 | PN ---
Progress Note (short form) - Note Progress Note: Patient meets all d/c criteria Flaps viable f/u this week
[2019-09-26 13:57] VITALS: BP 130/75; PULSE 93; TEMP 98.4
--- NOTE | 2019-09-27 18:55 | PATH ---
Surgical Pathology Report Patient Name: MAGGY THURMAN [facility]. Rec. #: [id number] /Age/Gender: 1975 (Age: 44) / F Account: [id number] [facility] 09[facility]21[facility]2019 Received: 09/22/2019 Reported: 09/27/2019 Physicians: Jigar Pierre Specimen(s) Received A: LEFT TISSUE TECHNOLOGY PROJECT MANAGER B: LEFT INTERNAL MAMMARY LYMPH NODE C: RIGHT TISSUE TECHNOLOGY PROJECT MANAGER Clinical History Breast cancer Final Diagnosis A. TISSUE TECHNOLOGY PROJECT MANAGER, LEFT, REMOVAL: TISSUE TECHNOLOGY PROJECT MANAGER. MACROSCOPIC DIAGNOSIS. B. INTERNAL MAMMARY LYMPH NODE, LEFT, EXCISION: ONE LYMPH NODE NEGATIVE FOR CARCINOMA, FRAGMENTS (0/1). C. TISSUE TECHNOLOGY PROJECT MANAGER, LEFT, REMOVAL: TISSUE TECHNOLOGY PROJECT MANAGER. MACROSCOPIC DIAGNOSIS. Electronically Signed Karol Evans M.D. Gross Description A. Received fresh labeled "left tissue canning machine operator," is a 17.0 x 13.5 x 2.5 cm agustin, irregular foreign body, consistent with a breast tissue canning machine operator. No soft tissue is present. No sections are submitted, gross only. B. Received in formalin labeled "left internal mammary lymph node," are 2 agustin soft tissue fragments measuring 0.9 x 0.4 x 0.2 cm and 1.2 x 0.8 x 0.3 cm, possibly consistent with lymph nodes. The specimen is submitted in toto in one cassette. C. Received fresh labeled "right tissue canning machine operator," is a 17.0 x 13.5 x 2.5 cm agustin, irregular foreign body, consistent with a breast tissue canning machine operator. No soft tissue is present. No sections are submitted, gross only. 09/22/2019 saudi09/22/2019
== END 2019-09-26 14:50 | disposition home or self-care (01) | DRG 940 ==
LOC: JSAMEDAYSX 06:44 → JICU 21:09
PROVIDERS: ADMIT Plastic Surgery; ATTEND Plastic Surgery
PROC: 3E0T3BZ Introduction of Anesthetic Agent into Peripheral Nerves and Plexi, Percutaneous Approach (ICD-10-PCS; 2019-09-21)
PROC: 0HRV0JZ Replacement of Bilateral Breast with Synthetic Substitute, Open Approach (ICD-10-PCS; principal; 2019-09-21 08:00)
PROC: 30233N1 Transfusion of Nonautologous Red Blood Cells into Peripheral Vein, Percutaneous Approach (ICD-10-PCS; 2019-09-23)
DX: Z90.13 Acquired absence of bilateral breasts and nipples (principal); D62 Acute posthemorrhagic anemia; Z45.812 Encounter for adjustment or removal of left breast implant; Z45.811 Encounter for adjustment or removal of right breast implant; R00.0 Tachycardia, unspecified
CPT/HCPCS: 36415; 36430; 71045-TC-FY; 71275-TC; 74176-TC; 80053; 83036; 83735; 84100; 84703; 85025; 85027; 86850; 86900; 86901; 86922; 88300-TC; 88305-TC; 93005; 93010; 93970-TC; 94760; 97116-GP; 97161-GP; J0131; J1644; P9038; P9058; Q9967

== ENCOUNTER 2019-10-21 05:40 | Day surgery (SDC) | payer OTHER ==
[2019-10-21 09:03] LABS: BASO % 0.7 % (0-2.0); HEMATOCRIT 35.5 % (32.4-45.2); HEMOGLOBIN 11.8 GM/dL (10.7-15.3); LYMPH % 27.6 % (8-40); MCH 29.4 pg (25.7-33.7); MCHC 33.3 g/dl (32.0-36.0); MEAN CELL VOLUME 88.3 fl (80-96); MONO % 5.8 % (3.8-10.2); NEUT % 63.9 % (42.8-82.8); PLATELET COUNT 294 K/MM3 (134-434); RBC 4.02 M/mm3 (3.60-5.2); RDW 14.4 % (11.6-15.6); WHITE BLOOD COUNT 6.4 K/mm3 (4.0-10.0)
[2019-10-21 09:32] LABS: ALBUMIN 3.3 g/dl (3.4-5.0); BILIRUBIN,TOTAL 0.4 mg/dL (0.2-1); BLOOD UREA NITROGEN 8.7 mg/dL (7-18); CALCIUM 9.2 mg/dL (8.5-10.1); CREATININE 0.6 mg/dL (0.55-1.3); MAGNESIUM 2.5 mg/dL (1.8-2.4)
[2019-10-21] MEDS ORDERED: LIDOCAINE HCL 1%, 10 MG/ML (20ML VIAL) ID ONE (10:00)
[2019-10-21] MEDS ORDERED: GOSERELIN ACETATE 3.6 MG IMPLANT SYRINGE SQ ONE (10:00)
[2019-10-21 14:27] VITALS: BP 114/69; PULSE 82; TEMP 97.7
[2019-10-22 04:08] LABS: FOLLICLE STIMULATING HORMONE 7.6 mIU/mL (.); LUTEINIZING HORMONE 16.4 mIU/mL (.)
== END 2019-10-21 11:40 | disposition home or self-care (01) ==
LOC: JONCCHEMO 05:40 → J7W 10:00 → JONCCHEMO 11:40
PROVIDERS: ATTEND Internal Medicine Hematology & Oncology
DX: Z51.11 Encounter for antineoplastic chemotherapy (principal); C50.411 Malignant neoplasm of upper-outer quadrant of right female breast
CPT/HCPCS: 36415; 80053; 82670; 83001; 83002; 83735; 84703; 85025; 96402; J9202

== ENCOUNTER 2019-11-18 05:35 | Day surgery (SDC) | payer OTHER ==
[2019-11-18 09:04] LABS: BASO % 0.8 % (0-2.0); HEMOGLOBIN 12.5 GM/dL (10.7-15.3); LYMPH % 32.2 % (8-40); MCH 29.1 pg (25.7-33.7); MEAN CELL VOLUME 88.3 fl (80-96); MEAN PLT VOLUME 8.1 fl (7.5-11.1); MONO % 5.8 % (3.8-10.2); NEUT % 59.2 % (42.8-82.8); PLATELET COUNT 305 K/MM3 (134-434); RBC 4.31 M/mm3 (3.60-5.2); RDW 14.3 % (11.6-15.6); WHITE BLOOD COUNT 6.1 K/mm3 (4.0-10.0)
[2019-11-18 09:44] LABS: ALBUMIN 3.6 g/dl (3.4-5.0); ALK PHOS 142 U/L (45-117); ANION GAP 7 MMOL/L (8-16); BILIRUBIN,TOTAL 0.4 mg/dL (0.2-1); BLOOD UREA NITROGEN 15.5 mg/dL (7-18); CALCIUM 9.4 mg/dL (8.5-10.1); CHLORIDE 107 mmol/L (98-107); CO2 25 mmol/L (21-32); CREATININE 0.7 mg/dL (0.55-1.3); GLUCOSE,RANDOM 102 mg/dL (74-106); IRON SERUM 78 ug/dL (50-175); MAGNESIUM 2.4 mg/dL (1.8-2.4); POTASSIUM 4.2 mmol/L (3.5-5.1); SGOT/AST 17 U/L (15-37); SGPT/ALT 31 U/L (13-61); SODIUM 139 mmol/L (136-145); TOT PROT 7.6 g/dl (6.4-8.2); TOTAL IRON BINDING CAPACITY 347 ug/dL (250-450)
[2019-11-18] MEDS ORDERED: GOSERELIN ACETATE 3.6 MG IMPLANT SYRINGE SQ ONE (10:00)
[2019-11-18] MEDS ORDERED: LIDOCAINE HCL 1%, 10 MG/ML (20ML VIAL) ID ONE (10:00)
[2019-11-18 16:43] VITALS: BP 121/78; PULSE 87; TEMP 98.1
[2019-11-19 04:07] LABS: FOLLICLE STIMULATING HORMONE 5.9 mIU/mL (.); LUTEINIZING HORMONE 0.5 mIU/mL (.)
== END 2019-11-18 10:35 | disposition home or self-care (01) ==
LOC: JONCCHEMO 05:35 → J7W 10:15 → JONCCHEMO 10:35
PROVIDERS: ATTEND Internal Medicine Hematology & Oncology
DX: Z51.11 Encounter for antineoplastic chemotherapy (principal); C50.411 Malignant neoplasm of upper-outer quadrant of right female breast
CPT/HCPCS: 36415; 80053; 82670; 82728; 83001; 83002; 83540; 83550; 83735; 84702; 85025; 96402; J9202

== ENCOUNTER 2019-12-09 05:44 | Day surgery (SDC) | payer OTHER ==
[2019-12-09 08:57] LABS: BASO % 0.7 % (0-2.0); EOS % 2.3 % (0-4.5); HEMATOCRIT 38.8 % (32.4-45.2); LYMPH % 35.9 % (8-40); MCHC 33.4 g/dl (32.0-36.0); MEAN PLT VOLUME 8.6 fl (7.5-11.1); MONO % 5.6 % (3.8-10.2); NEUT % 55.5 % (42.8-82.8); PLATELET COUNT 279 K/MM3 (134-434); RBC 4.46 M/mm3 (3.60-5.2); RDW 14.5 % (11.6-15.6); WHITE BLOOD COUNT 6.9 K/mm3 (4.0-10.0)
[2019-12-09 09:33] LABS: ALBUMIN 3.8 g/dl (3.4-5.0); BILIRUBIN,TOTAL 0.3 mg/dL (0.2-1); BLOOD UREA NITROGEN 14.7 mg/dL (7-18); CALCIUM 9.5 mg/dL (8.5-10.1); CREATININE 0.6 mg/dL (0.55-1.3); MAGNESIUM 2.4 mg/dL (1.8-2.4); POTASSIUM 4.4 mmol/L (3.5-5.1); TOT PROT 7.7 g/dl (6.4-8.2)
[2019-12-09] MEDS ORDERED: LIDOCAINE HCL 1%, 10 MG/ML (20ML VIAL) ID ONE (10:00)
[2019-12-09] MEDS ORDERED: GOSERELIN ACETATE 3.6 MG IMPLANT SYRINGE SQ ONE (10:00)
[2019-12-09 14:38] VITALS: BP 126/89; TEMP 98.1
[2019-12-09 14:39] VITALS: PULSE 89
[2019-12-10 04:07] LABS: LUTEINIZING HORMONE 0.1 mIU/mL (.)
== END 2019-12-09 10:45 | disposition home or self-care (01) ==
LOC: JONCCHEMO 05:44 → J7W 10:00 → JONCCHEMO 10:45
PROVIDERS: ATTEND Internal Medicine Hematology & Oncology
DX: Z51.11 Encounter for antineoplastic chemotherapy (principal); C50.411 Malignant neoplasm of upper-outer quadrant of right female breast
CPT/HCPCS: 36415; 80053; 82670; 83001; 83002; 83735; 84702; 85025; 96402; J9202

== ENCOUNTER 2020-01-06 06:20 | Day surgery (SDC) | payer OTHER ==
[2020-01-06 09:27] LABS: BASO % 0.8 % (0-2.0); EOS % 2.1 % (0-4.5); HEMATOCRIT 36.7 % (32.4-45.2); HEMOGLOBIN 12.2 GM/dL (10.7-15.3); LYMPH % 36.4 % (8-40); MCH 28.4 pg (25.7-33.7); MCHC 33.3 g/dl (32.0-36.0); MEAN CELL VOLUME 85.3 fl (80-96); MEAN PLT VOLUME 8.1 fl (7.5-11.1); MONO % 4.8 % (3.8-10.2); NEUT % 55.9 % (42.8-82.8); PLATELET COUNT 342 K/MM3 (134-434); RDW 15.5 % (11.6-15.6); WHITE BLOOD COUNT 5.7 K/mm3 (4.0-10.0)
[2020-01-06 09:51] LABS: ALBUMIN 3.7 g/dl (3.4-5.0); BILIRUBIN,TOTAL 0.4 mg/dL (0.2-1); BLOOD UREA NITROGEN 14.9 mg/dL (7-18); CALCIUM 9.4 mg/dL (8.5-10.1); CREATININE 0.8 mg/dL (0.55-1.3); MAGNESIUM 2.6 mg/dL (1.8-2.4); POTASSIUM 4.1 mmol/L (3.5-5.1); TOT PROT 7.6 g/dl (6.4-8.2)
[2020-01-06] MEDS ORDERED: GOSERELIN ACETATE 3.6 MG IMPLANT SYRINGE SQ ONE (10:00)
[2020-01-06] MEDS ORDERED: LIDOCAINE HCL 1%, 10 MG/ML (20ML VIAL) ID ONE (10:00)
[2020-01-06 12:09] VITALS: BP 108/79; PULSE 83; TEMP 98.3
[2020-01-07 02:10] LABS: FOLLICLE STIMULATING HORMONE 8.1 mIU/mL (.); LUTEINIZING HORMONE 0.1 mIU/mL (.)
== END 2020-01-06 12:00 | disposition home or self-care (01) ==
LOC: JONCCHEMO 06:20 → J7W 10:15 → JONCCHEMO 12:00
PROVIDERS: ATTEND Nurse Practitioner Family
DX: Z51.11 Encounter for antineoplastic chemotherapy (principal); C50.411 Malignant neoplasm of upper-outer quadrant of right female breast
CPT/HCPCS: 36415; 72070-TC-FY; 72100-TC-FY; 80053; 82670; 83001; 83002; 83735; 84702; 85025; 96402; J9202

== ENCOUNTER 2020-04-06 06:16 | Day surgery (SDC) | payer OTHER ==
[~2020-04-06 06:16] MED LIST: GOSERELIN ACETATE 3.6 MG IMPLANT SYRINGE SQ ONE; LIDOCAINE HCL 1%, 10 MG/ML (20ML VIAL) ID ONE
[2020-04-06 09:04] LABS: BASO % 0.7 % (0-2.0); EOS % 3.5 % (0-4.5); HEMATOCRIT 39.7 % (32.4-45.2); HEMOGLOBIN 13.1 GM/dL (10.7-15.3); LYMPH % 34.5 % (8-40); MCH 28.5 pg (25.7-33.7); MEAN CELL VOLUME 86.3 fl (80-96); MEAN PLT VOLUME 8.6 fl (7.5-11.1); MONO % 6.5 % (3.8-10.2); NEUT % 54.8 % (42.8-82.8); PLATELET COUNT 286 K/MM3 (134-434); RDW 15.5 % (11.6-15.6); WHITE BLOOD COUNT 6.3 K/mm3 (4.0-10.0)
[2020-04-06 09:25] LABS: ALBUMIN 3.6 g/dl (3.4-5.0); BILIRUBIN,DIRECT 0.2 mg/dL (0.0-0.2); BILIRUBIN,TOTAL 0.6 mg/dL (0.2-1); BLOOD UREA NITROGEN 18.6 mg/dL (7-18); CALCIUM 9.2 mg/dL (8.5-10.1); CREATININE 0.8 mg/dL (0.55-1.3); MAGNESIUM 2.5 mg/dL (1.8-2.4); POTASSIUM 4.7 mmol/L (3.5-5.1); TOT PROT 7.2 g/dl (6.4-8.2)
[2020-04-06] MEDS ORDERED: GOSERELIN ACETATE 3.6 MG IMPLANT SYRINGE SQ ONE (10:00)
[2020-04-06] MEDS ORDERED: LIDOCAINE HCL 1%, 10 MG/ML (20ML VIAL) ID ONE (10:00)
[2020-04-06 13:57] VITALS: BP 121/68; TEMP 97.9
[2020-04-06 14:07] VITALS: PULSE 72
[2020-04-07 04:06] LABS: FOLLICLE STIMULATING HORMONE 6.5 mIU/mL (.); LUTEINIZING HORMONE < 0.3 mIU/mL (.)
== END 2020-04-06 10:30 | disposition home or self-care (01) ==
LOC: JONCCHEMO 06:16
PROVIDERS: ATTEND Nurse Practitioner Family
DX: Z51.11 Encounter for antineoplastic chemotherapy (principal); C50.411 Malignant neoplasm of upper-outer quadrant of right female breast
CPT/HCPCS: 36415; 80048; 80076; 82670; 83001; 83002; 83735; 84703; 85025; 96402; J9202

== ENCOUNTER 2020-05-04 07:22 | Day surgery (SDC) | payer OTHER ==
[2020-05-04] MEDS ORDERED: GOSERELIN ACETATE 3.6 MG IMPLANT SYRINGE SQ ONE (10:00)
[2020-05-04] MEDS ORDERED: LIDOCAINE HCL 1%, 10 MG/ML (20ML VIAL) ID ONE (10:00)
[2020-05-04 11:03] LABS: BASO % 0.7 % (0-2.0); EOS % 4.9 % (0-4.5); HEMATOCRIT 38.5 % (32.4-45.2); HEMOGLOBIN 12.8 GM/dL (10.7-15.3); LYMPH % 30.5 % (8-40); MCH 28.6 pg (25.7-33.7); MCHC 33.2 g/dl (32.0-36.0); MEAN PLT VOLUME 8.4 fl (7.5-11.1); MONO % 5.3 % (3.8-10.2); NEUT % 58.6 % (42.8-82.8); PLATELET COUNT 259 K/MM3 (134-434); RBC 4.48 M/mm3 (3.60-5.2); WHITE BLOOD COUNT 7.8 K/mm3 (4.0-10.0)
[2020-05-04 11:33] LABS: ALBUMIN 3.5 g/dl (3.4-5.0); BILIRUBIN,DIRECT 0.1 mg/dL (0.0-0.2); BILIRUBIN,TOTAL 0.3 mg/dL (0.2-1); BLOOD UREA NITROGEN 16.8 mg/dL (7-18); CALCIUM 9.2 mg/dL (8.5-10.1); CREATININE 0.6 mg/dL (0.55-1.3); MAGNESIUM 2.6 mg/dL (1.8-2.4); POTASSIUM 4.1 mmol/L (3.5-5.1); TOT PROT 7.3 g/dl (6.4-8.2)
[2020-05-04 14:49] VITALS: BP 104/72; TEMP 98.6
[2020-05-04 14:51] VITALS: PULSE 789
[2020-05-07 23:07] LABS: LUTEINIZING HORMONE < 0.3 mIU/mL (.)
== END 2020-05-04 11:40 | disposition home or self-care (01) ==
LOC: JONCCHEMO 07:22
PROVIDERS: ATTEND Internal Medicine Hematology & Oncology
DX: Z51.11 Encounter for antineoplastic chemotherapy (principal); C50.411 Malignant neoplasm of upper-outer quadrant of right female breast
CPT/HCPCS: 36415; 80048; 80076; 82670; 82728; 83001; 83002; 83540; 83550; 83735; 84703; 85025; 96402; J9202

== ENCOUNTER 2020-06-01 07:18 | Day surgery (SDC) | payer OTHER ==
[2020-06-01] MEDS ORDERED: LIDOCAINE HCL 1%, 10 MG/ML (20ML VIAL) ID ONE (10:00)
[2020-06-01] MEDS ORDERED: GOSERELIN ACETATE 3.6 MG IMPLANT SYRINGE SQ ONE (10:30)
[2020-06-01 11:26] LABS: BASO % 0.9 % (0-2.0); EOS % 5.5 % (0-4.5); HEMATOCRIT 38.9 % (32.4-45.2); HEMOGLOBIN 12.8 GM/dL (10.7-15.3); LYMPH % 37.1 % (8-40); MCH 28.3 pg (25.7-33.7); MCHC 32.8 g/dl (32.0-36.0); MEAN CELL VOLUME 86.3 fl (80-96); MEAN PLT VOLUME 8.4 fl (7.5-11.1); MONO % 5.7 % (3.8-10.2); NEUT % 50.8 % (42.8-82.8); PLATELET COUNT 263 K/MM3 (134-434); RBC 4.51 M/mm3 (3.60-5.2); RDW 15.1 % (11.6-15.6); WHITE BLOOD COUNT 6.8 K/mm3 (4.0-10.0)
[2020-06-01 11:54] LABS: ALBUMIN 3.7 g/dl (3.4-5.0); BILIRUBIN,DIRECT 0.2 mg/dL (0.0-0.2); BILIRUBIN,TOTAL 0.3 mg/dL (0.2-1); BLOOD UREA NITROGEN 17.6 mg/dL (7-18); CALCIUM 9.4 mg/dL (8.5-10.1); CREATININE 0.7 mg/dL (0.55-1.3); MAGNESIUM 2.5 mg/dL (1.8-2.4); POTASSIUM 4.2 mmol/L (3.5-5.1); TOT PROT 7.5 g/dl (6.4-8.2)
[2020-06-01 14:32] VITALS: BP 118/80; PULSE 82; TEMP 97.9
[2020-06-02 08:09] LABS: FOLLICLE STIMULATING HORMONE 5.1 mIU/mL (.); LUTEINIZING HORMONE < 0.3 mIU/mL (.)
== END 2020-06-01 12:00 | disposition home or self-care (01) ==
LOC: JONCCHEMO 07:18
PROVIDERS: ATTEND Internal Medicine Hematology & Oncology
DX: Z51.11 Encounter for antineoplastic chemotherapy (principal); C50.411 Malignant neoplasm of upper-outer quadrant of right female breast
CPT/HCPCS: 36415; 80048; 80076; 82670; 82977; 83001; 83002; 83735; 84703; 85025; 96402; J9202

== ENCOUNTER 2020-06-29 08:48 | Day surgery (SDC) | payer OTHER ==
[2020-06-29] MEDS ORDERED: GOSERELIN ACETATE 3.6 MG IMPLANT SYRINGE SQ ONE (10:00)
[2020-06-29] MEDS ORDERED: LIDOCAINE HCL 1%, 10 MG/ML (20ML VIAL) ID ONE (10:00)
[2020-06-29 10:14] LABS: BASO % 0.5 % (0-2.0); HEMATOCRIT 39.2 % (32.4-45.2); HEMOGLOBIN 12.8 GM/dL (10.7-15.3); LYMPH % 33.2 % (8-40); MCH 28.3 pg (25.7-33.7); MCHC 32.8 g/dl (32.0-36.0); MEAN CELL VOLUME 86.3 fl (80-96); MEAN PLT VOLUME 8.4 fl (7.5-11.1); MONO % 5.9 % (3.8-10.2); NEUT % 57.4 % (42.8-82.8); PLATELET COUNT 257 K/MM3 (134-434); RBC 4.53 M/mm3 (3.60-5.2); RDW 15.3 % (11.6-15.6); WHITE BLOOD COUNT 7.9 K/mm3 (4.0-10.0)
[2020-06-29 10:46] LABS: ALBUMIN 3.7 g/dl (3.4-5.0); BILIRUBIN,DIRECT 0.2 mg/dL (0.0-0.2); BLOOD UREA NITROGEN 17.3 mg/dL (7-18); CALCIUM 9.3 mg/dL (8.5-10.1); CREATININE 0.6 mg/dL (0.55-1.3); MAGNESIUM 2.2 mg/dL (1.8-2.4); POTASSIUM 4.3 mmol/L (3.5-5.1); TOT PROT 7.6 g/dl (6.4-8.2)
[2020-06-29 11:12] LABS: BILIRUBIN,TOTAL 0.3 mg/dL (0.2-1)
[2020-06-29 12:33] VITALS: BP 136/66; PULSE 72; TEMP 97.6
[2020-06-30 04:06] LABS: LUTEINIZING HORMONE < 0.3 mIU/mL (.)
== END 2020-06-29 10:30 | disposition home or self-care (01) ==
LOC: JONCCHEMO 08:48
PROVIDERS: ATTEND Internal Medicine Hematology & Oncology
DX: Z51.11 Encounter for antineoplastic chemotherapy (principal); C50.411 Malignant neoplasm of upper-outer quadrant of right female breast
CPT/HCPCS: 36415; 80048; 80076; 82670; 83001; 83002; 83735; 84703; 85025; 96402; J9202

== ENCOUNTER 2020-07-27 07:19 | Day surgery (SDC) | payer OTHER ==
--- OUTSIDE RECORDS SUMMARY | 2020-07-27 07:46 | XMS ---
:1975 Author Organization [facility] Support Name Relationship Address Phone [facility] Unavailable [address] [place] [address] [facility] Unavailable [address] [place] [address] VALERIO THURMAN [address] [facility] PH [phone] [place] [address] [facility] VALERIO Unavailable [address] [place] [address] Re-disclosure Warning The records that you are about to access may contain information from federally- assisted alcohol or drug abuse programs. If such information is present, then the following federally mandated warning applies: This information has been disclosed to you from records protected by federal confidentiality rules (42 CFR part 2). The federal rules prohibit you from making any further disclosure of this information unless further disclosure is expressly permitted by the written consent of the person to whom it pertains or as otherwise permitted by 42 CFR part 2. A general authorization for the release of medical or other information is NOT sufficient for this purpose. The Federal rules restrict any use of the information to criminally investigate or prosecute any alcohol or drug abuse patient.The records that you are about to access may contain highly sensitive health information, the redisclosure of which is protected by Article 27-F of the [place] State Public Health law. If you continue you may haveaccess to information: Regarding HIV / AIDS; Provided by facilities licensed or operated by the [facility] Office of Mental Health; or Provided by the [facility] Office for People With Developmental Disabilities. If such information is present, then the following [facility] mandated warning applies: This information has been disclosed to you from confidential records which are protected by state law. State law prohibits you from making any further disclosure of this information without the specific written consent of the person to whom it pertains, or as otherwise permitted by law. Any unauthorized further disclosure in violation of state law may result in a fine or custodial sentence or both. A general authorization for the release of medical or other information is NOT sufficient authorization for further disclosure. Encounters Encounter Providers Location Date Indications Data Source(s ) Outpatient [facility] 08/20/2019 eCW3 ([facility] A28 12:00:00 AM Health Care) EST - 08/20/2019 12:00:00 AM EST Insurance Providers Payer name Policy type Policy ID Covered Covered libertarian's Policy P nina / Coverage libertarian ID relationship to Eller Inf ormation type eller [facility] [id number] - [id number] SP [id number] [facility] JOSELUIS [id number] SP [id number] ESSENTIAL PLAN 3 4 JOSELUIS [id number] SP [id number] ESSENTIAL PLAN 3 4 JOSELUIS [id number] SP [id number] ESSENTIAL PLAN 3 4 MEDICAID [id number] SP [id number] [facility] [id number] SP [id number] [facility] [id number] SP [id number] [facility] [id number] SP [id number] JOSELUIS [id number] SP [id number] MEDICARE ADV PLAN Problems, Conditions, and Diagnoses Code Display Name Description Problem Type Effective Dates Data Source(s) E66.9 Obesity (BMI Obesity (BMI Problem 08/20/2019 eCW3 ([facility] on 30-39.9) 30-39.9) 12:00:[address] [facility]) Surgeries/Procedures Procedure Description Date Indications Data Source(s) EKG W INTERPRETATION 08/20/2019 eCW3 ([facility] 12:00:[address] [facility]) Social History Code Duration Value Status Description Data Source(s ) Smoking 11/22/2019 12:00:00 Former Smoker completed Former Smoker eCW3 ([facility]) Smoking 11/22/2019 12:00:00 Former Smoker completed Former Smoker eCW3 ([facility]) Smoking 11/22/2019 12:00:00 Former Smoker completed Former Smoker eCW3 ([facility]) Vital Signs ID Date Data Source UNK Name Value Range Interpretation Code Description Data Source(s) Diastolic blood 85 mm[Hg] 85 mm[Hg] eCW3 ([facility]) Systolic blood 125 mm[Hg] 125 mm[Hg] eCW3 ([facility]) Body temperature 97.6 [degF] 97.6 [degF] eCW3 ( [facility]) Heart rate 20 /min 20 /min eCW3 ([facility]) Body mass index 36.05 kg/m2 36.05 kg/m2 eCW3 (H udson (BMI) [Ratio] [facility]) Body weight 180 [lb_av] 180 [lb_av] eCW3 ([facility]) Body height 59.25 [in_i] 59.25 [in_i] eCW3 ([facility])
[2020-07-27] MEDS ORDERED: GOSERELIN ACETATE 3.6 MG IMPLANT SYRINGE SQ ONE (10:00)
[2020-07-27] MEDS ORDERED: LIDOCAINE HCL 1%, 10 MG/ML (20ML VIAL) ID ONE (10:00)
[2020-07-27 10:36] LABS: BASO % 0.3 % (0-2.0); EOS % 1.1 % (0-4.5); HEMATOCRIT 36.2 % (32.4-45.2); LYMPH % 27.2 % (8-40); MCH 29.1 pg (25.7-33.7); MCHC 33.2 g/dl (32.0-36.0); MEAN CELL VOLUME 87.5 fl (80-96); MEAN PLT VOLUME 8.1 fl (7.5-11.1); MONO % 6.2 % (3.8-10.2); NEUT % 65.2 % (42.8-82.8); PLATELET COUNT 276 K/MM3 (134-434); RBC 4.14 M/mm3 (3.60-5.2); RDW 16.8 % (11.6-15.6); WHITE BLOOD COUNT 8.6 K/mm3 (4.0-10.0)
[2020-07-27 11:13] LABS: ALBUMIN 3.1 g/dl (3.4-5.0); BILIRUBIN,DIRECT 0.2 mg/dL (0.0-0.2); BILIRUBIN,TOTAL 0.3 mg/dL (0.2-1); BLOOD UREA NITROGEN 19.9 mg/dL (7-18); CALCIUM 8.8 mg/dL (8.5-10.1); CREATININE 0.6 mg/dL (0.55-1.3); MAGNESIUM 2.3 mg/dL (1.8-2.4); POTASSIUM 4.1 mmol/L (3.5-5.1); TOT PROT 6.7 g/dl (6.4-8.2)
[2020-07-27 16:02] VITALS: BP 115/66; PULSE 78; TEMP 98
[2020-07-28 08:07] LABS: FOLLICLE STIMULATING HORMONE 5.3 mIU/mL (.); LUTEINIZING HORMONE < 0.3 mIU/mL (.)
== END 2020-07-27 11:15 | disposition home or self-care (01) ==
LOC: JONCCHEMO 07:19
PROVIDERS: ATTEND Internal Medicine Hematology & Oncology
DX: Z51.11 Encounter for antineoplastic chemotherapy (principal); C50.911 Malignant neoplasm of unspecified site of right female breast
CPT/HCPCS: 36415; 80048; 80076; 82670; 83001; 83002; 83735; 84703; 85025; 96402; J9202

== ENCOUNTER 2020-08-24 06:03 | Day surgery (SDC) | payer OTHER ==
[2020-08-24] MEDS ORDERED: LIDOCAINE HCL 1%, 10 MG/ML (20ML VIAL) ID ONE (10:00)
[2020-08-24] MEDS ORDERED: GOSERELIN ACETATE 3.6 MG IMPLANT SYRINGE SQ ONE (10:00)
[2020-08-24 11:27] LABS: BASO % 0.5 % (0-2.0); EOS % 0.2 % (0-4.5); HEMATOCRIT 38.7 % (32.4-45.2); HEMOGLOBIN 12.9 GM/dL (10.7-15.3); LYMPH % 16.6 % (8-40); MCH 29.9 pg (25.7-33.7); MCHC 33.4 g/dl (32.0-36.0); MEAN CELL VOLUME 89.4 fl (80-96); MEAN PLT VOLUME 8.8 fl (7.5-11.1); MONO % 3.9 % (3.8-10.2); NEUT % 78.8 % (42.8-82.8); PLATELET COUNT 277 K/MM3 (134-434); RBC 4.32 M/mm3 (3.60-5.2); RDW 16.7 % (11.6-15.6); WHITE BLOOD COUNT 9.9 K/mm3 (4.0-10.0)
[2020-08-24 11:56] LABS: POTASSIUM 4.5 mmol/L (3.5-5.1)
[2020-08-24 11:57] LABS: CALCIUM 9.3 mg/dL (8.5-10.1)
[2020-08-24 11:58] LABS: BLOOD UREA NITROGEN 16.7 mg/dL (7-18); MAGNESIUM 2.5 mg/dL (1.8-2.4)
[2020-08-24 11:59] LABS: ALBUMIN 3.5 g/dl (3.4-5.0)
[2020-08-24 12:01] LABS: BILIRUBIN,DIRECT 0.2 mg/dL (0.0-0.2); CREATININE 0.7 mg/dL (0.55-1.3)
[2020-08-24 12:04] LABS: BILIRUBIN,TOTAL 0.5 mg/dL (0.2-1); TOT PROT 7.3 g/dl (6.4-8.2)
[2020-08-24 14:52] VITALS: BP 114/68; PULSE 83; TEMP 97.6
[2020-08-26 06:06] LABS: FOLLICLE STIMULATING HORMONE 6.8 mIU/mL (.); LUTEINIZING HORMONE 0.5 mIU/mL (.)
== END 2020-08-24 12:10 | disposition home or self-care (01) ==
LOC: JONCCHEMO 06:03
PROVIDERS: ATTEND Internal Medicine Hematology & Oncology
DX: Z51.11 Encounter for antineoplastic chemotherapy (principal); C50.911 Malignant neoplasm of unspecified site of right female breast
CPT/HCPCS: 36415; 80048; 80076; 82670; 83001; 83002; 83735; 84703; 85025; 96402; J9202

== ENCOUNTER 2020-09-21 05:59 | Day surgery (SDC) | payer OTHER ==
[2020-09-21] MEDS ORDERED: GOSERELIN ACETATE 3.6 MG IMPLANT SYRINGE SQ ONE (10:00)
[2020-09-21] MEDS ORDERED: LIDOCAINE HCL 1%, 10 MG/ML (20ML VIAL) ID ONE (10:00)
[2020-09-21 11:21] LABS: BASO % 0.6 % (0-2.0); EOS % 0.4 % (0-4.5); HEMATOCRIT 38.6 % (32.4-45.2); HEMOGLOBIN 12.7 GM/dL (10.7-15.3); LYMPH % 18.6 % (8-40); MCH 29.7 pg (25.7-33.7); MCHC 32.9 g/dl (32.0-36.0); MEAN CELL VOLUME 90.4 fl (80-96); MEAN PLT VOLUME 8.6 fl (7.5-11.1); MONO % 4.7 % (3.8-10.2); NEUT % 75.7 % (42.8-82.8); PLATELET COUNT 313 K/MM3 (134-434); RBC 4.27 M/mm3 (3.60-5.2); RDW 16.5 % (11.6-15.6); WHITE BLOOD COUNT 8.8 K/mm3 (4.0-10.0)
[2020-09-21 11:44] LABS: POTASSIUM 4.4 mmol/L (3.5-5.1)
[2020-09-21 11:47] LABS: ALBUMIN 3.4 g/dl (3.4-5.0); BLOOD UREA NITROGEN 17.1 mg/dL (7-18); CALCIUM 9.4 mg/dL (8.5-10.1)
[2020-09-21 11:48] LABS: MAGNESIUM 2.5 mg/dL (1.8-2.4)
[2020-09-21 11:50] LABS: BILIRUBIN,DIRECT 0.1 mg/dL (0.0-0.2); CREATININE 0.7 mg/dL (0.55-1.3)
[2020-09-21 11:52] LABS: BILIRUBIN,TOTAL 0.5 mg/dL (0.2-1)
[2020-09-21 15:37] VITALS: BP 127/72; PULSE 79; TEMP 98.1
[2020-09-22 08:12] LABS: FOLLICLE STIMULATING HORMONE 6.2 mIU/mL (.); LUTEINIZING HORMONE < 0.3 mIU/mL (.)
== END 2020-09-21 12:05 | disposition home or self-care (01) ==
LOC: JONCCHEMO 05:59
PROVIDERS: ATTEND Internal Medicine Hematology & Oncology
DX: Z51.11 Encounter for antineoplastic chemotherapy (principal); C50.911 Malignant neoplasm of unspecified site of right female breast
CPT/HCPCS: 36415; 80048; 80076; 82670; 83001; 83002; 83735; 84703; 85025; 96402; J9202

== ENCOUNTER 2020-10-19 07:58 | Day surgery (SDC) | payer OTHER ==
[2020-10-19 09:56] LABS: BASO % 0.6 % (0-2.0); EOS % 2.7 % (0-4.5); HEMOGLOBIN 13.2 GM/dL (10.7-15.3); LYMPH % 35.9 % (8-40); MCHC 33.8 g/dl (32.0-36.0); MEAN CELL VOLUME 88.8 fl (80-96); MEAN PLT VOLUME 8.5 fl (7.5-11.1); NEUT % 55.8 % (42.8-82.8); PLATELET COUNT 309 K/MM3 (134-434); RBC 4.39 M/mm3 (3.60-5.2); RDW 14.4 % (11.6-15.6)
[2020-10-19] MEDS ORDERED: LIDOCAINE HCL 1%, 10 MG/ML (20ML VIAL) ID ONE (10:00)
[2020-10-19] MEDS ORDERED: GOSERELIN ACETATE 3.6 MG IMPLANT SYRINGE SQ ONE (10:00)
[2020-10-19 10:20] LABS: CALCIUM 8.9 mg/dL (8.5-10.1)
[2020-10-19 10:21] LABS: ALBUMIN 3.3 g/dl (3.4-5.0); BLOOD UREA NITROGEN 16.4 mg/dL (7-18)
[2020-10-19 10:24] LABS: BILIRUBIN,DIRECT 0.1 mg/dL (0.0-0.2); CREATININE 0.8 mg/dL (0.55-1.3)
[2020-10-19 10:26] LABS: TOT PROT 7.1 g/dl (6.4-8.2)
[2020-10-19 10:42] LABS: BILIRUBIN,TOTAL 0.4 mg/dL (0.2-1); MAGNESIUM 2.2 mg/dL (1.8-2.4)
[2020-10-19 13:45] VITALS: BP 104/70; PULSE 91; TEMP 98.2
[2020-10-20 08:08] LABS: LUTEINIZING HORMONE < 0.3 mIU/mL (.)
== END 2020-10-19 10:25 | disposition home or self-care (01) ==
LOC: JONCCHEMO 07:58
PROVIDERS: ATTEND Internal Medicine Hematology & Oncology
DX: Z51.11 Encounter for antineoplastic chemotherapy (principal); C50.911 Malignant neoplasm of unspecified site of right female breast
CPT/HCPCS: 36415; 80048; 80076; 82378; 82670; 83001; 83002; 83735; 84703; 85025; 86300; 96402; J9202

== ENCOUNTER 2020-11-16 06:57 | Day surgery (SDC) | payer OTHER ==
[2020-11-16] MEDS ORDERED: LIDOCAINE HCL 1%, 10 MG/ML (20ML VIAL) ID ONE (10:00)
[2020-11-16] MEDS ORDERED: GOSERELIN ACETATE 3.6 MG IMPLANT SYRINGE SQ ONE (10:00)
[2020-11-16 10:55] LABS: URINE APPEARANCE CLEAR; URINE BILIRUBIN NEGATIVE (NEGATIVE); URINE COLOR YELLOW; URINE GLUCOSE (UA) NEGATIVE (NEGATIVE); URINE KETONE NEGATIVE (NEGATIVE); URINE LEUK ESTERASE NEGATIVE (NEGATIVE); URINE NITRITE NEGATIVE (NEGATIVE); URINE PROTEIN NEGATIVE (NEGATIVE); URINE UROBILINOGEN 0.2 mg/dL (0.2-1.0)
[2020-11-16 11:15] LABS: BASO % 0.5 % (0-2.0); EOS % 3.3 % (0-4.5); HEMATOCRIT 38.3 % (32.4-45.2); HEMOGLOBIN 12.7 GM/dL (10.7-15.3); LYMPH % 33.3 % (8-40); MCH 29.7 pg (25.7-33.7); MCHC 33.3 g/dl (32.0-36.0); MEAN CELL VOLUME 89.3 fl (80-96); MEAN PLT VOLUME 8.8 fl (7.5-11.1); NEUT % 56.9 % (42.8-82.8); PLATELET COUNT 289 K/MM3 (134-434); RBC 4.29 M/mm3 (3.60-5.2); WHITE BLOOD COUNT 7.8 K/mm3 (4.0-10.0)
[2020-11-16 11:32] LABS: POTASSIUM 4.2 mmol/L (3.5-5.1)
[2020-11-16 11:39] LABS: ALBUMIN 3.6 g/dl (3.4-5.0); CALCIUM 9.7 mg/dL (8.5-10.1)
[2020-11-16 11:40] LABS: BLOOD UREA NITROGEN 16.2 mg/dL (7-18); MAGNESIUM 2.2 mg/dL (1.8-2.4)
[2020-11-16 11:42] LABS: BILIRUBIN,DIRECT 0.1 mg/dL (0.0-0.2)
[2020-11-16 11:43] LABS: CREATININE 0.6 mg/dL (0.55-1.3)
[2020-11-16 11:44] LABS: BILIRUBIN,TOTAL 0.3 mg/dL (0.2-1); TOT PROT 7.2 g/dl (6.4-8.2)
[2020-11-16 14:56] VITALS: BP 108/78; PULSE 77; TEMP 98.2
[2020-11-17 08:06] LABS: FOLLICLE STIMULATING HORMONE 7.4 mIU/mL (.); LUTEINIZING HORMONE < 0.3 mIU/mL (.)
== END 2020-11-16 12:00 | disposition home or self-care (01) ==
LOC: JONCCHEMO 06:57
PROVIDERS: ATTEND Internal Medicine Hematology & Oncology
DX: Z51.11 Encounter for antineoplastic chemotherapy (principal); C50.911 Malignant neoplasm of unspecified site of right female breast
CPT/HCPCS: 36415; 80048; 80076; 81003; 82378; 82670; 83001; 83002; 83036; 83735; 84703; 85025; 86300; 87086; 96402; J9202

== ENCOUNTER 2020-12-14 07:33 | Day surgery (SDC) | payer OTHER ==
[2020-12-14 09:59] LABS: BASO % 0.5 % (0-2.0); EOS % 1.6 % (0-4.5); HEMATOCRIT 37.6 % (32.4-45.2); HEMOGLOBIN 12.6 GM/dL (10.7-15.3); LYMPH % 38.5 % (8-40); MCH 29.4 pg (25.7-33.7); MCHC 33.6 g/dl (32.0-36.0); MEAN CELL VOLUME 87.6 fl (80-96); MEAN PLT VOLUME 8.6 fl (7.5-11.1); MONO % 5.4 % (3.8-10.2); PLATELET COUNT 295 K/MM3 (134-434); RBC 4.29 M/mm3 (3.60-5.2); WHITE BLOOD COUNT 6.6 K/mm3 (4.0-10.0)
[2020-12-14] MEDS ORDERED: GOSERELIN ACETATE 3.6 MG IMPLANT SYRINGE SQ ONE (10:00)
[2020-12-14] MEDS ORDERED: LIDOCAINE HCL 1%, 10 MG/ML (20ML VIAL) ID ONE (10:00)
[2020-12-14 10:20] LABS: CHLORIDE 104 mmol/L (98-107); POTASSIUM 4.2 mmol/L (3.5-5.1); SODIUM 138 mmol/L (136-145)
[2020-12-14 10:21] LABS: CALCIUM 9.6 mg/dL (8.5-10.1)
[2020-12-14 10:22] LABS: ALBUMIN 3.5 g/dl (3.4-5.0); ANION GAP 7 MMOL/L (8-16); BLOOD UREA NITROGEN 14.3 mg/dL (7-18); CO2 28 mmol/L (21-32); GLUCOSE,RANDOM 111 mg/dL (74-106); MAGNESIUM 2.3 mg/dL (1.8-2.4)
[2020-12-14 10:25] LABS: BILIRUBIN,DIRECT 0.1 mg/dL (0.0-0.2); CREATININE 0.6 mg/dL (0.55-1.3); SGOT/AST 22 U/L (15-37); SGPT/ALT 37 U/L (13-61)
[2020-12-14 10:26] LABS: BILIRUBIN,TOTAL 0.4 mg/dL (0.2-1)
[2020-12-14 10:27] LABS: TOT PROT 7.3 g/dl (6.4-8.2)
[2020-12-14 10:28] LABS: ALK PHOS 131 U/L (45-117)
[2020-12-14 12:47] VITALS: BP 108/76; PULSE 90; TEMP 98.7
[2020-12-15 10:07] LABS: FOLLICLE STIMULATING HORMONE 6.3 mIU/mL (.); LUTEINIZING HORMONE < 0.3 mIU/mL (.)
== END 2020-12-14 11:00 | disposition home or self-care (01) ==
LOC: JONCCHEMO 07:33
PROVIDERS: ATTEND Internal Medicine Hematology & Oncology
DX: Z51.11 Encounter for antineoplastic chemotherapy (principal); C50.911 Malignant neoplasm of unspecified site of right female breast
CPT/HCPCS: 36415; 80048; 80076; 82670; 83001; 83002; 83735; 84702; 85025; 96401; J9202

== ENCOUNTER 2021-01-11 07:29 | Day surgery (SDC) | payer OTHER ==
[2021-01-11] MEDS ORDERED: GOSERELIN ACETATE 3.6 MG IMPLANT SYRINGE SQ ONE (10:00)
[2021-01-11] MEDS ORDERED: LIDOCAINE HCL 1%, 10 MG/ML (20ML VIAL) ID ONE (10:00)
[2021-01-11 10:42] LABS: BASO % 0.6 % (0-2.0); EOS % 1.6 % (0-4.5); HEMATOCRIT 37.5 % (32.4-45.2); HEMOGLOBIN 12.5 GM/dL (10.7-15.3); MCH 28.9 pg (25.7-33.7); MCHC 33.3 g/dl (32.0-36.0); MEAN CELL VOLUME 86.9 fl (80-96); MEAN PLT VOLUME 8.9 fl (7.5-11.1); MONO % 5.1 % (3.8-10.2); NEUT % 50.7 % (42.8-82.8); PLATELET COUNT 295 K/MM3 (134-434); RBC 4.32 M/mm3 (3.60-5.2); RDW 14.3 % (11.6-15.6); WHITE BLOOD COUNT 7.1 K/mm3 (4.0-10.0)
[2021-01-11 10:58] LABS: POTASSIUM 4.2 mmol/L (3.5-5.1)
[2021-01-11 11:00] LABS: ALBUMIN 3.6 g/dl (3.4-5.0); CALCIUM 9.6 mg/dL (8.5-10.1); MAGNESIUM 2.2 mg/dL (1.8-2.4)
[2021-01-11 11:03] LABS: BILIRUBIN,DIRECT 0.2 mg/dL (0.0-0.2)
[2021-01-11 11:04] LABS: CREATININE 0.7 mg/dL (0.55-1.3)
[2021-01-11 11:05] LABS: BILIRUBIN,TOTAL 0.4 mg/dL (0.2-1); TOT PROT 7.3 g/dl (6.4-8.2)
[2021-01-11 15:29] VITALS: BP 119/73; PULSE 81; TEMP 98.2
[2021-01-12 23:07] LABS: FOLLICLE STIMULATING HORMONE 6.6 mIU/mL (.); LUTEINIZING HORMONE < 0.3 mIU/mL (.)
== END 2021-01-11 11:15 | disposition home or self-care (01) ==
LOC: JONCCHEMO 07:29
PROVIDERS: ATTEND Internal Medicine Hematology & Oncology
DX: Z51.11 Encounter for antineoplastic chemotherapy (principal); C50.811 Malignant neoplasm of overlapping sites of right female breast; E11.9 Type 2 diabetes mellitus without complications; Z79.4 Long term (current) use of insulin
CPT/HCPCS: 36415; 80048; 80076; 82670; 83001; 83002; 83735; 84703; 85025; 96402; J9202

== ENCOUNTER 2021-02-08 09:32 | Day surgery (SDC) | payer OTHER ==
[2021-02-08 09:50] LABS: BASO % 0.7 % (0-2.0); HEMATOCRIT 37.7 % (32.4-45.2); HEMOGLOBIN 12.8 GM/dL (10.7-15.3); LYMPH % 39.5 % (8-40); MCH 28.9 pg (25.7-33.7); MEAN CELL VOLUME 85.1 fl (80-96); MEAN PLT VOLUME 8.6 fl (7.5-11.1); MONO % 4.2 % (3.8-10.2); NEUT % 53.6 % (42.8-82.8); PLATELET COUNT 300 K/MM3 (134-434); RBC 4.43 M/mm3 (3.60-5.2); RDW 14.9 % (11.6-15.6); WHITE BLOOD COUNT 7.5 K/mm3 (4.0-10.0)
[2021-02-08] MEDS ORDERED: LIDOCAINE HCL 1%, 10 MG/ML (20ML VIAL) ID ONE (10:00)
[2021-02-08] MEDS ORDERED: GOSERELIN ACETATE 3.6 MG IMPLANT SYRINGE SQ ONE (10:00)
[2021-02-08 10:13] LABS: ALBUMIN 3.5 g/dl (3.4-5.0); BLOOD UREA NITROGEN 14.3 mg/dL (7-18); CALCIUM 9.1 mg/dL (8.5-10.1); MAGNESIUM 2.5 mg/dL (1.8-2.4)
[2021-02-08 10:17] LABS: BILIRUBIN,DIRECT 0.1 mg/dL (0.0-0.2); CREATININE 0.6 mg/dL (0.55-1.3)
[2021-02-08 10:18] LABS: BILIRUBIN,TOTAL 0.3 mg/dL (0.2-1); TOT PROT 7.2 g/dl (6.4-8.2)
[2021-02-08 14:59] VITALS: BP 102/61; PULSE 90; TEMP 98.1
[2021-02-10 08:06] LABS: FOLLICLE STIMULATING HORMONE 6.7 mIU/mL (.); LUTEINIZING HORMONE 0.6 mIU/mL (.)
== END 2021-02-08 10:45 | disposition home or self-care (01) ==
LOC: JONCCHEMO 09:32
PROVIDERS: ATTEND Internal Medicine Hematology & Oncology
DX: Z51.11 Encounter for antineoplastic chemotherapy (principal); C50.811 Malignant neoplasm of overlapping sites of right female breast
CPT/HCPCS: 36415; 80048; 80076; 82670; 83001; 83002; 83615; 83735; 84703; 85025; 96401; J9202

== ENCOUNTER 2021-03-08 09:26 | Day surgery (SDC) | payer OTHER ==
[2021-03-08] MEDS ORDERED: GOSERELIN ACETATE 3.6 MG IMPLANT SYRINGE SQ ONE (10:00)
[2021-03-08] MEDS ORDERED: LIDOCAINE HCL 1%, 10 MG/ML (20ML VIAL) ID ONE (10:00)
[2021-03-08 12:26] LABS: BASO % 0.4 % (0-2.0); EOS % 1.5 % (0-4.5); LYMPH % 39.4 % (8-40); MCH 28.6 pg (25.7-33.7); MCHC 33.4 g/dl (32.0-36.0); MEAN CELL VOLUME 85.6 fl (80-96); MEAN PLT VOLUME 8.7 fl (7.5-11.1); MONO % 5.1 % (3.8-10.2); NEUT % 53.6 % (42.8-82.8); PLATELET COUNT 275 K/MM3 (134-434); RBC 4.56 M/mm3 (3.60-5.2); RDW 15.1 % (11.6-15.6)
[2021-03-08 12:36] LABS: ALBUMIN 3.7 g/dl (3.4-5.0); BLOOD UREA NITROGEN 17.5 mg/dL (7-18)
[2021-03-08 12:37] LABS: MAGNESIUM 2.3 mg/dL (1.8-2.4)
[2021-03-08 12:39] LABS: BILIRUBIN,DIRECT 0.1 mg/dL (0.0-0.2); CREATININE 0.5 mg/dL (0.55-1.3)
[2021-03-08 12:41] LABS: BILIRUBIN,TOTAL 0.2 mg/dL (0.2-1); TOT PROT 7.5 g/dl (6.4-8.2)
[2021-03-08 15:21] VITALS: BP 120/84; PULSE 85; TEMP 97.5
[2021-03-10 10:07] LABS: FOLLICLE STIMULATING HORMONE 6.9 mIU/mL (.); LUTEINIZING HORMONE < 0.3 mIU/mL (.)
== END 2021-03-08 12:45 | disposition home or self-care (01) ==
LOC: JONCCHEMO 09:26
PROVIDERS: ATTEND Internal Medicine Hematology & Oncology
DX: Z51.11 Encounter for antineoplastic chemotherapy (principal); C50.811 Malignant neoplasm of overlapping sites of right female breast
CPT/HCPCS: 36415; 80048; 80076; 82670; 83001; 83002; 83735; 84703; 85025; 96402; J9202

== ENCOUNTER 2021-04-05 07:28 | Day surgery (SDC) | payer OTHER ==
[2021-04-05] MEDS ORDERED: LIDOCAINE HCL 1%, 10 MG/ML (20ML VIAL) ID ONE (10:00)
[2021-04-05] MEDS ORDERED: GOSERELIN ACETATE 3.6 MG IMPLANT SYRINGE SQ ONE (10:00)
[2021-04-05 10:08] LABS: BASO % 0.5 % (0-2.0); EOS % 1.9 % (0-4.5); HEMATOCRIT 37.2 % (32.4-45.2); HEMOGLOBIN 12.5 GM/dL (10.7-15.3); LYMPH % 39.3 % (8-40); MCH 28.5 pg (25.7-33.7); MCHC 33.6 g/dl (32.0-36.0); MEAN PLT VOLUME 8.3 fl (7.5-11.1); MONO % 5.6 % (3.8-10.2); NEUT % 52.7 % (42.8-82.8); PLATELET COUNT 285 10^3/uL (134-434); RBC 4.38 M/mm3 (3.60-5.2); RDW 15.4 % (11.6-15.6); WHITE BLOOD COUNT 6.9 K/mm3 (4.0-10.0)
[2021-04-05 10:23] LABS: CALCIUM 9.5 mg/dL (8.5-10.1)
[2021-04-05 10:24] LABS: ALBUMIN 3.8 g/dl (3.4-5.0); BLOOD UREA NITROGEN 21.2 mg/dL (7-18); MAGNESIUM 2.6 mg/dL (1.8-2.4)
[2021-04-05 10:27] LABS: BILIRUBIN,DIRECT 0.1 mg/dL (0.0-0.2); CREATININE 0.6 mg/dL (0.55-1.3)
[2021-04-05 10:29] LABS: BILIRUBIN,TOTAL 0.3 mg/dL (0.2-1); TOT PROT 7.2 g/dl (6.4-8.2)
[2021-04-05 15:31] VITALS: BP 137/80; PULSE 75; TEMP 98.3
[2021-04-06 07:07] LABS: FOLLICLE STIMULATING HORMONE 6.4 mIU/mL (.); LUTEINIZING HORMONE 0.3 mIU/mL (.)
== END 2021-04-05 10:45 | disposition home or self-care (01) ==
LOC: JONCCHEMO 07:28
PROVIDERS: ATTEND Internal Medicine Hematology & Oncology
DX: Z51.11 Encounter for antineoplastic chemotherapy (principal); C50.811 Malignant neoplasm of overlapping sites of right female breast
CPT/HCPCS: 36415; 80048; 80076; 82670; 83001; 83002; 83735; 84703; 85025; 96402; J9202

== ENCOUNTER 2021-05-03 06:49 | Day surgery (SDC) | payer OTHER ==
[2021-05-03] MEDS ORDERED: GOSERELIN ACETATE 3.6 MG IMPLANT SYRINGE SQ ONE (10:00)
[2021-05-03] MEDS ORDERED: LIDOCAINE HCL 1%, 10 MG/ML (20ML VIAL) ID ONE (10:00)
[2021-05-03 10:58] LABS: BASO % 0.7 % (0-2.0); EOS % 2.2 % (0-4.5); HEMOGLOBIN 12.5 GM/dL (10.7-15.3); LYMPH % 39.4 % (8-40); MCHC 32.9 g/dl (32.0-36.0); MEAN CELL VOLUME 85.1 fl (80-96); MEAN PLT VOLUME 8.4 fl (7.5-11.1); MONO % 5.8 % (3.8-10.2); NEUT % 51.9 % (42.8-82.8); PLATELET COUNT 289 10^3/uL (134-434); RBC 4.47 M/mm3 (3.60-5.2); RDW 15.2 % (11.6-15.6); WHITE BLOOD COUNT 6.8 K/mm3 (4.0-10.0)
[2021-05-03 11:13] LABS: BLOOD UREA NITROGEN 14.3 mg/dL (7-18); CALCIUM 9.1 mg/dL (8.5-10.1)
[2021-05-03 11:14] LABS: MAGNESIUM 2.5 mg/dL (1.8-2.4)
[2021-05-03 11:15] LABS: ALBUMIN 3.5 g/dl (3.4-5.0)
[2021-05-03 11:16] LABS: BILIRUBIN,DIRECT 0.1 mg/dL (0.0-0.2); CREATININE 0.6 mg/dL (0.55-1.3)
[2021-05-03 11:18] LABS: BILIRUBIN,TOTAL 0.4 mg/dL (0.2-1); TOT PROT 7.2 g/dl (6.4-8.2)
[2021-05-03 16:17] VITALS: BP 114/80; PULSE 81; TEMP 98.3
[2021-05-04 07:07] LABS: FOLLICLE STIMULATING HORMONE 6.7 mIU/mL (.); LUTEINIZING HORMONE < 0.3 mIU/mL (.)
== END 2021-05-03 10:50 | disposition home or self-care (01) ==
LOC: JONCCHEMO 06:49
PROVIDERS: ATTEND Internal Medicine Hematology & Oncology
DX: Z51.11 Encounter for antineoplastic chemotherapy (principal); C50.811 Malignant neoplasm of overlapping sites of right female breast
CPT/HCPCS: 36415; 80048; 80076; 82378; 82670; 83001; 83002; 83615; 83735; 84703; 85025; 86300; 96402; J9202

== ENCOUNTER 2021-05-04 08:13 | Emergency (ER) | payer OTHER ==
[2021-05-04] MEDS ORDERED: TETRACAINE 0.5% OPHTH SOLN 2 ML BOTTLE ONE (08:19)
[2021-05-04] MEDS ORDERED: FLUORESCEIN NA 1 EA STRIP ONE (08:20)
[2021-05-04 08:23] VITALS: BP 142/82; PULSE 83; TEMP 98; BMI 32.9
[2021-05-04] MEDS ORDERED: GENTAMICIN SULFATE 0.3% OPHTHALMIC (EYE DROPS) 5ML BOTTLE ONE (08:34)
[2021-05-04] MEDS ORDERED: FLUORESCEIN NA 1 EA STRIP OS ONE (08:44)
[2021-05-04] MEDS ORDERED: GENTAMICIN SULFATE 0.3% OPHTHALMIC (EYE DROPS) 5ML BOTTLE OS ONE (08:45)
[2021-05-04] MEDS ORDERED: TETRACAINE 0.5% HCL 0.6ML DROPPER.BOTTLE OS ONE (08:45)
== END 2021-05-04 09:02 | disposition home or self-care (01) ==
LOC: FER 08:13
DX: H10.212 Acute toxic conjunctivitis, left eye (principal)
CPT/HCPCS: 99283-25

== ENCOUNTER 2021-05-31 06:41 | Day surgery (SDC) | payer OTHER ==
[2021-05-31] MEDS ORDERED: GOSERELIN ACETATE 3.6 MG IMPLANT SYRINGE SQ ONE (10:00)
[2021-05-31] MEDS ORDERED: LIDOCAINE HCL 1%, 10 MG/ML (20ML VIAL) ID ONE (10:00)
[2021-05-31 10:32] LABS: BASO % 0.5 % (0-2.0); EOS % 2.2 % (0-4.5); HEMATOCRIT 37.3 % (32.4-45.2); HEMOGLOBIN 12.6 GM/dL (10.7-15.3); LYMPH % 37.1 % (8-40); MCH 28.5 pg (25.7-33.7); MCHC 33.8 g/dl (32.0-36.0); MEAN CELL VOLUME 84.4 fl (80-96); MEAN PLT VOLUME 8.3 fl (7.5-11.1); MONO % 5.1 % (3.8-10.2); NEUT % 55.1 % (42.8-82.8); PLATELET COUNT 258 10^3/uL (134-434); RBC 4.42 M/mm3 (3.60-5.2); RDW 15.3 % (11.6-15.6); WHITE BLOOD COUNT 7.4 K/mm3 (4.0-10.0)
[2021-05-31 10:44] LABS: ALBUMIN 3.5 g/dl (3.4-5.0); BLOOD UREA NITROGEN 13.1 mg/dL (7-18); MAGNESIUM 2.5 mg/dL (1.8-2.4)
[2021-05-31 10:46] LABS: BILIRUBIN,DIRECT 0.1 mg/dL (0.0-0.2)
[2021-05-31 10:47] LABS: CREATININE 0.5 mg/dL (0.55-1.3)
[2021-05-31 10:48] LABS: BILIRUBIN,TOTAL 0.3 mg/dL (0.2-1); TOT PROT 7.2 g/dl (6.4-8.2)
[2021-05-31 15:12] VITALS: BP 123/70; PULSE 91; TEMP 98.2
[2021-06-01 08:06] LABS: FOLLICLE STIMULATING HORMONE 5.7 mIU/mL (.); LUTEINIZING HORMONE < 0.3 mIU/mL (.)
[2021-06-01 08:06] LABS: CARCINOEMBRYONIC ANTIGEN 0.6 ng/mL (0.0-4.7)
== END 2021-05-31 11:20 | disposition home or self-care (01) ==
LOC: JONCCHEMO 06:41
PROVIDERS: ATTEND Internal Medicine Hematology & Oncology
DX: Z51.11 Encounter for antineoplastic chemotherapy (principal); C50.811 Malignant neoplasm of overlapping sites of right female breast
CPT/HCPCS: 36415; 80048; 80076; 82378; 82670; 83001; 83002; 83735; 84703; 85025; 96402; J9202

== ENCOUNTER 2021-07-12 07:28 | Day surgery (SDC) | payer OTHER ==
[2021-07-12] MEDS ORDERED: LIDOCAINE HCL 1%, 10 MG/ML (20ML VIAL) ID ONE (10:00)
[2021-07-12] MEDS ORDERED: GOSERELIN ACETATE 3.6 MG IMPLANT SYRINGE SQ ONE (10:00)
[2021-07-12 12:01] LABS: BASO % 0.5 % (0-2.0); HEMATOCRIT 38.3 % (32.4-45.2); HEMOGLOBIN 12.8 GM/dL (10.7-15.3); LYMPH % 40.2 % (8-40); MCH 28.8 pg (25.7-33.7); MCHC 33.4 g/dl (32.0-36.0); MEAN PLT VOLUME 8.5 fl (7.5-11.1); MONO % 4.4 % (3.8-10.2); NEUT % 52.9 % (42.8-82.8); PLATELET COUNT 300 10^3/uL (134-434); RBC 4.45 M/mm3 (3.60-5.2); RDW 15.1 % (11.6-15.6)
[2021-07-12 12:26] LABS: ALBUMIN 3.6 g/dl (3.4-5.0); BLOOD UREA NITROGEN 15.1 mg/dL (7-18); CALCIUM 9.1 mg/dL (8.5-10.1)
[2021-07-12 12:27] LABS: MAGNESIUM 2.1 mg/dL (1.8-2.4)
[2021-07-12 12:28] LABS: BILIRUBIN,DIRECT 0.2 mg/dL (0.0-0.2)
[2021-07-12 12:29] LABS: CREATININE 0.6 mg/dL (0.55-1.3)
[2021-07-12 12:30] LABS: BILIRUBIN,TOTAL 0.7 mg/dL (0.2-1); TOT PROT 7.7 g/dl (6.4-8.2)
[2021-07-12 17:19] VITALS: BP 119/74; PULSE 69; TEMP 98.1
[2021-07-13 08:06] LABS: FOLLICLE STIMULATING HORMONE 6.7 mIU/mL (.); LUTEINIZING HORMONE 0.4 mIU/mL (.)
== END 2021-07-12 12:20 | disposition home or self-care (01) ==
LOC: JONCCHEMO 07:28
PROVIDERS: ATTEND Internal Medicine Hematology & Oncology
DX: Z12.11 Encounter for screening for malignant neoplasm of colon (principal); C50.811 Malignant neoplasm of overlapping sites of right female breast
CPT/HCPCS: 36415; 80048; 80076; 82378; 82670; 83001; 83002; 83735; 84703; 85025; 86300; 96402; J9202

== ENCOUNTER 2021-08-09 07:45 | Day surgery (SDC) | payer OTHER ==
[2021-08-09] MEDS ORDERED: LIDOCAINE HCL 1%, 10 MG/ML (20ML VIAL) ID ONE (10:00)
[2021-08-09] MEDS ORDERED: GOSERELIN ACETATE 3.6 MG IMPLANT SYRINGE SQ ONE (10:00)
[2021-08-09 10:48] LABS: BASO % 0.5 % (0-2.0); EOS % 1.8 % (0-4.5); HEMOGLOBIN 12.6 GM/dL (10.7-15.3); LYMPH % 35.2 % (8-40); MCH 28.9 pg (25.7-33.7); MEAN PLT VOLUME 8.4 fl (7.5-11.1); NEUT % 57.5 % (42.8-82.8); PLATELET COUNT 300 10^3/uL (134-434); RBC 4.35 M/mm3 (3.60-5.2); RDW 14.9 % (11.6-15.6); WHITE BLOOD COUNT 7.4 K/mm3 (4.0-10.0)
[2021-08-09 11:10] LABS: CALCIUM 9.1 mg/dL (8.5-10.1)
[2021-08-09 11:11] LABS: ALBUMIN 3.2 g/dl (3.4-5.0); BLOOD UREA NITROGEN 22.3 mg/dL (7-18)
[2021-08-09 11:13] LABS: BILIRUBIN,DIRECT 0.1 mg/dL (0.0-0.2)
[2021-08-09 11:14] LABS: CREATININE 0.7 mg/dL (0.55-1.3)
[2021-08-09 11:15] LABS: BILIRUBIN,TOTAL 0.3 mg/dL (0.2-1); TOT PROT 7.4 g/dl (6.4-8.2)
[2021-08-09 14:34] VITALS: BP 123/74; PULSE 95; TEMP 98.1
[2021-08-10 08:06] LABS: FOLLICLE STIMULATING HORMONE 5.5 mIU/mL (.); LUTEINIZING HORMONE < 0.3 mIU/mL (.)
== END 2021-08-09 11:35 | disposition home or self-care (01) ==
LOC: JONCCHEMO 07:45
PROVIDERS: ATTEND Internal Medicine Hematology & Oncology
PROC: 3E013GC Introduction of Other Therapeutic Substance into Subcutaneous Tissue, Percutaneous Approach (ICD-10-PCS; principal; 2021-08-09)
DX: Z51.11 Encounter for antineoplastic chemotherapy (principal); C50.811 Malignant neoplasm of overlapping sites of right female breast
CPT/HCPCS: 36415; 80048; 80076; 82728; 83001; 83002; 83540; 83550; 83735; 84703; 85025; 96401; J9202

== ENCOUNTER 2021-09-13 07:57 | Day surgery (SDC) | payer OTHER ==
[2021-09-13] MEDS ORDERED: LIDOCAINE HCL 1%, 10 MG/ML (20ML VIAL) ID ONE (10:00)
[2021-09-13] MEDS ORDERED: GOSERELIN ACETATE 3.6 MG IMPLANT SYRINGE SQ ONE (10:00)
[2021-09-13 11:55] LABS: BASO % 0.4 % (0-2.0); EOS % 1.3 % (0-4.5); HEMATOCRIT 37.4 % (32.4-45.2); HEMOGLOBIN 12.7 GM/dL (10.7-15.3); LYMPH % 33.1 % (8-40); MCH 28.4 pg (25.7-33.7); MCHC 33.8 g/dl (32.0-36.0); MEAN CELL VOLUME 83.9 fl (80-96); MEAN PLT VOLUME 8.3 fl (7.5-11.1); MONO % 4.1 % (3.8-10.2); NEUT % 61.1 % (42.8-82.8); PLATELET COUNT 277 10^3/uL (134-434); RBC 4.46 M/mm3 (3.60-5.2); RDW 15.2 % (11.6-15.6); WHITE BLOOD COUNT 8.2 K/mm3 (4.0-10.0)
[2021-09-13 12:07] LABS: CALCIUM 9.4 mg/dL (8.5-10.1)
[2021-09-13 12:08] LABS: ALBUMIN 3.4 g/dl (3.4-5.0); MAGNESIUM 2.4 mg/dL (1.8-2.4)
[2021-09-13 12:10] LABS: CREATININE 0.6 mg/dL (0.55-1.3)
[2021-09-13 12:11] LABS: BILIRUBIN,DIRECT 0.2 mg/dL (0.0-0.2)
[2021-09-13 12:12] LABS: BILIRUBIN,TOTAL 0.4 mg/dL (0.2-1); TOT PROT 7.5 g/dl (6.4-8.2)
[2021-09-13 12:18] LABS: BLOOD UREA NITROGEN 14.3 mg/dL (7-18)
[2021-09-13 15:43] VITALS: BP 118/79; PULSE 92; TEMP 98.3
[2021-09-14 08:06] LABS: CARCINOEMBRYONIC ANTIGEN 0.6 ng/mL (0.0-4.7); FOLLICLE STIMULATING HORMONE 5.8 mIU/mL (.); LUTEINIZING HORMONE 0.3 mIU/mL (.)
== END 2021-09-13 12:35 | disposition home or self-care (01) ==
LOC: JONCCHEMO 07:57
PROVIDERS: ATTEND Internal Medicine Hematology & Oncology
DX: Z51.11 Encounter for antineoplastic chemotherapy (principal); C50.811 Malignant neoplasm of overlapping sites of right female breast
CPT/HCPCS: 36415; 80048; 80076; 82378; 82670; 83001; 83002; 83735; 84703; 85025; 86300; 96402; J9202

== ENCOUNTER 2021-10-18 08:18 | Day surgery (SDC) | payer OTHER ==
[2021-10-18] MEDS ORDERED: GOSERELIN ACETATE 3.6 MG IMPLANT SYRINGE SQ ONE (10:00)
[2021-10-18] MEDS ORDERED: LIDOCAINE HCL 1%, 10 MG/ML (20ML VIAL) ID ONE (10:00)
[2021-10-18 11:41] LABS: BASO % 0.5 % (0-2.0); EOS % 1.8 % (0-4.5); HEMATOCRIT 38.2 % (32.4-45.2); HEMOGLOBIN 12.4 GM/dL (10.7-15.3); LYMPH % 37.6 % (8-40); MCH 27.8 pg (25.7-33.7); MCHC 32.5 g/dl (32.0-36.0); MEAN CELL VOLUME 85.4 fl (80-96); MEAN PLT VOLUME 8.5 fl (7.5-11.1); MONO % 5.9 % (3.8-10.2); NEUT % 54.2 % (42.8-82.8); PLATELET COUNT 322 10^3/uL (134-434); RBC 4.47 M/mm3 (3.60-5.2); WHITE BLOOD COUNT 8.5 K/mm3 (4.0-10.0)
[2021-10-18 12:01] LABS: ALBUMIN 3.5 g/dl (3.4-5.0); BLOOD UREA NITROGEN 14.5 mg/dL (7-18); CALCIUM 9.2 mg/dL (8.5-10.1); MAGNESIUM 2.4 mg/dL (1.8-2.4)
[2021-10-18 12:04] LABS: BILIRUBIN,DIRECT 0.1 mg/dL (0.0-0.2); CREATININE 0.7 mg/dL (0.55-1.3)
[2021-10-18 12:06] LABS: BILIRUBIN,TOTAL 0.3 mg/dL (0.2-1); TOT PROT 7.2 g/dl (6.4-8.2)
[2021-10-18 16:27] VITALS: BP 126/79; PULSE 87; TEMP 98.1
[2021-10-20 08:06] LABS: CARCINOEMBRYONIC ANTIGEN 0.7 ng/mL (0.0-4.7); FOLLICLE STIMULATING HORMONE 6.2 mIU/mL (.); LUTEINIZING HORMONE < 0.3 mIU/mL (.)
== END 2021-10-18 12:50 | disposition home or self-care (01) ==
LOC: JONCCHEMO 08:18
PROVIDERS: ATTEND Internal Medicine Hematology & Oncology
DX: Z51.11 Encounter for antineoplastic chemotherapy (principal); C50.811 Malignant neoplasm of overlapping sites of right female breast
CPT/HCPCS: 36415; 80048; 80076; 82378; 82670; 83001; 83002; 83735; 84703; 85025; 86300; 96402; J9202

== ENCOUNTER 2021-11-15 08:10 | Day surgery (SDC) | payer OTHER ==
[2021-11-15] MEDS ORDERED: GOSERELIN ACETATE 3.6 MG IMPLANT SYRINGE SQ ONE (10:00)
[2021-11-15] MEDS ORDERED: LIDOCAINE HCL 1%, 10 MG/ML (20ML VIAL) ID ONE (10:00)
[2021-11-15 10:45] LABS: BASO % 0.7 % (0-2.0); EOS % 1.4 % (0-4.5); HEMATOCRIT 38.5 % (32.4-45.2); HEMOGLOBIN 12.5 GM/dL (10.7-15.3); LYMPH % 40.3 % (8-40); MCH 27.4 pg (25.7-33.7); MCHC 32.4 g/dl (32.0-36.0); MEAN CELL VOLUME 84.6 fl (80-96); MEAN PLT VOLUME 8.3 fl (7.5-11.1); MONO % 5.3 % (3.8-10.2); NEUT % 52.3 % (42.8-82.8); PLATELET COUNT 313 10^3/uL (134-434); RBC 4.55 M/mm3 (3.60-5.2); RDW 15.5 % (11.6-15.6); WHITE BLOOD COUNT 7.2 K/mm3 (4.0-10.0)
[2021-11-15 11:05] LABS: ALBUMIN 3.5 g/dl (3.4-5.0); MAGNESIUM 2.4 mg/dL (1.8-2.4)
[2021-11-15 11:06] LABS: BLOOD UREA NITROGEN 14.1 mg/dL (7-18)
[2021-11-15 11:07] LABS: BILIRUBIN,DIRECT 0.1 mg/dL (0.0-0.2)
[2021-11-15 11:08] LABS: CREATININE 0.7 mg/dL (0.55-1.3)
[2021-11-15 11:09] LABS: BILIRUBIN,TOTAL 0.3 mg/dL (0.2-1)
[2021-11-15 16:03] VITALS: BP 116/79; PULSE 106; TEMP 98.3
[2021-11-16 08:08] LABS: CARCINOEMBRYONIC ANTIGEN 0.5 ng/mL (0.0-4.7); FOLLICLE STIMULATING HORMONE 6.4 mIU/mL (.); LUTEINIZING HORMONE 0.3 mIU/mL (.)
== END 2021-11-15 12:00 | disposition home or self-care (01) ==
LOC: JONCCHEMO 08:10
PROVIDERS: ATTEND Internal Medicine Hematology & Oncology
DX: Z51.11 Encounter for antineoplastic chemotherapy (principal); C50.811 Malignant neoplasm of overlapping sites of right female breast
CPT/HCPCS: 36415; 80048; 80076; 82378; 82670; 82728; 83001; 83002; 83540; 83550; 83735; 84703; 85025; 86300; 96402; J9202

== ENCOUNTER 2021-12-13 07:16 | Day surgery (SDC) | payer OTHER ==
[2021-12-13] MEDS ORDERED: GOSERELIN ACETATE 3.6 MG IMPLANT SYRINGE SQ ONE (10:00)
[2021-12-13] MEDS ORDERED: LIDOCAINE HCL 1%, 10 MG/ML (20ML VIAL) ID ONE (10:00)
[2021-12-13 11:39] LABS: BASO % 0.7 % (0-2.0); EOS % 1.9 % (0-4.5); HEMATOCRIT 39.1 % (32.4-45.2); HEMOGLOBIN 12.7 GM/dL (10.7-15.3); LYMPH % 36.7 % (8-40); MCH 27.9 pg (25.7-33.7); MCHC 32.4 g/dl (32.0-36.0); MEAN CELL VOLUME 86.1 fl (80-96); MEAN PLT VOLUME 8.8 fl (7.5-11.1); MONO % 5.7 % (3.8-10.2); PLATELET COUNT 304 10^3/uL (134-434); RBC 4.54 M/mm3 (3.60-5.2); RDW 15.9 % (11.6-15.6); WHITE BLOOD COUNT 7.8 K/mm3 (4.0-10.0)
[2021-12-13 11:54] VITALS: BP 141/69; PULSE 87; TEMP 98.1
[2021-12-13 12:08] LABS: BLOOD UREA NITROGEN 17.9 mg/dL (7-18); CALCIUM 9.1 mg/dL (8.5-10.1)
[2021-12-13 12:09] LABS: ALBUMIN 3.5 g/dl (3.4-5.0); MAGNESIUM 2.3 mg/dL (1.8-2.4)
[2021-12-13 12:11] LABS: BILIRUBIN,DIRECT 0.2 mg/dL (0.0-0.2)
[2021-12-13 12:12] LABS: CREATININE 0.7 mg/dL (0.55-1.3)
[2021-12-13 12:13] LABS: BILIRUBIN,TOTAL 0.4 mg/dL (0.2-1); TOT PROT 6.8 g/dl (6.4-8.2)
[2021-12-14 07:09] LABS: FOLLICLE STIMULATING HORMONE 6.8 mIU/mL (.); LUTEINIZING HORMONE < 0.3 mIU/mL (.)
== END 2021-12-13 11:15 | disposition home or self-care (01) ==
LOC: JONCCHEMO 07:16
PROVIDERS: ATTEND Internal Medicine Hematology & Oncology
DX: Z51.11 Encounter for antineoplastic chemotherapy (principal); C50.911 Malignant neoplasm of unspecified site of right female breast
CPT/HCPCS: 36415; 80048; 80076; 82670; 83001; 83002; 83735; 84703; 85025; 86300; 96401; J9202

== ENCOUNTER 2022-01-10 07:12 | Day surgery (SDC) | payer OTHER ==
[2022-01-10] MEDS ORDERED: GOSERELIN ACETATE 3.6 MG IMPLANT SYRINGE SQ ONE (10:00)
[2022-01-10] MEDS ORDERED: LIDOCAINE HCL 1%, 10 MG/ML (20ML VIAL) ID ONE (10:00)
[2022-01-10 10:55] LABS: BASO % 0.8 % (0-2.0); EOS % 1.6 % (0-4.5); HEMATOCRIT 38.3 % (32.4-45.2); HEMOGLOBIN 12.8 GM/dL (10.7-15.3); LYMPH % 36.4 % (8-40); MCHC 33.3 g/dl (32.0-36.0); MEAN CELL VOLUME 84.2 fl (80-96); MEAN PLT VOLUME 8.3 fl (7.5-11.1); MONO % 6.2 % (3.8-10.2); PLATELET COUNT 279 10^3/uL (134-434); RBC 4.55 M/mm3 (3.60-5.2); RDW 15.4 % (11.6-15.6); WHITE BLOOD COUNT 7.1 K/mm3 (4.0-10.0)
[2022-01-10 11:20] LABS: ALBUMIN 3.4 g/dl (3.4-5.0); CALCIUM 9.6 mg/dL (8.5-10.1); MAGNESIUM 2.5 mg/dL (1.8-2.4)
[2022-01-10 11:23] LABS: BILIRUBIN,DIRECT 0.1 mg/dL (0.0-0.2); CREATININE 0.6 mg/dL (0.55-1.3)
[2022-01-10 11:25] LABS: BILIRUBIN,TOTAL 0.4 mg/dL (0.2-1)
[2022-01-10 16:45] VITALS: BP 122/81; PULSE 82; TEMP 98.3
[2022-01-12 08:09] LABS: FOLLICLE STIMULATING HORMONE 5.5 mIU/mL (.); LUTEINIZING HORMONE < 0.3 mIU/mL (.)
== END 2022-01-10 12:00 | disposition home or self-care (01) ==
LOC: JONCCHEMO 07:12
PROVIDERS: ATTEND Internal Medicine Hematology & Oncology
DX: Z51.11 Encounter for antineoplastic chemotherapy (principal); C50.911 Malignant neoplasm of unspecified site of right female breast
CPT/HCPCS: 36415; 80048; 80076; 82670; 83001; 83002; 83735; 84703; 85025; 96401; J9202

== ENCOUNTER 2022-02-14 06:48 | Day surgery (SDC) | payer OTHER ==
[2022-02-14] MEDS ORDERED: LIDOCAINE HCL 1%, 10 MG/ML (20ML VIAL) ID ONE (10:00)
[2022-02-14] MEDS ORDERED: ZOLEDRONIC ACID/MAN/WATER 5 MG/100 ML INFUS..BTL IVPB ONE (10:00)
[2022-02-14] MEDS ORDERED: GOSERELIN ACETATE 3.6 MG IMPLANT SYRINGE SQ ONE (10:00)
[2022-02-14 10:44] LABS: BASO % 0.8 % (0-2.0); EOS % 1.5 % (0-4.5); HEMATOCRIT 37.5 % (32.4-45.2); HEMOGLOBIN 12.7 GM/dL (10.7-15.3); LYMPH % 37.2 % (8-40); MCH 28.6 pg (25.7-33.7); MEAN CELL VOLUME 84.1 fl (80-96); MEAN PLT VOLUME 8.2 fl (7.5-11.1); MONO % 6.6 % (3.8-10.2); NEUT % 53.9 % (42.8-82.8); PLATELET COUNT 269 10^3/uL (134-434); RBC 4.46 M/mm3 (3.60-5.2); RDW 15.2 % (11.6-15.6); WHITE BLOOD COUNT 6.8 K/mm3 (4.0-10.0)
[2022-02-14 10:52] LABS: CALCIUM 9.6 mg/dL (8.5-10.1)
[2022-02-14 10:53] LABS: BLOOD UREA NITROGEN 12.6 mg/dL (7-18); MAGNESIUM 2.6 mg/dL (1.8-2.4)
[2022-02-14 10:54] LABS: ALBUMIN 3.4 g/dl (3.4-5.0)
[2022-02-14 10:56] LABS: CREATININE 0.6 mg/dL (0.55-1.3)
[2022-02-14 10:57] LABS: BILIRUBIN,DIRECT 0.1 mg/dL (0.0-0.2)
[2022-02-14 10:59] LABS: BILIRUBIN,TOTAL 0.3 mg/dL (0.2-1); TOT PROT 6.9 g/dl (6.4-8.2)
[2022-02-14 16:47] VITALS: BP 113/65; PULSE 82; TEMP 98.3
[2022-02-15 08:07] LABS: FOLLICLE STIMULATING HORMONE 5.8 mIU/mL (.); LUTEINIZING HORMONE < 0.3 mIU/mL (.)
== END 2022-02-14 12:00 | disposition home or self-care (01) ==
LOC: JONCCHEMO 06:48
PROVIDERS: ATTEND Internal Medicine Hematology & Oncology
PROC: 3E033GC Introduction of Other Therapeutic Substance into Peripheral Vein, Percutaneous Approach (ICD-10-PCS; principal; 2022-02-14)
PROC: 3E01305 Introduction of Other Antineoplastic into Subcutaneous Tissue, Percutaneous Approach (ICD-10-PCS; 2022-02-14)
DX: Z51.11 Encounter for antineoplastic chemotherapy (principal); C50.911 Malignant neoplasm of unspecified site of right female breast
CPT/HCPCS: 36415; 80048; 80076; 82378; 82670; 82728; 83001; 83002; 83540; 83550; 83735; 84703; 85025; 86300; 96365; 96402; J3489; J9202

== ENCOUNTER 2022-03-20 06:37 | Day surgery (SDC) | payer OTHER ==
[2022-03-20] MEDS ORDERED: LIDOCAINE HCL 1%, 10 MG/ML (20ML VIAL) ID ONE (10:00)
[2022-03-20] MEDS ORDERED: GOSERELIN ACETATE 3.6 MG IMPLANT SYRINGE SQ ONE (10:00)
[2022-03-20 11:15] VITALS: BP 118/71; PULSE 83; TEMP 98.3
[2022-03-20 11:32] LABS: URINE APPEARANCE CLEAR; URINE BILIRUBIN NEGATIVE (NEGATIVE); URINE COLOR YELLOW; URINE GLUCOSE (UA) NEGATIVE (NEGATIVE); URINE KETONE 1+ (NEGATIVE); URINE LEUK ESTERASE NEGATIVE (NEGATIVE); URINE NITRITE NEGATIVE (NEGATIVE); URINE PROTEIN NEGATIVE (NEGATIVE); URINE UROBILINOGEN 0.2 mg/dL (0.2-1.0)
[2022-03-20 11:32] LABS: BASO % 0.6 % (0-2.0); EOS % 1.5 % (0-4.5); HEMATOCRIT 39.1 % (32.4-45.2); HEMOGLOBIN 12.8 GM/dL (10.7-15.3); LYMPH % 36.1 % (8-40); MCH 27.8 pg (25.7-33.7); MCHC 32.9 g/dl (32.0-36.0); MEAN CELL VOLUME 84.5 fl (80-96); MEAN PLT VOLUME 8.1 fl (7.5-11.1); MONO % 4.7 % (3.8-10.2); NEUT % 57.1 % (42.8-82.8); PLATELET COUNT 310 10^3/uL (134-434); RBC 4.62 M/mm3 (3.60-5.2); RDW 14.7 % (11.6-15.6); WHITE BLOOD COUNT 7.6 K/mm3 (4.0-10.0)
[2022-03-20 11:51] LABS: ALBUMIN 3.8 g/dl (3.4-5.0); CALCIUM 8.4 mg/dL (8.5-10.1)
[2022-03-20 11:52] LABS: BLOOD UREA NITROGEN 11.1 mg/dL (7-18); MAGNESIUM 2.7 mg/dL (1.8-2.4)
[2022-03-20 11:54] LABS: BILIRUBIN,DIRECT 0.2 mg/dL (0.0-0.2)
[2022-03-20 11:55] LABS: CREATININE 0.7 mg/dL (0.55-1.3)
[2022-03-20 11:56] LABS: BILIRUBIN,TOTAL 0.5 mg/dL (0.2-1); TOT PROT 7.2 g/dl (6.4-8.2)
[2022-03-21 08:06] LABS: FOLLICLE STIMULATING HORMONE 5.8 mIU/mL (.); LUTEINIZING HORMONE 0.3 mIU/mL (.)
== END 2022-03-20 12:20 | disposition home or self-care (01) ==
LOC: JONCCHEMO 06:37
PROVIDERS: ATTEND Internal Medicine Hematology & Oncology
DX: Z51.11 Encounter for antineoplastic chemotherapy (principal); C50.911 Malignant neoplasm of unspecified site of right female breast
CPT/HCPCS: 36415; 80048; 80076; 81003; 82378; 82670; 82728; 83001; 83002; 83540; 83550; 83735; 84703; 85025; 86300; 87086; 96402; J9202

== ENCOUNTER 2022-04-18 07:00 | Day surgery (SDC) | payer OTHER ==
[2022-04-18] MEDS ORDERED: GOSERELIN ACETATE 3.6 MG IMPLANT SYRINGE SQ ONE (10:00)
[2022-04-18] MEDS ORDERED: LIDOCAINE HCL 1%, 10 MG/ML (20ML VIAL) ID ONE (10:00)
[2022-04-18 11:40] LABS: BASO % 0.6 % (0-2.0); EOS % 1.3 % (0-4.5); HEMATOCRIT 39.1 % (32.4-45.2); LYMPH % 35.4 % (8-40); MCH 28.3 pg (25.7-33.7); MCHC 33.2 g/dl (32.0-36.0); MEAN CELL VOLUME 85.1 fl (80-96); MEAN PLT VOLUME 8.4 fl (7.5-11.1); MONO % 5.8 % (3.8-10.2); NEUT % 56.9 % (42.8-82.8); PLATELET COUNT 271 10^3/uL (134-434); RDW 15.7 % (11.6-15.6); WHITE BLOOD COUNT 5.6 K/mm3 (4.0-10.0)
[2022-04-18 11:58] LABS: ALBUMIN 3.6 g/dl (3.4-5.0); BLOOD UREA NITROGEN 18.4 mg/dL (7-18); CALCIUM 9.6 mg/dL (8.5-10.1)
[2022-04-18 11:59] LABS: MAGNESIUM 2.4 mg/dL (1.8-2.4)
[2022-04-18 12:01] LABS: BILIRUBIN,DIRECT 0.2 mg/dL (0.0-0.2); CREATININE 0.7 mg/dL (0.55-1.3)
[2022-04-18 12:03] LABS: BILIRUBIN,TOTAL 0.4 mg/dL (0.2-1); TOT PROT 6.8 g/dl (6.4-8.2)
[2022-04-18 16:37] VITALS: BP 118/76; PULSE 72; TEMP 97.9
[2022-04-19 10:08] LABS: FOLLICLE STIMULATING HORMONE 6.2 mIU/mL (.); LUTEINIZING HORMONE 0.5 mIU/mL (.)
== END 2022-04-18 12:30 | disposition home or self-care (01) ==
LOC: JONCCHEMO 07:00
PROVIDERS: ATTEND Internal Medicine Hematology & Oncology
DX: Z51.11 Encounter for antineoplastic chemotherapy (principal); C50.911 Malignant neoplasm of unspecified site of right female breast
CPT/HCPCS: 36415; 80048; 80076; 82378; 82670; 83001; 83002; 83735; 84703; 85025; 86300; 96402; J9202

== ENCOUNTER 2022-05-14 04:30 | Day surgery (SDC) | payer OTHER ==
[2022-05-14] MEDS ORDERED: KETAMINE HCL 200 MG/20 ML VIAL ONE (06:55)
[2022-05-14 07:22] VITALS: BMI 43.5
[2022-05-14 08:28] VITALS: TEMP 98
[2022-05-14 09:28] VITALS: BP 122/78; PULSE 66; RESP 18
== END 2022-05-14 09:05 | disposition home or self-care (01) ==
LOC: JASU-ENDO 04:30
PROVIDERS: ATTEND Internal Medicine Gastroenterology
PROC: 0DJD8ZZ Inspection of Lower Intestinal Tract, Via Natural or Artificial Opening Endoscopic (ICD-10-PCS; principal; 2022-05-14 08:00)
DX: Z12.11 Encounter for screening for malignant neoplasm of colon (principal); K64.8 Other hemorrhoids; E11.9 Type 2 diabetes mellitus without complications; Z79.84 Long term (current) use of oral hypoglycemic drugs; Z85.3 Personal history of malignant neoplasm of breast
CPT/HCPCS: 81025; 82962

== ENCOUNTER 2022-05-16 06:48 | Day surgery (SDC) | payer OTHER ==
[2022-05-16] MEDS ORDERED: GOSERELIN ACETATE 3.6 MG IMPLANT SYRINGE SQ ONE (10:00)
[2022-05-16] MEDS ORDERED: LIDOCAINE HCL 1%, 10 MG/ML (20ML VIAL) ID ONE (10:00)
[2022-05-16 12:03] LABS: BASO % 0.7 % (0-2.0); EOS % 2.6 % (0-4.5); HEMATOCRIT 38.6 % (32.4-45.2); HEMOGLOBIN 12.7 GM/dL (10.7-15.3); MCH 28.1 pg (25.7-33.7); MCHC 32.9 g/dl (32.0-36.0); MEAN CELL VOLUME 85.2 fl (80-96); MEAN PLT VOLUME 8.8 fl (7.5-11.1); MONO % 6.8 % (3.8-10.2); NEUT % 50.9 % (42.8-82.8); PLATELET COUNT 266 10^3/uL (134-434); RBC 4.53 M/mm3 (3.60-5.2); RDW 15.6 % (11.6-15.6); WHITE BLOOD COUNT 6.6 K/mm3 (4.0-10.0)
[2022-05-16 12:21] LABS: CALCIUM 9.1 mg/dL (8.5-10.1)
[2022-05-16 12:22] LABS: ALBUMIN 3.9 g/dl (3.4-5.0); BLOOD UREA NITROGEN 15.4 mg/dL (7-18); MAGNESIUM 2.3 mg/dL (1.8-2.4)
[2022-05-16 12:24] LABS: BILIRUBIN,DIRECT 0.2 mg/dL (0.0-0.2)
[2022-05-16 12:25] LABS: CREATININE 0.6 mg/dL (0.55-1.3)
[2022-05-16 12:26] LABS: BILIRUBIN,TOTAL 0.4 mg/dL (0.2-1); TOT PROT 7.2 g/dl (6.4-8.2)
[2022-05-16 13:53] VITALS: BP 131/85; PULSE 75; RESP 18; TEMP 98.2
[2022-05-17 08:08] LABS: CARCINOEMBRYONIC ANTIGEN 0.9 ng/mL (0.0-4.7); LUTEINIZING HORMONE < 0.3 mIU/mL (.)
== END 2022-05-16 13:56 | disposition home or self-care (01) ==
LOC: JONCCHEMO 06:48
PROVIDERS: ATTEND Internal Medicine Hematology & Oncology
DX: Z51.11 Encounter for antineoplastic chemotherapy (principal); C50.919 Malignant neoplasm of unspecified site of unspecified female breast
CPT/HCPCS: 36415; 80048; 80076; 82378; 82670; 83001; 83002; 83735; 84703; 85025; 86300; 96402; J9202

== ENCOUNTER 2022-06-13 07:32 | Day surgery (SDC) | payer OTHER ==
[2022-06-13] MEDS ORDERED: LIDOCAINE HCL 1%, 10 MG/ML (20ML VIAL) ID ONE (10:00)
[2022-06-13] MEDS ORDERED: GOSERELIN ACETATE 3.6 MG IMPLANT SYRINGE SQ ONE (10:00)
[2022-06-13 12:19] LABS: BASO % 0.8 % (0-2.0); EOS % 1.8 % (0-4.5); HEMATOCRIT 38.8 % (32.4-45.2); HEMOGLOBIN 12.6 GM/dL (10.7-15.3); LYMPH % 42.7 % (8-40); MCH 27.7 pg (25.7-33.7); MCHC 32.4 g/dl (32.0-36.0); MEAN CELL VOLUME 85.4 fl (80-96); MEAN PLT VOLUME 8.7 fl (7.5-11.1); MONO % 5.3 % (3.8-10.2); NEUT % 49.4 % (42.8-82.8); PLATELET COUNT 265 10^3/uL (134-434); RBC 4.55 M/mm3 (3.60-5.2); WHITE BLOOD COUNT 6.7 K/mm3 (4.0-10.0)
[2022-06-13 12:34] LABS: ALBUMIN 3.7 g/dl (3.4-5.0); CALCIUM 8.8 mg/dL (8.5-10.1); MAGNESIUM 2.4 mg/dL (1.8-2.4)
[2022-06-13 12:37] LABS: CREATININE 0.6 mg/dL (0.55-1.3)
[2022-06-13 12:38] LABS: BILIRUBIN,DIRECT 0.1 mg/dL (0.0-0.2)
[2022-06-13 12:39] LABS: BILIRUBIN,TOTAL 0.3 mg/dL (0.2-1); TOT PROT 7.2 g/dl (6.4-8.2)
[2022-06-13 17:53] VITALS: BP 143/80; PULSE 69; RESP 18; TEMP 97.6
[2022-06-14 10:07] LABS: FOLLICLE STIMULATING HORMONE 6.6 mIU/mL (.); LUTEINIZING HORMONE < 0.3 mIU/mL (.)
== END 2022-06-13 13:00 | disposition home or self-care (01) ==
LOC: JONCCHEMO 07:32
PROVIDERS: ATTEND Internal Medicine Hematology & Oncology
DX: Z51.11 Encounter for antineoplastic chemotherapy (principal); C50.919 Malignant neoplasm of unspecified site of unspecified female breast
CPT/HCPCS: 36415; 80048; 80076; 82378; 82670; 83001; 83002; 83735; 84703; 85025; 86300; 96402; J9202

== ENCOUNTER 2022-06-25 05:31 | Day surgery (SDC) | payer OTHER ==
[2022-06-24 08:08] VITALS: BMI 38.4
[2022-06-25 09:07] VITALS: TEMP 97
[2022-06-25 09:50] VITALS: BP 151/82; PULSE 66; RESP 15
== END 2022-06-25 09:45 | disposition home or self-care (01) ==
LOC: JASU-ENDO 05:31
PROVIDERS: ATTEND Internal Medicine Gastroenterology
PROC: 0DB78ZX Excision of Stomach, Pylorus, Via Natural or Artificial Opening Endoscopic, Diagnostic (ICD-10-PCS; 2022-06-25)
PROC: 0DB28ZX Excision of Middle Esophagus, Via Natural or Artificial Opening Endoscopic, Diagnostic (ICD-10-PCS; 2022-06-25)
PROC: 0DB48ZX Excision of Esophagogastric Junction, Via Natural or Artificial Opening Endoscopic, Diagnostic (ICD-10-PCS; principal; 2022-06-25 08:45)
DX: K29.50 Unspecified chronic gastritis without bleeding (principal); K21.9 Gastro-esophageal reflux disease without esophagitis; E11.9 Type 2 diabetes mellitus without complications; Z79.84 Long term (current) use of oral hypoglycemic drugs
CPT/HCPCS: 81025; 88305-TC; 88342-TC

== ENCOUNTER 2022-07-11 10:39 | Day surgery (SDC) | payer OTHER ==
[2022-07-11 11:14] LABS: BASO % 0.7 % (0-2.0); HEMATOCRIT 37.9 % (32.4-45.2); HEMOGLOBIN 12.4 GM/dL (10.7-15.3); LYMPH % 40.2 % (8-40); MCHC 32.7 g/dl (32.0-36.0); MEAN CELL VOLUME 85.7 fl (80-96); MEAN PLT VOLUME 8.3 fl (7.5-11.1); MONO % 7.3 % (3.8-10.2); NEUT % 49.8 % (42.8-82.8); PLATELET COUNT 331 10^3/uL (134-434); RBC 4.42 M/mm3 (3.60-5.2); RDW 15.3 % (11.6-15.6); WHITE BLOOD COUNT 7.6 K/mm3 (4.0-10.0)
[2022-07-11 11:36] LABS: ALBUMIN 3.7 g/dl (3.4-5.0); CALCIUM 9.2 mg/dL (8.5-10.1); MAGNESIUM 2.7 mg/dL (1.8-2.4)
[2022-07-11 11:39] LABS: BILIRUBIN,DIRECT 0.2 mg/dL (0.0-0.2); CREATININE 0.7 mg/dL (0.55-1.3)
[2022-07-11 11:41] LABS: TOT PROT 7.1 g/dl (6.4-8.2)
[2022-07-11 11:42] LABS: BILIRUBIN,TOTAL 0.6 mg/dL (0.2-1)
[2022-07-11 12:20] VITALS: BP 117/71; PULSE 75; RESP 18; TEMP 97.8
[2022-07-13 08:06] LABS: CARCINOEMBRYONIC ANTIGEN 0.9 ng/mL (0.0-4.7); LUTEINIZING HORMONE < 0.3 mIU/mL (.)
== END 2022-07-11 11:40 | disposition home or self-care (01) ==
LOC: JONCCHEMO 10:39
PROVIDERS: ATTEND Internal Medicine Hematology & Oncology
PROC: 3E01305 Introduction of Other Antineoplastic into Subcutaneous Tissue, Percutaneous Approach (ICD-10-PCS; principal; 2022-07-11)
PROC: 3E013GC Introduction of Other Therapeutic Substance into Subcutaneous Tissue, Percutaneous Approach (ICD-10-PCS; 2022-07-11)
DX: Z51.11 Encounter for antineoplastic chemotherapy (principal); C50.919 Malignant neoplasm of unspecified site of unspecified female breast
CPT/HCPCS: 36415; 72040-TC; 73030-TC-RT-FY; 80048; 80076; 82306; 82378; 82670; 83001; 83002; 83735; 84703; 85025; 86300; 96372; 96402; J9202

== ENCOUNTER 2022-08-08 10:47 | Day surgery (SDC) | payer OTHER ==
[2022-08-08 11:50] LABS: BASO % 0.5 % (0-2.0); HEMATOCRIT 38.6 % (32.4-45.2); LYMPH % 39.7 % (8-40); MCH 29.1 pg (25.7-33.7); MCHC 33.8 g/dl (32.0-36.0); MEAN CELL VOLUME 86.2 fl (80-96); MEAN PLT VOLUME 8.3 fl (7.5-11.1); MONO % 5.9 % (3.8-10.2); NEUT % 51.9 % (42.8-82.8); PLATELET COUNT 313 10^3/uL (134-434); RBC 4.47 M/mm3 (3.60-5.2); RDW 15.2 % (11.6-15.6); WHITE BLOOD COUNT 7.8 K/mm3 (4.0-10.0)
[2022-08-08 12:08] LABS: ALBUMIN 3.6 g/dl (3.4-5.0); CALCIUM 8.9 mg/dL (8.5-10.1)
[2022-08-08 12:09] LABS: BLOOD UREA NITROGEN 18.3 mg/dL (7-18); MAGNESIUM 2.6 mg/dL (1.8-2.4)
[2022-08-08 12:11] LABS: BILIRUBIN,DIRECT 0.1 mg/dL (0.0-0.2); CREATININE 0.6 mg/dL (0.55-1.3)
[2022-08-08 12:13] LABS: BILIRUBIN,TOTAL 0.3 mg/dL (0.2-1); TOT PROT 7.3 g/dl (6.4-8.2)
[2022-08-08 12:29] VITALS: BP 122/75; PULSE 81; RESP 18; TEMP 97.8
[2022-08-09 08:07] LABS: CARCINOEMBRYONIC ANTIGEN 1.1 ng/mL (0.0-4.7); FOLLICLE STIMULATING HORMONE 5.8 mIU/mL (.); LUTEINIZING HORMONE < 0.3 mIU/mL (.)
== END 2022-08-08 12:38 | disposition home or self-care (01) ==
LOC: JONCCHEMO 10:47
PROVIDERS: ATTEND Internal Medicine Hematology & Oncology
DX: Z51.11 Encounter for antineoplastic chemotherapy (principal); C50.919 Malignant neoplasm of unspecified site of unspecified female breast
CPT/HCPCS: 36415; 80048; 80076; 82378; 82670; 83001; 83002; 83735; 84703; 85025; 86300; 96402; J9202

== ENCOUNTER 2022-09-04 13:17 | Day surgery (SDC) | payer OTHER ==
[2022-09-04 13:55] LABS: BASO % 0.3 % (0-2.0); HEMATOCRIT 36.8 % (32.4-45.2); LYMPH % 32.4 % (8-40); MCH 28.3 pg (25.7-33.7); MCHC 32.7 g/dl (32.0-36.0); MEAN CELL VOLUME 86.3 fl (80-96); MEAN PLT VOLUME 8.6 fl (7.5-11.1); MONO % 4.6 % (3.8-10.2); NEUT % 61.7 % (42.8-82.8); PLATELET COUNT 294 10^3/uL (134-434); RBC 4.26 M/mm3 (3.60-5.2); WHITE BLOOD COUNT 9.3 K/mm3 (4.0-10.0)
[2022-09-04 14:14] LABS: ALBUMIN 3.5 g/dl (3.4-5.0); BLOOD UREA NITROGEN 17.4 mg/dL (7-18); MAGNESIUM 2.4 mg/dL (1.8-2.4)
[2022-09-04 14:17] LABS: BILIRUBIN,DIRECT 0.2 mg/dL (0.0-0.2); CREATININE 0.6 mg/dL (0.55-1.3)
[2022-09-04 14:19] LABS: BILIRUBIN,TOTAL 0.3 mg/dL (0.2-1); TOT PROT 6.8 g/dl (6.4-8.2)
[2022-09-04 15:37] VITALS: BP 110/68; PULSE 91; RESP 20; TEMP 97.8
[2022-09-05 10:07] LABS: FOLLICLE STIMULATING HORMONE 6.6 mIU/mL (.); LUTEINIZING HORMONE < 0.3 mIU/mL (.)
[2022-09-05 15:08] LABS: CARCINOEMBRYONIC ANTIGEN 1.1 ng/mL (0.0-4.7)
== END 2022-09-04 14:30 | disposition home or self-care (01) ==
LOC: JONCCHEMO 13:17
PROVIDERS: ATTEND Internal Medicine Hematology & Oncology
DX: Z51.11 Encounter for antineoplastic chemotherapy (principal); C50.919 Malignant neoplasm of unspecified site of unspecified female breast
CPT/HCPCS: 36415; 80048; 80076; 82378; 82670; 83001; 83002; 83735; 84703; 85025; 86300; 96402; J9202

== ENCOUNTER 2022-10-01 10:32 | Day surgery (SDC) | payer OTHER ==
[2022-10-01 11:38] LABS: BASO % 0.5 % (0-2.0); EOS % 1.7 % (0-4.5); HEMATOCRIT 39.7 % (32.4-45.2); HEMOGLOBIN 12.9 GM/dL (10.7-15.3); LYMPH % 35.5 % (8-40); MCH 27.9 pg (25.7-33.7); MCHC 32.5 g/dl (32.0-36.0); MEAN CELL VOLUME 85.8 fl (80-96); MEAN PLT VOLUME 8.4 fl (7.5-11.1); MONO % 4.8 % (3.8-10.2); NEUT % 57.5 % (42.8-82.8); PLATELET COUNT 328 10^3/uL (134-434); RBC 4.63 M/mm3 (3.60-5.2); RDW 14.6 % (11.6-15.6); WHITE BLOOD COUNT 8.8 K/mm3 (4.0-10.0)
[2022-10-01 12:01] LABS: CALCIUM 9.4 mg/dL (8.5-10.1)
[2022-10-01 12:02] LABS: ALBUMIN 3.6 g/dl (3.4-5.0); MAGNESIUM 2.4 mg/dL (1.8-2.4)
[2022-10-01 12:04] LABS: BILIRUBIN,DIRECT 0.1 mg/dL (0.0-0.2)
[2022-10-01 12:05] LABS: CREATININE 0.6 mg/dL (0.55-1.3)
[2022-10-01 12:06] LABS: TOT PROT 7.4 g/dl (6.4-8.2)
[2022-10-01 12:07] LABS: BILIRUBIN,TOTAL 0.5 mg/dL (0.2-1)
[2022-10-01 17:31] VITALS: BP 118/80; PULSE 88; RESP 18; TEMP 98.2
[2022-10-02 08:31] LABS: FOLLICLE STIMULATING HORMONE 5.4 mIU/mL (.); LUTEINIZING HORMONE < 0.3 mIU/mL (.)
== END 2022-10-01 12:00 | disposition home or self-care (01) ==
LOC: JONCCHEMO 10:32
PROVIDERS: ATTEND Internal Medicine Hematology & Oncology
DX: Z51.11 Encounter for antineoplastic chemotherapy (principal); C50.919 Malignant neoplasm of unspecified site of unspecified female breast
CPT/HCPCS: 36415; 80048; 80076; 82378; 82670; 83001; 83002; 83735; 84703; 85025; 86300; 96402; J9202

== ENCOUNTER 2022-10-03 14:14 | Emergency (ER) | payer OTHER ==
[2022-10-03 14:38] VITALS: BP 147/90; RESP 16; TEMP 98.5; BMI 33.3
[2022-10-03 14:56] VITALS: PULSE 105
== END 2022-10-03 15:06 | disposition home or self-care (01) ==
LOC: FER 14:14
DX: J06.9 Acute upper respiratory infection, unspecified (principal)
CPT/HCPCS: 0241U-QW; 99283-25

== ENCOUNTER 2022-10-31 10:24 | Day surgery (SDC) | payer OTHER ==
[~2022-10-31 10:24] MED LIST changes: +LIDOCAINE 1% P/F 10 MG/ML VIAL ID ONE; -LIDOCAINE HCL 1%, 10 MG/ML (20ML VIAL) ID ONE
[2022-10-31 11:29] LABS: BASO % 0.7 % (0-2.0); EOS % 1.4 % (0-4.5); HEMATOCRIT 39.1 % (32.4-45.2); HEMOGLOBIN 12.8 GM/dL (10.7-15.3); LYMPH % 40.7 % (8-40); MCH 28.1 pg (25.7-33.7); MCHC 32.8 g/dl (32.0-36.0); MEAN CELL VOLUME 85.8 fl (80-96); MEAN PLT VOLUME 8.7 fl (7.5-11.1); MONO % 4.9 % (3.8-10.2); NEUT % 52.3 % (42.8-82.8); PLATELET COUNT 282 10^3/uL (134-434); RBC 4.55 M/mm3 (3.60-5.2); RDW 14.5 % (11.6-15.6); WHITE BLOOD COUNT 7.9 K/mm3 (4.0-10.0)
[2022-10-31 11:51] LABS: ALBUMIN 3.8 g/dl (3.4-5.0)
[2022-10-31 11:52] LABS: CALCIUM 8.9 mg/dL (8.5-10.1)
[2022-10-31 11:53] LABS: BILIRUBIN,DIRECT 0.1 mg/dL (0.0-0.2); BLOOD UREA NITROGEN 24.4 mg/dL (7-18); MAGNESIUM 2.3 mg/dL (1.8-2.4)
[2022-10-31 11:55] LABS: BILIRUBIN,TOTAL 0.2 mg/dL (0.2-1); TOT PROT 7.3 g/dl (6.4-8.2)
[2022-10-31 11:56] LABS: CREATININE 0.7 mg/dL (0.55-1.3)
[2022-10-31 17:56] VITALS: BP 123/62; PULSE 83; RESP 18; TEMP 97.6
== END 2022-10-31 11:45 | disposition home or self-care (01) ==
LOC: JONCCHEMO 10:24
PROVIDERS: ATTEND Internal Medicine Hematology & Oncology
DX: Z51.11 Encounter for antineoplastic chemotherapy (principal); C50.919 Malignant neoplasm of unspecified site of unspecified female breast
CPT/HCPCS: 36415; 80048; 80076; 82378; 82670; 83735; 84703; 85025; 86300; 96402; J9202

== ENCOUNTER 2022-11-28 10:05 | Day surgery (SDC) | payer OTHER ==
[~2022-11-28 10:05] MED LIST changes: -GOSERELIN ACETATE 3.6 MG IMPLANT SYRINGE SQ ONE; -LIDOCAINE 1% P/F 10 MG/ML VIAL ID ONE; +LIDOCAINE HCL 1%, 10 MG/ML (20ML VIAL) ID ONE
[2022-11-28] MEDS ORDERED: GOSERELIN ACETATE 3.6 MG IMPLANT SYRINGE SQ ONE (10:30)
[2022-11-28 14:35] VITALS: BP 123/83; PULSE 76; RESP 20; TEMP 97.7
== END 2022-11-28 12:00 | disposition home or self-care (01) ==
LOC: JONCCHEMO 10:05
PROVIDERS: ATTEND Internal Medicine Hematology & Oncology
DX: Z51.11 Encounter for antineoplastic chemotherapy (principal); C50.811 Malignant neoplasm of overlapping sites of right female breast
CPT/HCPCS: 84703; 96402; J9202

== ENCOUNTER 2022-12-26 10:03 | Day surgery (SDC) | payer OTHER ==
[~2022-12-26 10:03] MED LIST changes: +GOSERELIN ACETATE 3.6 MG IMPLANT SYRINGE SQ ONE
[2022-12-26 10:52] LABS: BASO % 0.6 % (0-2.0); EOS % 1.6 % (0-4.5); HEMATOCRIT 39.8 % (32.4-45.2); HEMOGLOBIN 12.8 GM/dL (10.7-15.3); LYMPH % 42.3 % (8-40); MCH 27.2 pg (25.7-33.7); MCHC 32.1 g/dl (32.0-36.0); MEAN CELL VOLUME 84.7 fl (80-96); MEAN PLT VOLUME 7.8 fl (7.5-11.1); MONO % 6.5 % (3.8-10.2); PLATELET COUNT 331 10^3/uL (134-434); WHITE BLOOD COUNT 8.5 K/mm3 (4.0-10.0)
[2022-12-26 11:21] LABS: ALBUMIN 3.4 g/dl (3.4-5.0); CALCIUM 8.5 mg/dL (8.5-10.1); MAGNESIUM 2.3 mg/dL (1.8-2.4)
[2022-12-26 11:24] LABS: BILIRUBIN,DIRECT 0.2 mg/dL (0.0-0.2); CREATININE 0.7 mg/dL (0.55-1.3)
[2022-12-26 11:26] LABS: BILIRUBIN,TOTAL 0.4 mg/dL (0.2-1); TOT PROT 7.1 g/dl (6.4-8.2)
[2022-12-26 16:08] VITALS: BP 117/67; PULSE 72; RESP 18; TEMP 97.9
[2022-12-28 07:08] LABS: CARCINOEMBRYONIC ANTIGEN 0.8 ng/mL (0.0-4.7)
[2022-12-28 08:18] LABS: FOLLICLE STIMULATING HORMONE 5.3 mIU/mL (.); LUTEINIZING HORMONE < 0.3 mIU/mL (.)
== END 2022-12-26 11:20 | disposition home or self-care (01) ==
LOC: JONCCHEMO 10:03
PROVIDERS: ATTEND Internal Medicine Hematology & Oncology
DX: Z51.11 Encounter for antineoplastic chemotherapy (principal); C50.911 Malignant neoplasm of unspecified site of right female breast
CPT/HCPCS: 36415; 80048; 80076; 82378; 82670; 83001; 83002; 83735; 84703; 85025; 86300; 96402; J9202

== ENCOUNTER 2023-01-23 10:23 | Day surgery (SDC) | payer OTHER ==
[2023-01-23 11:37] LABS: BASO % 0.6 % (0-2.0); HEMATOCRIT 36.3 % (32.4-45.2); HEMOGLOBIN 12.3 GM/dL (10.7-15.3); LYMPH % 38.1 % (8-40); MCH 28.4 pg (25.7-33.7); MCHC 33.9 g/dl (32.0-36.0); MEAN CELL VOLUME 83.8 fl (80-96); MEAN PLT VOLUME 8.2 fl (7.5-11.1); MONO % 7.7 % (3.8-10.2); NEUT % 51.6 % (42.8-82.8); PLATELET COUNT 275 10^3/uL (134-434); RBC 4.33 M/mm3 (3.60-5.2); RDW 16.2 % (11.6-15.6); WHITE BLOOD COUNT 5.8 K/mm3 (4.0-10.0)
[2023-01-23 11:59] LABS: BLOOD UREA NITROGEN 14.2 mg/dL (7-18)
[2023-01-23 12:00] LABS: ALBUMIN 3.5 g/dl (3.4-5.0); CALCIUM 8.8 mg/dL (8.5-10.1)
[2023-01-23 12:01] LABS: MAGNESIUM 2.2 mg/dL (1.8-2.4)
[2023-01-23 12:02] LABS: BILIRUBIN,DIRECT 0.2 mg/dL (0.0-0.2); CREATININE 0.6 mg/dL (0.55-1.3)
[2023-01-23 12:04] LABS: BILIRUBIN,TOTAL 0.4 mg/dL (0.2-1); TOT PROT 6.9 g/dl (6.4-8.2)
[2023-01-23 14:31] VITALS: BP 130/72; PULSE 70; RESP 19; TEMP 98.1
[2023-01-24 08:48] LABS: CARCINOEMBRYONIC ANTIGEN 0.8 ng/mL (0.0-4.7); FOLLICLE STIMULATING HORMONE 5.3 mIU/mL (.); LUTEINIZING HORMONE < 0.3 mIU/mL (.)
== END 2023-01-23 11:15 | disposition home or self-care (01) ==
LOC: JONCCHEMO 10:23
PROVIDERS: ATTEND Internal Medicine Hematology & Oncology
DX: Z51.11 Encounter for antineoplastic chemotherapy (principal); C50.911 Malignant neoplasm of unspecified site of right female breast
CPT/HCPCS: 36415; 80048; 80076; 82378; 82670; 83001; 83002; 83735; 84703; 85025; 86300; 96402; J9202

== ENCOUNTER 2023-02-20 10:05 | Day surgery (SDC) | payer OTHER ==
[2023-02-20 10:45] LABS: BASO % 0.6 % (0-2.0); EOS % 2.3 % (0-4.5); HEMATOCRIT 36.1 % (32.4-45.2); HEMOGLOBIN 12.2 GM/dL (10.7-15.3); LYMPH % 43.6 % (8-40); MCH 28.2 pg (25.7-33.7); MCHC 33.7 g/dl (32.0-36.0); MEAN CELL VOLUME 83.9 fl (80-96); MEAN PLT VOLUME 8.5 fl (7.5-11.1); MONO % 7.3 % (3.8-10.2); NEUT % 46.2 % (42.8-82.8); PLATELET COUNT 285 10^3/uL (134-434); RBC 4.31 M/mm3 (3.60-5.2); RDW 15.5 % (11.6-15.6); WHITE BLOOD COUNT 6.5 K/mm3 (4.0-10.0)
[2023-02-20 11:01] LABS: POTASSIUM 4.2 mmol/L (3.5-5.1)
[2023-02-20 11:03] LABS: BLOOD UREA NITROGEN 13.7 mg/dL (7-18); CALCIUM 8.7 mg/dL (8.5-10.1)
[2023-02-20 11:04] LABS: ALBUMIN 3.5 g/dl (3.4-5.0); MAGNESIUM 2.2 mg/dL (1.8-2.4)
[2023-02-20 11:07] LABS: BILIRUBIN,DIRECT 0.1 mg/dL (0.0-0.2); CREATININE 0.6 mg/dL (0.55-1.3)
[2023-02-20 11:08] LABS: BILIRUBIN,TOTAL 0.4 mg/dL (0.2-1)
[2023-02-20 16:39] VITALS: BP 121/72; PULSE 83; RESP 18; TEMP 98.1
[2023-02-21 08:15] LABS: FOLLICLE STIMULATING HORMONE 5.4 mIU/mL (.); LUTEINIZING HORMONE < 0.3 mIU/mL (.)
== END 2023-02-20 11:00 | disposition home or self-care (01) ==
LOC: JONCCHEMO 10:05 → J7W 10:09 → JONCCHEMO 11:00
PROVIDERS: ATTEND Internal Medicine Hematology & Oncology
DX: Z51.11 Encounter for antineoplastic chemotherapy (principal); C50.919 Malignant neoplasm of unspecified site of unspecified female breast
CPT/HCPCS: 36415; 80048; 80076; 82670; 83001; 83002; 83735; 84703; 85025; 96402; J9202

== ENCOUNTER 2023-03-20 11:41 | Day surgery (SDC) | payer OTHER ==
[2023-03-20 13:02] LABS: BASO % 0.7 % (0-2.0); EOS % 1.6 % (0-4.5); HEMATOCRIT 38.8 % (32.4-45.2); HEMOGLOBIN 12.6 GM/dL (10.7-15.3); LYMPH % 42.9 % (8-40); MCH 27.7 pg (25.7-33.7); MCHC 32.4 g/dl (32.0-36.0); MEAN CELL VOLUME 85.3 fl (80-96); MEAN PLT VOLUME 9.5 fl (7.5-11.1); MONO % 5.2 % (3.8-10.2); NEUT % 49.6 % (42.8-82.8); PLATELET COUNT 298 10^3/uL (134-434); RBC 4.55 M/mm3 (3.60-5.2); RDW 14.7 % (11.6-15.6); WHITE BLOOD COUNT 7.1 K/mm3 (4.0-10.0)
[2023-03-20 13:29] LABS: POTASSIUM 4.4 mmol/L (3.5-5.1)
[2023-03-20 13:32] LABS: ALBUMIN 3.8 g/dl (3.4-5.0); BLOOD UREA NITROGEN 13.4 mg/dL (7-18); MAGNESIUM 2.6 mg/dL (1.8-2.4)
[2023-03-20 13:34] LABS: BILIRUBIN,DIRECT 0.1 mg/dL (0.0-0.2)
[2023-03-20 13:35] LABS: CREATININE 0.6 mg/dL (0.55-1.3)
[2023-03-20 13:36] LABS: BILIRUBIN,TOTAL 0.4 mg/dL (0.2-1); TOT PROT 7.4 g/dl (6.4-8.2)
[2023-03-20 16:19] VITALS: BP 115/71; PULSE 67; RESP 18; TEMP 98.4
[2023-03-21 08:07] LABS: FOLLICLE STIMULATING HORMONE 4.6 mIU/mL (.); LUTEINIZING HORMONE 0.5 mIU/mL (.)
== END 2023-03-20 12:15 | disposition home or self-care (01) ==
LOC: JONCCHEMO 11:41 → J7W 11:42 → JONCCHEMO 12:15
PROVIDERS: ATTEND Internal Medicine Hematology & Oncology
DX: Z51.11 Encounter for antineoplastic chemotherapy (principal); C50.911 Malignant neoplasm of unspecified site of right female breast
CPT/HCPCS: 36415; 80048; 80076; 82378; 82670; 83001; 83002; 83735; 84703; 85025; 96402; J9202

== ENCOUNTER 2023-04-17 11:33 | Day surgery (SDC) | payer OTHER ==
[2023-04-17 12:02] LABS: BASO % 0.5 % (0-2.0); EOS % 2.1 % (0-4.5); HEMATOCRIT 38.7 % (32.4-45.2); HEMOGLOBIN 12.7 GM/dL (10.7-15.3); LYMPH % 39.2 % (8-40); MCH 27.7 pg (25.7-33.7); MCHC 32.8 g/dl (32.0-36.0); MEAN CELL VOLUME 84.3 fl (80-96); MEAN PLT VOLUME 8.3 fl (7.5-11.1); NEUT % 53.2 % (42.8-82.8); PLATELET COUNT 286 10^3/uL (134-434); RBC 4.58 M/mm3 (3.60-5.2); RDW 15.3 % (11.6-15.6); WHITE BLOOD COUNT 7.3 K/mm3 (4.0-10.0)
[2023-04-17 12:24] LABS: POTASSIUM 4.3 mmol/L (3.5-5.1)
[2023-04-17 12:26] LABS: CALCIUM 9.4 mg/dL (8.5-10.1)
[2023-04-17 12:27] LABS: ALBUMIN 3.7 g/dl (3.4-5.0); BLOOD UREA NITROGEN 16.3 mg/dL (7-18); MAGNESIUM 2.4 mg/dL (1.8-2.4)
[2023-04-17 12:29] LABS: BILIRUBIN,DIRECT 0.1 mg/dL (0.0-0.2)
[2023-04-17 12:30] LABS: CREATININE 0.7 mg/dL (0.55-1.3)
[2023-04-17 12:31] LABS: TOT PROT 7.2 g/dl (6.4-8.2)
[2023-04-17 12:32] LABS: BILIRUBIN,TOTAL 0.4 mg/dL (0.2-1)
[2023-04-17 16:40] VITALS: BP 118/67; PULSE 80; RESP 18; TEMP 97.8
[2023-04-18 08:07] LABS: FOLLICLE STIMULATING HORMONE 4.8 mIU/mL (.); LUTEINIZING HORMONE 0.6 mIU/mL (.)
== END 2023-04-17 12:15 | disposition home or self-care (01) ==
LOC: JONCCHEMO 11:33 → J7W 12:27
PROVIDERS: ATTEND Internal Medicine Hematology & Oncology
DX: Z51.11 Encounter for antineoplastic chemotherapy (principal); C50.911 Malignant neoplasm of unspecified site of right female breast
CPT/HCPCS: 36415; 80053; 80076; 82306; 82378; 82607; 82670; 83001; 83002; 83735; 84703; 85025; 86300; 96402; J9202

== ENCOUNTER 2023-05-15 10:58 | Day surgery (SDC) | payer OTHER ==
[~2023-05-15 10:58] MED LIST changes: +ZOLEDRONIC ACID/MAN/WATER 5 MG/100 ML INFUS..BTL IVPB ONE
[2023-05-15 12:14] LABS: BASO % 0.6 % (0-2.0); HEMATOCRIT 40.4 % (32.4-45.2); HEMOGLOBIN 13.3 GM/dL (10.7-15.3); LYMPH % 40.5 % (8-40); MCH 27.6 pg (25.7-33.7); MCHC 32.9 g/dl (32.0-36.0); MEAN PLT VOLUME 8.6 fl (7.5-11.1); MONO % 5.7 % (3.8-10.2); NEUT % 51.2 % (42.8-82.8); PLATELET COUNT 288 10^3/uL (134-434); RBC 4.81 M/mm3 (3.60-5.2); RDW 15.6 % (11.6-15.6); WHITE BLOOD COUNT 6.7 K/mm3 (4.0-10.0)
[2023-05-15 12:37] LABS: POTASSIUM 4.8 mmol/L (3.5-5.1)
[2023-05-15 12:39] LABS: CALCIUM 9.7 mg/dL (8.5-10.1)
[2023-05-15 12:40] LABS: ALBUMIN 3.8 g/dl (3.4-5.0); BLOOD UREA NITROGEN 15.9 mg/dL (7-18); MAGNESIUM 2.8 mg/dL (1.8-2.4)
[2023-05-15 12:43] LABS: CREATININE 0.8 mg/dL (0.55-1.3)
[2023-05-15 12:44] LABS: TOT PROT 7.4 g/dl (6.4-8.2)
[2023-05-15 12:45] LABS: BILIRUBIN,TOTAL 0.4 mg/dL (0.2-1)
[2023-05-15 12:47] LABS: BILIRUBIN,DIRECT 0.1 mg/dL (0.0-0.2)
[2023-05-15 17:09] VITALS: BP 129/81; PULSE 79; RESP 20; TEMP 97.8
[2023-05-16 08:09] LABS: FOLLICLE STIMULATING HORMONE 4.8 mIU/mL (.); LUTEINIZING HORMONE 0.5 mIU/mL (.)
== END 2023-05-15 13:40 | disposition home or self-care (01) ==
LOC: JONCCHEMO 10:58 → J7W 11:21 → JONCCHEMO 13:40
PROVIDERS: ATTEND Internal Medicine Hematology & Oncology
PROC: 3E01305 Introduction of Other Antineoplastic into Subcutaneous Tissue, Percutaneous Approach (ICD-10-PCS; principal; 2023-05-15)
PROC: 3E033GC Introduction of Other Therapeutic Substance into Peripheral Vein, Percutaneous Approach (ICD-10-PCS; 2023-05-15)
DX: Z51.11 Encounter for antineoplastic chemotherapy (principal); C50.111 Malignant neoplasm of central portion of right female breast; Z17.0 Estrogen receptor positive status [ER+]; M85.80 Other specified disorders of bone density and structure, unspecified site
CPT/HCPCS: 36415; 80053; 80076; 82306; 82378; 82670; 83001; 83002; 83735; 85025; 86300; 96365; 96402; J3489; J9202

== ENCOUNTER 2023-06-12 12:24 | Day surgery (SDC) | payer OTHER ==
[~2023-06-12 12:24] MED LIST changes: -ZOLEDRONIC ACID/MAN/WATER 5 MG/100 ML INFUS..BTL IVPB ONE
[2023-06-12 13:48] LABS: BASO % 0.6 % (0-2.0); EOS % 3.9 % (0-4.5); HEMATOCRIT 40.3 % (32.4-45.2); LYMPH % 38.7 % (8-40); MCHC 32.2 g/dl (32.0-36.0); MEAN CELL VOLUME 86.8 fl (80-96); MONO % 5.4 % (3.8-10.2); NEUT % 51.4 % (42.8-82.8); PLATELET COUNT 311 10^3/uL (134-434); RBC 4.64 M/mm3 (3.60-5.2); RDW 15.4 % (11.6-15.6); WHITE BLOOD COUNT 7.9 K/mm3 (4.0-10.0)
[2023-06-12 13:49] LABS: URINE APPEARANCE CLEAR; URINE BILIRUBIN NEGATIVE (NEGATIVE); URINE COLOR YELLOW; URINE GLUCOSE (UA) NEGATIVE (NEGATIVE); URINE KETONE NEGATIVE (NEGATIVE); URINE LEUK ESTERASE NEGATIVE (NEGATIVE); URINE NITRITE NEGATIVE (NEGATIVE); URINE PROTEIN NEGATIVE (NEGATIVE); URINE UROBILINOGEN 0.2 mg/dL (0.2-1.0)
[2023-06-12 14:16] LABS: POTASSIUM 4.2 mmol/L (3.5-5.1)
[2023-06-12 14:18] LABS: ALBUMIN 3.6 g/dl (3.4-5.0); BLOOD UREA NITROGEN 15.8 mg/dL (7-18); CALCIUM 8.6 mg/dL (8.5-10.1); MAGNESIUM 2.2 mg/dL (1.8-2.4)
[2023-06-12 14:21] LABS: BILIRUBIN,DIRECT 0.1 mg/dL (0.0-0.2); CREATININE 0.6 mg/dL (0.55-1.3)
[2023-06-12 14:23] LABS: BILIRUBIN,TOTAL 0.3 mg/dL (0.2-1); TOT PROT 7.3 g/dl (6.4-8.2)
[2023-06-12 18:07] VITALS: BP 131/83; PULSE 68; RESP 20; TEMP 97.8
[2023-06-13 08:08] LABS: FOLLICLE STIMULATING HORMONE 5.4 mIU/mL (.); LUTEINIZING HORMONE < 0.3 mIU/mL (.)
== END 2023-06-12 13:30 | disposition home or self-care (01) ==
LOC: JONCCHEMO 12:24
PROVIDERS: ATTEND Internal Medicine Hematology & Oncology
DX: Z51.11 Encounter for antineoplastic chemotherapy (principal); C50.911 Malignant neoplasm of unspecified site of right female breast
CPT/HCPCS: 36415; 80053; 80076; 81003; 82306; 82378; 82670; 83001; 83002; 83735; 84703; 85025; 86300; 87086; 96402; J9202

== ENCOUNTER 2023-08-07 12:48 | Day surgery (SDC) | payer OTHER ==
[2023-08-07 13:23] LABS: BASO % 0.7 % (0-2.0); HEMATOCRIT 39.5 % (32.4-45.2); HEMOGLOBIN 13.1 GM/dL (10.7-15.3); LYMPH % 37.3 % (8-40); MCH 28.2 pg (25.7-33.7); MCHC 33.3 g/dl (32.0-36.0); MEAN CELL VOLUME 84.6 fl (80-96); MEAN PLT VOLUME 8.4 fl (7.5-11.1); MONO % 5.3 % (3.8-10.2); NEUT % 53.7 % (42.8-82.8); PLATELET COUNT 320 10^3/uL (134-434); RBC 4.67 M/mm3 (3.60-5.2); RDW 15.4 % (11.6-15.6); WHITE BLOOD COUNT 8.3 K/mm3 (4.0-10.0)
[2023-08-07] MEDS ORDERED: MAGNESIUM SULF 50% (8.12 MEQ/2 ML-1 GM VIAL) ONE (13:25)
[2023-08-07 13:48] LABS: POTASSIUM 4.4 mmol/L (3.5-5.1)
[2023-08-07 13:52] LABS: ALBUMIN 3.9 g/dl (3.4-5.0); BLOOD UREA NITROGEN 13.8 mg/dL (7-18); CALCIUM 9.6 mg/dL (8.5-10.1)
[2023-08-07 13:53] LABS: MAGNESIUM 2.6 mg/dL (1.8-2.4)
[2023-08-07 13:56] LABS: BILIRUBIN,DIRECT 0.1 mg/dL (0.0-0.2); CREATININE 0.7 mg/dL (0.55-1.3)
[2023-08-07 13:57] LABS: BILIRUBIN,TOTAL 0.4 mg/dL (0.2-1)
[2023-08-07 13:58] LABS: TOT PROT 7.4 g/dl (6.4-8.2)
[2023-08-07 15:48] VITALS: BP 108/61; PULSE 54; RESP 20; TEMP 98.3
[2023-08-08 08:11] LABS: CARCINOEMBRYONIC ANTIGEN 0.7 ng/mL (0.0-4.7)
[2023-08-08 10:11] LABS: FOLLICLE STIMULATING HORMONE 4.9 mIU/mL (.); LUTEINIZING HORMONE < 0.3 mIU/mL (.)
== END 2023-08-07 13:30 | disposition home or self-care (01) ==
LOC: JONCCHEMO 12:48 → J7W 12:49 → JONCCHEMO 13:30
PROVIDERS: ATTEND Internal Medicine Hematology & Oncology
DX: Z51.11 Encounter for antineoplastic chemotherapy (principal); C50.919 Malignant neoplasm of unspecified site of unspecified female breast
CPT/HCPCS: 36415; 80053; 80076; 82306; 82378; 82670; 83001; 83002; 83735; 84436; 84439; 84443; 84703; 85025; 86300; 96402; J9202

== ENCOUNTER 2023-09-10 11:38 | Day surgery (SDC) | payer OTHER ==
[2023-09-10 12:39] LABS: BASO % 0.5 % (0-2.0); EOS % 1.9 % (0-4.5); HEMATOCRIT 39.7 % (32.4-45.2); HEMOGLOBIN 12.8 GM/dL (10.7-15.3); LYMPH % 36.2 % (8-40); MCHC 32.3 g/dl (32.0-36.0); MEAN CELL VOLUME 86.9 fl (80-96); MEAN PLT VOLUME 8.5 fl (7.5-11.1); MONO % 5.3 % (3.8-10.2); NEUT % 56.1 % (42.8-82.8); PLATELET COUNT 301 10^3/uL (134-434); RBC 4.56 M/mm3 (3.60-5.2); RDW 15.2 % (11.6-15.6); WHITE BLOOD COUNT 9.8 K/mm3 (4.0-10.0)
[2023-09-10 13:10] LABS: POTASSIUM 4.1 mmol/L (3.5-5.1)
[2023-09-10 13:15] LABS: ALBUMIN 3.6 g/dl (3.4-5.0); CALCIUM 9.2 mg/dL (8.5-10.1); MAGNESIUM 2.5 mg/dL (1.8-2.4)
[2023-09-10 13:17] LABS: BILIRUBIN,DIRECT 0.2 mg/dL (0.0-0.2)
[2023-09-10 13:18] LABS: CREATININE 0.7 mg/dL (0.55-1.3)
[2023-09-10 13:20] LABS: BILIRUBIN,TOTAL 0.4 mg/dL (0.2-1); TOT PROT 7.4 g/dl (6.4-8.2)
[2023-09-10 13:25] LABS: BLOOD UREA NITROGEN 19.3 mg/dL (7-18)
[2023-09-10 17:05] VITALS: BP 105/73; PULSE 80; RESP 18; TEMP 98.1
[2023-09-12 03:07] LABS: FOLLICLE STIMULATING HORMONE 4.3 mIU/mL (.); LUTEINIZING HORMONE < 0.3 mIU/mL (.)
== END 2023-09-10 12:30 | disposition home or self-care (01) ==
LOC: JONCCHEMO 11:38 → J7W 11:39 → JONCCHEMO 12:30
PROVIDERS: ATTEND Internal Medicine Hematology & Oncology
DX: Z51.11 Encounter for antineoplastic chemotherapy (principal); C50.911 Malignant neoplasm of unspecified site of right female breast
CPT/HCPCS: 36415; 80053; 80076; 82306; 82378; 83001; 83002; 83735; 84703; 85025; 86300; 96402; J9202

== ENCOUNTER 2023-10-16 10:55 | Day surgery (SDC) | payer OTHER ==
[2023-10-16 11:37] LABS: BASO % 0.8 % (0-2.0); EOS % 2.9 % (0-4.5); HEMATOCRIT 40.7 % (32.4-45.2); HEMOGLOBIN 13.2 GM/dL (10.7-15.3); LYMPH % 37.3 % (8-40); MCH 27.9 pg (25.7-33.7); MCHC 32.4 g/dl (32.0-36.0); MEAN CELL VOLUME 86.2 fl (80-96); MEAN PLT VOLUME 8.2 fl (7.5-11.1); MONO % 5.9 % (3.8-10.2); NEUT % 53.1 % (42.8-82.8); PLATELET COUNT 333 10^3/uL (134-434); RBC 4.72 M/mm3 (3.60-5.2); RDW 15.2 % (11.6-15.6); WHITE BLOOD COUNT 7.9 K/mm3 (4.0-10.0)
[2023-10-16 11:50] LABS: POTASSIUM 4.2 mmol/L (3.5-5.1)
[2023-10-16 11:52] LABS: ALBUMIN 3.7 g/dl (3.4-5.0)
[2023-10-16 11:53] LABS: BLOOD UREA NITROGEN 15.6 mg/dL (7-18); MAGNESIUM 2.4 mg/dL (1.8-2.4)
[2023-10-16 11:55] LABS: BILIRUBIN,DIRECT 0.1 mg/dL (0.0-0.2); CREATININE 0.7 mg/dL (0.55-1.3)
[2023-10-16 11:57] LABS: BILIRUBIN,TOTAL 0.3 mg/dL (0.2-1); TOT PROT 7.5 g/dl (6.4-8.2)
[2023-10-16 12:45] VITALS: BP 116/80; PULSE 83; RESP 18; TEMP 98
[2023-10-17 10:07] LABS: FOLLICLE STIMULATING HORMONE 5.4 mIU/mL (.); LUTEINIZING HORMONE < 0.3 mIU/mL (.)
== END 2023-10-16 12:00 | disposition home or self-care (01) ==
LOC: JONCCHEMO 10:55 → J7W 11:00 → JONCCHEMO 12:00
PROVIDERS: ATTEND Internal Medicine Hematology & Oncology
DX: Z51.11 Encounter for antineoplastic chemotherapy (principal); C50.911 Malignant neoplasm of unspecified site of right female breast
CPT/HCPCS: 36415; 80053; 80076; 82306; 82378; 82670; 83001; 83002; 83735; 84703; 85025; 86300; 96402; J9202

== ENCOUNTER 2023-11-13 10:58 | Day surgery (SDC) | payer OTHER ==
[2023-11-13 12:04] LABS: BASO % 0.7 % (0-2.0); EOS % 1.2 % (0-4.5); HEMATOCRIT 38.2 % (32.4-45.2); HEMOGLOBIN 12.9 GM/dL (10.7-15.3); LYMPH % 37.4 % (8-40); MCH 28.9 pg (25.7-33.7); MCHC 33.6 g/dl (32.0-36.0); MEAN CELL VOLUME 85.9 fl (80-96); MEAN PLT VOLUME 8.3 fl (7.5-11.1); MONO % 4.8 % (3.8-10.2); NEUT % 55.9 % (42.8-82.8); PLATELET COUNT 313 10^3/uL (134-434); RBC 4.45 M/mm3 (3.60-5.2); RDW 15.1 % (11.6-15.6); WHITE BLOOD COUNT 6.4 K/mm3 (4.0-10.0)
[2023-11-13 12:34] LABS: POTASSIUM 4.3 mmol/L (3.5-5.1)
[2023-11-13 12:36] LABS: ALBUMIN 3.7 g/dl (3.4-5.0); BLOOD UREA NITROGEN 15.6 mg/dL (7-18); CALCIUM 9.1 mg/dL (8.5-10.1)
[2023-11-13 12:39] LABS: BILIRUBIN,DIRECT 0.2 mg/dL (0.0-0.2); CREATININE 0.7 mg/dL (0.55-1.3)
[2023-11-13 12:40] LABS: MAGNESIUM 2.6 mg/dL (1.8-2.4)
[2023-11-13 12:41] LABS: BILIRUBIN,TOTAL 0.4 mg/dL (0.2-1); TOT PROT 7.6 g/dl (6.4-8.2)
[2023-11-13 16:56] VITALS: BP 118/78; PULSE 74; RESP 18; TEMP 97.7
[2023-11-14 08:06] LABS: CARCINOEMBRYONIC ANTIGEN 0.9 ng/mL (0.0-4.7); FOLLICLE STIMULATING HORMONE 5.3 mIU/mL (.); LUTEINIZING HORMONE < 0.3 mIU/mL (.)
== END 2023-11-13 11:45 | disposition home or self-care (01) ==
LOC: JONCCHEMO 10:58 → J7W 11:00 → JONCCHEMO 11:45
PROVIDERS: ATTEND Internal Medicine Hematology & Oncology
DX: Z51.11 Encounter for antineoplastic chemotherapy (principal); C50.911 Malignant neoplasm of unspecified site of right female breast
CPT/HCPCS: 36415; 80053; 80076; 82306; 82378; 82670; 83001; 83002; 83735; 84703; 85025; 86300; 96402; J9202

== ENCOUNTER 2023-12-11 11:28 | Day surgery (SDC) | payer OTHER ==
[2023-12-11] MEDS: LIDOCAINE HCL 1%, 10 MG/ML (20ML VIAL) ID ONE (11:35)
[2023-12-11] MEDS: GOSERELIN ACETATE 3.6 MG IMPLANT SYRINGE SQ ONE (11:35)
[2023-12-11 12:00] LABS: BASO % 0.5 % (0-2.0); HEMATOCRIT 39.4 % (32.4-45.2); HEMOGLOBIN 13.1 GM/dL (10.7-15.3); LYMPH % 32.7 % (8-40); MCH 29.1 pg (25.7-33.7); MCHC 33.4 g/dl (32.0-36.0); MEAN CELL VOLUME 87.3 fl (80-96); MEAN PLT VOLUME 8.9 fl (7.5-11.1); MONO % 4.3 % (3.8-10.2); NEUT % 61.5 % (42.8-82.8); PLATELET COUNT 305 10^3/uL (134-434); RBC 4.51 M/mm3 (3.60-5.2); RDW 15.1 % (11.6-15.6); WHITE BLOOD COUNT 8.2 K/mm3 (4.0-10.0)
[2023-12-11 12:18] VITALS: BP 128/75; PULSE 86; RESP 18; TEMP 179
[2023-12-11 14:17] LABS: ALBUMIN 3.7 g/dl (3.4-5.0); BILIRUBIN,DIRECT 0.1 mg/dL (0.0-0.2); BILIRUBIN,TOTAL 0.5 mg/dL (0.2-1); BLOOD UREA NITROGEN 19.2 mg/dL (7-18); CREATININE 0.8 mg/dL (0.55-1.3); MAGNESIUM 2.5 mg/dL (1.8-2.4); POTASSIUM 4.1 mmol/L (3.5-5.1); TOT PROT 7.5 g/dl (6.4-8.2)
[2023-12-13 08:06] LABS: FOLLICLE STIMULATING HORMONE 5.2 mIU/mL (.); LUTEINIZING HORMONE < 0.3 mIU/mL (.)
[2023-12-15 23:09] LABS: CARCINOEMBRYONIC ANTIGEN 0.8 ng/mL (0.0-4.7)
== END 2023-12-11 12:25 | disposition home or self-care (01) ==
LOC: J7W 11:28 → JONCCHEMO 11:28
PROVIDERS: ATTEND Internal Medicine Hematology & Oncology
DX: Z51.11 Encounter for antineoplastic chemotherapy (principal); C50.911 Malignant neoplasm of unspecified site of right female breast
CPT/HCPCS: 36415; 80053; 80076; 82306; 82378; 82670; 83001; 83002; 83735; 84703; 85025; 86300; 96402; J9202

== ENCOUNTER 2024-01-06 11:19 | Day surgery (SDC) | payer OTHER ==
[2024-01-06] MEDS: LIDOCAINE HCL 1%, 10 MG/ML (20ML VIAL) ID ONE (12:00)
[2024-01-06] MEDS: GOSERELIN ACETATE 3.6 MG IMPLANT SYRINGE SQ ONE (12:01)
[2024-01-06 12:26] LABS: BASO % 0.3 % (0-2.0); EOS % 0.7 % (0-4.5); HEMATOCRIT 36.5 % (32.4-45.2); HEMOGLOBIN 12.4 GM/dL (10.7-15.3); LYMPH % 33.6 % (8-40); MCH 29.1 pg (25.7-33.7); MEAN CELL VOLUME 85.7 fl (80-96); MEAN PLT VOLUME 8.5 fl (7.5-11.1); MONO % 6.6 % (3.8-10.2); NEUT % 58.8 % (42.8-82.8); PLATELET COUNT 297 10^3/uL (134-434); RBC 4.26 M/mm3 (3.60-5.2); RDW 15.1 % (11.6-15.6); WHITE BLOOD COUNT 9.7 K/mm3 (4.0-10.0)
[2024-01-06 12:32] LABS: INR 1.2 (0.83-1.09); PROTHROMBIN TIME (PATIENT) 13.9 SEC (9.7-13.0)
[2024-01-06 12:35] LABS: ACTIVATED PTT 32.5 SECONDS (25.2-36.5)
[2024-01-06 13:18] LABS: POTASSIUM 3.4 mmol/L (3.5-5.1)
[2024-01-06 13:20] LABS: ALBUMIN 3.4 g/dl (3.4-5.0); CALCIUM 8.7 mg/dL (8.5-10.1)
[2024-01-06 13:21] LABS: BLOOD UREA NITROGEN 13.5 mg/dL (7-18); MAGNESIUM 2.2 mg/dL (1.8-2.4)
[2024-01-06 13:23] LABS: BILIRUBIN,DIRECT 0.2 mg/dL (0.0-0.2); CREATININE 0.7 mg/dL (0.55-1.3)
[2024-01-06 13:25] LABS: BILIRUBIN,TOTAL 0.4 mg/dL (0.2-1); TOT PROT 6.4 g/dl (6.4-8.2)
[2024-01-06 14:53] VITALS: BP 119/74; PULSE 45; RESP 18; TEMP 98.3
[2024-01-07 10:11] LABS: FOLLICLE STIMULATING HORMONE 4.3 mIU/mL (.); LUTEINIZING HORMONE < 0.3 mIU/mL (.)
== END 2024-01-06 12:30 | disposition home or self-care (01) ==
LOC: JONCCHEMO 11:19 → J7W 11:20 → JONCCHEMO 12:30
PROVIDERS: ATTEND Internal Medicine Hematology & Oncology
DX: Z51.11 Encounter for antineoplastic chemotherapy (principal); C90.00 Multiple myeloma not having achieved remission
CPT/HCPCS: 36415; 80053; 80076; 82306; 82378; 82670; 83001; 83002; 83735; 84703; 85025; 85610; 85730; 86300; 96402; J9202

== ENCOUNTER 2024-02-05 11:17 | Day surgery (SDC) | payer OTHER ==
[2024-02-05] MEDS: LIDOCAINE HCL 1%, 10 MG/ML (20ML VIAL) ID ONE (11:24)
[2024-02-05] MEDS: GOSERELIN ACETATE 3.6 MG IMPLANT SYRINGE SQ ONE (11:24)
[2024-02-05 11:48] LABS: BASO % 0.6 % (0-2.0); EOS % 2.1 % (0-4.5); HEMATOCRIT 38.3 % (32.4-45.2); HEMOGLOBIN 12.5 GM/dL (10.7-15.3); LYMPH % 40.6 % (8-40); MCH 28.7 pg (25.7-33.7); MCHC 32.6 g/dl (32.0-36.0); MEAN CELL VOLUME 88.1 fl (80-96); MEAN PLT VOLUME 8.4 fl (7.5-11.1); MONO % 5.6 % (3.8-10.2); NEUT % 51.1 % (42.8-82.8); PLATELET COUNT 327 10^3/uL (134-434); RBC 4.34 M/mm3 (3.60-5.2); RDW 15.7 % (11.6-15.6); WHITE BLOOD COUNT 8.2 K/mm3 (4.0-10.0)
[2024-02-05 12:05] LABS: POTASSIUM 4.4 mmol/L (3.5-5.1)
[2024-02-05 12:08] LABS: BLOOD UREA NITROGEN 17.1 mg/dL (7-18)
[2024-02-05 12:09] LABS: CALCIUM 9.1 mg/dL (8.5-10.1)
[2024-02-05 12:10] LABS: ALBUMIN 3.3 g/dl (3.4-5.0); MAGNESIUM 2.3 mg/dL (1.8-2.4)
[2024-02-05 12:11] LABS: CREATININE 0.8 mg/dL (0.55-1.3)
[2024-02-05 12:12] LABS: BILIRUBIN,DIRECT 0.1 mg/dL (0.0-0.2); BILIRUBIN,TOTAL 0.3 mg/dL (0.2-1); TOT PROT 6.6 g/dl (6.4-8.2)
[2024-02-05 14:46] VITALS: BP 112/66; PULSE 86; RESP 20; TEMP 97.7
[2024-02-06 08:10] LABS: CARCINOEMBRYONIC ANTIGEN 0.9 ng/mL (0.0-4.7); FOLLICLE STIMULATING HORMONE 5.3 mIU/mL (.); LUTEINIZING HORMONE < 0.3 mIU/mL (.)
== END 2024-02-05 11:40 | disposition home or self-care (01) ==
LOC: JONCCHEMO 11:17 → J7W 13:18
PROVIDERS: ATTEND Internal Medicine Hematology & Oncology
DX: Z51.11 Encounter for antineoplastic chemotherapy (principal); C90.00 Multiple myeloma not having achieved remission
CPT/HCPCS: 36415; 80053; 80076; 82306; 82378; 82670; 83001; 83002; 83735; 84703; 85025; 86300; 96402; J9202

== ENCOUNTER 2024-04-08 11:45 | Day surgery (SDC) | payer OTHER ==
[2024-04-08] MEDS: LIDOCAINE HCL 1%, 10 MG/ML (20ML VIAL) ID ONE (12:12)
[2024-04-08] MEDS: GOSERELIN ACETATE 3.6 MG IMPLANT SYRINGE SQ ONE (12:12)
[2024-04-08 12:30] LABS: BASO % 0.4 % (0-2.0); EOS % 1.6 % (0-4.5); HEMATOCRIT 38.9 % (32.4-45.2); HEMOGLOBIN 13.1 GM/dL (10.7-15.3); LYMPH % 38.3 % (8-40); MCH 29.3 pg (25.7-33.7); MCHC 33.7 g/dl (32.0-36.0); MEAN CELL VOLUME 86.9 fl (80-96); MEAN PLT VOLUME 8.5 fl (7.5-11.1); MONO % 6.5 % (3.8-10.2); NEUT % 53.2 % (42.8-82.8); PLATELET COUNT 277 10^3/uL (134-434); RBC 4.48 M/mm3 (3.60-5.2); RDW 14.7 % (11.6-15.6); WHITE BLOOD COUNT 6.6 K/mm3 (4.0-10.0)
[2024-04-08 13:16] LABS: POTASSIUM 4.3 mmol/L (3.5-5.1)
[2024-04-08 13:19] LABS: ALBUMIN 3.7 g/dl (3.4-5.0); BLOOD UREA NITROGEN 16.1 mg/dL (7-18); CALCIUM 8.9 mg/dL (8.5-10.1); MAGNESIUM 2.4 mg/dL (1.8-2.4)
[2024-04-08 13:22] LABS: BILIRUBIN,DIRECT 0.1 mg/dL (0.0-0.2); CREATININE 0.6 mg/dL (0.55-1.3)
[2024-04-08 13:24] VITALS: BP 132/87; PULSE 75; RESP 18; TEMP 97.6
[2024-04-08 13:24] LABS: BILIRUBIN,TOTAL 0.3 mg/dL (0.2-1); TOT PROT 7.1 g/dl (6.4-8.2)
[2024-04-09 08:10] LABS: CARCINOEMBRYONIC ANTIGEN 0.8 ng/mL (0.0-4.7); FOLLICLE STIMULATING HORMONE 4.5 mIU/mL (.); LUTEINIZING HORMONE < 0.3 mIU/mL (.)
== END 2024-04-08 12:20 | disposition home or self-care (01) ==
LOC: JONCCHEMO 11:45 → J7W 11:46 → JONCCHEMO 12:20
PROVIDERS: ATTEND Internal Medicine Hematology & Oncology
DX: Z51.11 Encounter for antineoplastic chemotherapy (principal); C50.911 Malignant neoplasm of unspecified site of right female breast
CPT/HCPCS: 36415; 80053; 80076; 82306; 82378; 82670; 83001; 83002; 83735; 84703; 85025; 86300; 96402; J9202

== ENCOUNTER 2024-05-06 11:28 | Day surgery (SDC) | payer OTHER ==
[2024-05-06] MEDS: GOSERELIN ACETATE 3.6 MG IMPLANT SYRINGE SQ ONE (11:45)
[2024-05-06] MEDS: LIDOCAINE HCL 1%, 10 MG/ML (20ML VIAL) ID ONE (11:45)
[2024-05-06 12:06] LABS: BASO % 0.5 % (0-2.0); EOS % 0.5 % (0-4.5); HEMATOCRIT 37.5 % (32.4-45.2); HEMOGLOBIN 12.6 GM/dL (10.7-15.3); MCH 29.1 pg (25.7-33.7); MCHC 33.6 g/dl (32.0-36.0); MEAN CELL VOLUME 86.6 fl (80-96); MEAN PLT VOLUME 8.3 fl (7.5-11.1); MONO % 5.9 % (3.8-10.2); NEUT % 61.1 % (42.8-82.8); PLATELET COUNT 281 10^3/uL (134-434); RBC 4.33 M/mm3 (3.60-5.2); RDW 14.6 % (11.6-15.6); WHITE BLOOD COUNT 9.5 K/mm3 (4.0-10.0)
[2024-05-06 12:26] LABS: CHLORIDE 108 mmol/L (98-107); SODIUM 140 mmol/L (136-145)
[2024-05-06 12:28] LABS: ALBUMIN 3.5 g/dl (3.4-5.0); ANION GAP 6 mmol/L (4-13); CALCIUM 8.7 mg/dL (8.5-10.1); CO2 27 mmol/L (21-32); GLUCOSE,RANDOM 93 mg/dL (74-106)
[2024-05-06 12:29] LABS: BLOOD UREA NITROGEN 18.7 mg/dL (7-18); MAGNESIUM 2.7 mg/dL (1.8-2.4)
[2024-05-06 12:31] LABS: BILIRUBIN,DIRECT 0.1 mg/dL (0.0-0.2); CREATININE 0.8 mg/dL (0.55-1.3); SGOT/AST 15 U/L (15-37); SGPT/ALT 23 U/L (13-61)
[2024-05-06 12:33] LABS: BILIRUBIN,TOTAL 0.5 mg/dL (0.2-1)
[2024-05-06 12:34] LABS: ALK PHOS 116 U/L (45-117)
[2024-05-06 17:07] VITALS: BP 118/73; PULSE 80; RESP 18; TEMP 98
[2024-05-07 10:12] LABS: CARCINOEMBRYONIC ANTIGEN 0.7 ng/mL (0.0-4.7); FOLLICLE STIMULATING HORMONE 4.1 mIU/mL (.); LUTEINIZING HORMONE < 0.3 mIU/mL (.)
== END 2024-05-06 12:00 | disposition home or self-care (01) ==
LOC: J7W 11:28 → JONCCHEMO 11:28
PROVIDERS: ATTEND Internal Medicine Hematology & Oncology
DX: Z51.11 Encounter for antineoplastic chemotherapy (principal); C50.919 Malignant neoplasm of unspecified site of unspecified female breast
CPT/HCPCS: 36415; 80053; 80076; 82306; 82378; 82670; 83001; 83002; 83735; 84703; 85025; 86300; 96402; J9202

== ENCOUNTER 2025-07-01 06:08 | Day surgery (SDC) | payer OTHER ==
[2025-06-29 11:24] VITALS: BMI 31.4
[2025-07-01] MEDS ORDERED: MIDAZOLAM HCL 2 MG/2 ML SINGLE DOSE VIAL ONE (08:14)
[2025-07-01] MEDS ORDERED: PROPOFOL 20 ML ONE ×2 (08:14→09:14)
[2025-07-01] MEDS ORDERED: LIDOCAINE HCL/PF 2% SDV 5ML VIAL ONE (08:14)
[2025-07-01] MEDS ORDERED: ONDANSETRON 4 MG/2 ML VIAL IVPUSH PRN (08:38)
[2025-07-01] MEDS ORDERED: PROMETHAZINE HCL 25 MG/1 ML VIAL IVPB PRN (08:38)
[2025-07-01] MEDS ORDERED: LACTATED RINGERS SOLUTION 1,000 ML IV SCH (08:45)
[2025-07-01] MEDS ORDERED: DEXAMETHASONE SOD PHOSPHATE 4 MG/1 ML VIAL ONE ×2 (09:10→10:27)
[2025-07-01] MEDS ORDERED: KETOROLAC TROMETHAMINE 30 MG/1 ML VIAL ONE ×2 (09:10→10:27)
[2025-07-01] MEDS ORDERED: ONDANSETRON 4 MG/2 ML VIAL ONE (10:27)
[2025-07-01] MEDS: ACETAMINOPHEN INJECTION 100 ML ONE (10:57)
[2025-07-01] MEDS: ACETAMINOPHEN 1000 MG/100 ML BAG IVPB ONE (10:57)
[2025-07-01 12:03] VITALS: RESP 18; TEMP 97.7
[2025-07-01 12:47] VITALS: BP 122/70; PULSE 84
== END 2025-07-01 12:40 | disposition home or self-care (01) ==
LOC: JASU-SURG 06:08
PROVIDERS: ATTEND Obstetrics & Gynecology
PROC: 0UDB8ZZ Extraction of Endometrium, Via Natural or Artificial Opening Endoscopic (ICD-10-PCS; principal; 2025-07-01 09:00)
DX: N95.0 Postmenopausal bleeding (principal)
CPT/HCPCS: 81025; 88305-TC; 94760